=== PATIENT | female | born 1930 | race Caucasian/White ===

== ENCOUNTER 2017-10-04 12:20 | Inpatient (IN) | payer MEDICARE, BC ==
[~2017-10-04] VITALS: Ht 167.6 cm; Wt 83.0 kg
--- NOTE | 2017-10-04 12:26 | NUR ---
BIBRA 86 FROM MD OFFICE D/T SYNCOPAL EPISODE. HYPOTENSIVE IN FIELD, 89 SYSTOLIC. IV ESTABLISHED IN FIELD ON LEFT WRIST, 20G; 500CC NS GIVEN HAND ETCHER. PATIENT IS A/O X 3 AT THIS TIME, BREATHING EVEN AND UNLABORED. NO SOB, NAD, VITALS STABLE. SAFETY AND COMFORT MEASURES IN PLACE. AWAITING MD ORDERS.
[2017-10-04] MEDS ORDERED: MEROPENEM 1 G in IV NS 0.9% 100 ML IV ONE (12:30)
[2017-10-04] MEDS ORDERED: IV NS 0.9% 1,000 ML BAG IV ONE (12:30)
--- NOTE | 2017-10-04 12:39 | NUR ---
IV ON LEFT WRIST BECAME DISLODGED. IV REMOVED, SITE SECURED WITH GAUZE AND TAPE. NEW IV STARTED ON RIGHT HAND, 20G. BLOOD DRAWN AND SENT TO LAB.
[2017-10-04 13:10] LABS: CALCIUM, SERUM 8.2 mg/dL (8.5-10.1); CARBON DIOXIDE 27 mmol/L (21-32); CHLORIDE 105 mmol/L (98-107); CREATININE 1.3 mg/dL (0.6-1.3); GLUCOSE 131 mg/dL (74-106); POTASSIUM 3.9 mmol/L (3.5-5.1); SODIUM SERUM 138 mmol/L (136-145); UREA NITROGEN, BLOOD 29 mg/dL (7-18)
[2017-10-04 13:14] LABS: INR 0.96 (0.85-1.15)
--- NOTE | 2017-10-04 13:15 | NUR ---
CALLED NURSING SUP. FOR TELE BED
[2017-10-04 13:16] LABS: ALANINE AMINOTRANSFERASE 19 U/L (12-78); ALBUMIN 2.6 g/dL (3.4-5.0); ALKALINE PHOSPHATASE 59 U/L (46-116); ASPARTATE AMINOTRANSFERASE 15 U/L (15-37); BILIRUBIN,DIRECT 0.2 mg/dL (0.0-0.2); BILIRUBIN,TOTAL 0.7 mg/dL (0.2-1.0); TOTAL PROTEIN, SERUM 6.1 g/dL (6.4-8.2)
[2017-10-04 13:18] LABS: TROPONIN I < 0.017 ng/mL (0.00-0.056)
[2017-10-04 13:19] LABS: BASOPHILS % (AUTO) 0.1 % (0.0-2.0); EOSINOPHILS % (AUTO) 4.4 % (0.0-6.0); HEMATOCRIT 32 % (33-45); HEMOGLOBIN 10.9 g/dL (11.5-14.8); LYMPHOCYTES # (AUTO) 0.7 /CMM (0.8-4.8); LYMPHOCYTES % (AUTO) 10.7 % (20.0-44.0); MEAN CORPUSCULAR HEMOGLOBIN 33 PG (26.0-33.0); MEAN CORPUSCULAR HGB CONC 34 g/dl (31.0-36.0); MEAN CORPUSCULAR VOLUME 98 fL (82-100); MONOCYTES # (AUTO) 0.2 /CMM (0.1-1.30); MONOCYTES % (AUTO) 3.6 % (2.0-12.0); NEUTROPHILS % (AUTO) 81.2 % (43.0-81.0); PLATELET COUNT (AUTO) 146 /CMM (150-450); WHITE BLOOD COUNT (AUTO) 6.1 K/uL (4.3-11.0)
[2017-10-04] MEDS ORDERED: OMEP20CA10 PO (13:35)
[2017-10-04] MEDS ORDERED: ESTR42.5 VG (13:35)
[2017-10-04] MEDS ORDERED: MULT-213 PO (13:35)
[2017-10-04] MEDS ORDERED: CALC-494 PO (13:35)
[2017-10-04] MEDS ORDERED: ACET325T53 PO (13:35)
[2017-10-04] MEDS ORDERED: CRAN450T3 PO (13:35)
[2017-10-04] MEDS ORDERED: POTA10TA10 PO (13:35)
[2017-10-04] MEDS ORDERED: LENA5CAP PO (13:35)
[2017-10-04] MEDS ORDERED: CARV3.122 PO (13:35)
[2017-10-04] MEDS ORDERED: IPRA3AMP IH (13:35)
[2017-10-04] MEDS ORDERED: NA P133E RC (13:35)
[2017-10-04] MEDS ORDERED: CHOL20004 PO (13:35)
[2017-10-04] MEDS ORDERED: BETH25TA PO (13:35)
[2017-10-04] MEDS ORDERED: LACT1CAP69 PO (13:35)
[2017-10-04] MEDS ORDERED: CYAN10009 PO (13:35)
[2017-10-04] MEDS ORDERED: ASPI-1169 PO (13:35)
[2017-10-04] MEDS ORDERED: BISA10SU8 RC (13:35)
[2017-10-04] MEDS ORDERED: CALC0.253 PO (13:35)
[2017-10-04] MEDS ORDERED: MAGN400O6 PO (13:35)
[2017-10-04] MEDS ORDERED: CYAN10006 IM (13:35)
[2017-10-04] MEDS ORDERED: ASCO500T9 PO (13:35)
[2017-10-04] MEDS ORDERED: ATOR20TA PO (13:35)
[2017-10-04] MEDS ORDERED: TAMS0.4C34 PO (13:35)
[2017-10-04] MEDS ORDERED: MAG355OR18 PO (13:35)
[2017-10-04] MEDS ORDERED: LEVE500T9 PO (13:35)
[2017-10-04] MEDS ORDERED: HYDR-4076 PO (13:35)
[2017-10-04] MEDS ORDERED: PROT946L PO (13:35)
[2017-10-04] MEDS ORDERED: LACT10SO PO (13:35)
[2017-10-04] MEDS ORDERED: MEMA28CA PO (13:35)
[2017-10-04] MEDS ORDERED: FURO-145 PO (13:35)
[2017-10-04] MEDS ORDERED: OMEG1CAP PO (13:35)
--- NOTE | 2017-10-04 13:37 | NUR ---
URINE OBTAINED VIA STRAIGHT CATH AND SENT TO LAB PER MD ORDERS. 300 ML OUTPUT, YELLOW AND CLOUDY.
--- NOTE | 2017-10-04 13:54 | NUR ---
[facility] PAGED, MARISA BORDEN CHIEF OPHTHALMIC TECHNICIAN
--- NOTE | 2017-10-04 13:55 | NUR ---
REPORT GIVEN TO RNSHANIQUE FOR IMER UPON ADMISSION. ASSIGNED TO ROOM 308-1.
[2017-10-04 14:06] LABS: APPEARANCE,URINE Clear (CLEAR); BILIRUBIN,URINE Negative (NEGATIVE); BLOOD, URINE Negative Ery/uL (NEGATIVE); COLOR,URINE Yellow (YELLOW); KETONES,URINE Negative (NEGATIVE); LEUKOCYTE ESTERASE ,URINE Negative (NEGATIVE); NITRITE, URINE Positive (NEGATIVE); PROTEIN,URINE 30 mg/dl (NEGATIVE); UGLUCOSE Negative (NEGATIVE)
[2017-10-04 14:09] LABS: BACTERIA,URINE Many /HPF (None Seen); RBC,URINE 0-2 /HPF (0-2); SQUAMOUS EPITHELIAL CELL,UR Few /HPF (None Seen)
--- NOTE | 2017-10-04 14:17 | NUR ---
REPORT GIVEN TO HOSEA CLOUD FOR IMER UPON ADMISSION. PATIENT NOW GOING TO 116-2.
[2017-10-04] MEDS ORDERED: ONDANSETRON HCL/PF 4 MG/2 ML VIAL IVP PRN (15:00)
[2017-10-04] MEDS ORDERED: MAG HYDROX/AL HYDROX/SIMETH 30 ML UDC PO PRN ×2 (15:00)
[2017-10-04] MEDS ORDERED: BISACODYL SUPP (10 MG) 10 MG/SUPP.RECT SUPP.RECT RC PRN (15:00)
[2017-10-04] MEDS ORDERED: ACETAMINOPHEN 325 MG TABLET PO PRN ×2 (15:00)
[2017-10-04] MEDS ORDERED: Z GUARD REMEDY 2 OZ OINT TP PRN (15:00)
[2017-10-04] MEDS ORDERED: Medication Not On Formulary EA (Ipratropium/Albuterol Sulfate (Duoneb 2.5-0.5 Mg/3 Ml So IH PRN (15:00)
[2017-10-04] MEDS ORDERED: HYDROCODONE/APAP 5/325MG 1 EACH TABLET PO PRN (15:00)
[2017-10-04] MEDS ORDERED: MAGNESIUM HYDROXIDE 30 ML UDC PO PRN ×2 (15:00)
--- NOTE | 2017-10-04 15:02 | NUR ---
PATIENT TRANSPORTED TO [facility] VIA ACLS PROTOCOL. HOSEA CLOUD TO PROVIDE IMER.
[2017-10-04] MEDS ORDERED: CALCIUM CARBONATE 500 MG TAB.CHEW PO PRN (15:30)
--- NOTE | 2017-10-04 15:34 | NUR ---
RN MENDOZA INITIAL NOTES RECEIVED REPORT AND PT FROM ER NURSE EMILI, PT RESTING IN BED, A&O X1 ONLY KNOWS HERSELF VERY CONFUSED, CAREGIVER EZEQUIEL AND DAUGHTER ANUSHKA AT BEDSIDE, DAUGHTERS PHONE NUMBER [phone], PTS FAMILY STATES PT FROM [facility] IN [place], SKIN CHECK COMPLETE WITH NO SKIN ISSUES, ON RA SAT ABOVE 97%, NO SOB OR ACUTE DISTRESS, ON TELE MON SR WITH HR 67, PTS DAUGHTER ANUSHKA IS DECISION MAKER, RT HAND 20 G IV INTACT PATENT NO INFILTRATION NOTED, HOB ELEVATED, BED LOW AND LOCKED, CALL LIGHT WITHIN REACH, PTS FAMILY STATES PT ON PUREE THICK NECTAR ONLY DIET, VS: BP 110/52, HR 70, T 97.6,RESP 18, O2 97% ON RA, 0/10 PAIN. ADMISSION PACKET TO BE COMPLETED. ALL NEEDS MET AT THIS TIME, WILL CONTINUE TO MONITOR.
[2017-10-04 16:00] VITALS: BP 110/52
[2017-10-04] MEDS ORDERED: ALBUTEROL FS 2.5 MG/3 ML VIAL.NEB NEB PRN (16:00)
[2017-10-04] MEDS ORDERED: LACTULOSE 10 G/15 ML UDC (PYXIS) PO PRN (16:00)
[2017-10-04] MEDS ORDERED: IPRATROPIUM NEB FS 0.5 MG/2.5 ML AMPUL.NEB NEB PRN (16:00)
[2017-10-04] MEDS: IV NS 0.9% 1,000 ML IV PRN (16:32)
[2017-10-04] MEDS: LACTOBACILLUS RHAMNOSUS GG 1 EACH CAP.SPRINK PO SCH (16:32)
[2017-10-04] MEDS: MEMANTINE HCL 5 MG TABLET PO SCH (16:32)
[2017-10-04] MEDS: MEROPENEM 500 MG in IV NS 0.9% 50 ML IV SCH (16:33)
[2017-10-04] MEDS: BETHANECHOL CHLORIDE (25 MG) 25 MG TABLET PO SCH ×2 (16:40→21:22)
[2017-10-04] MEDS ORDERED: Medication Not On Formulary EA (Cranberry Extract (Cranberry) 450 MG) PO SCH (17:00)
[2017-10-04] MEDS ORDERED: Medication Not On Formulary EA (Omega-3 Fatty Acids/Fish Oil (Fish Oil 1,000 Mg Capsule) PO SCH (17:00)
[2017-10-04] MEDS ORDERED: FEE PK DOSING 1 MIN EA MC ONE (17:30)
--- NOTE | 2017-10-04 17:45 | NUR ---
RN MENDOZA NOTES BLADDER SCAN DONE MD ORDERED NO URINE FOUND IN SCAN, WILL DO ANOTHER Q6 BLADDER SCAN AT 2345 AND IF MORE THAN 300 ML WILL NEED TO DO STRAIGHT IN AND OUT CATH MD ORDERED.
--- NOTE | 2017-10-04 17:54 | NUR ---
RN MENDOZA NOTES SIGNED PLACED ABOVE PTS BED STATING DIET REGIME AND DIET CONSIDERATIONS, NEED TO FOLLOW DIET PLAN.
--- NOTE | 2017-10-04 17:56 | NUR ---
RN MENDOZA NOTES PTS FAMILY STATED NO DIAPERS BC FAMILY REFUSES DIAPERS.
[2017-10-04] MEDS ORDERED: ESTROGENS,CONJUGATED TUBE VG SCH (18:00)
--- NOTE | 2017-10-04 18:35 | NUR ---
RN MENDOZA ENDING NOTES PTS LATEX ALLERGY SIGN PLACED ON DOOR, LATEX FREE GLOVES ARE INSIDE ROOM NEXT TO PTS BED, ALL NEEDS MET, ALL DUE MEDS GIVEN, WILL ENDORSE TO PM NURSE
[2017-10-04] MEDS: VANCOMYCIN 1 GM in IV D5W 250 ML IV SCH (18:41)
[2017-10-04 20:00] VITALS: BP 135/57
--- NOTE | 2017-10-04 20:00 | NUR ---
RN NOTE RECEIVED PATIENT IN THE BED, ORIENTED TO NAME ONLY, AWAKE, ONGOING FLUIDS, FAMILY IS BY BEDSIDE, NO DISTRESS NOTED, PATIENT IS ALLERGIC TO LATEX, WILL TAKE ALL SAFETY MEASURES , WILL CONTINUE TO MONITOR PATIENT
[2017-10-04] MEDS: LEVETIRACETAM (250 MG) 250 MG TABLET PO SCH (21:22)
[2017-10-05] VITALS: BP 106/39
--- NOTE | 2017-10-05 | NUR ---
RN NOTE BLADDER SCAN WAS DONE 196 ML NOTED, PRINTED OUT THE RECORD AND PLACED IN THE CHART
[2017-10-05 04:00] VITALS: BP 112/55
[2017-10-05] MEDS: MEROPENEM 500 MG in IV NS 0.9% 50 ML IV SCH ×2 (04:28→16:40)
--- NOTE | 2017-10-05 06:44 | NUR ---
RN NOTE BLADDER SCAN DONE, 37 ML NOTED, PRINTED OUT RESULT AND PLACED IN THE CHART
[2017-10-05 07:31] LABS: CHOLESTEROL 99 mg/dL (<200); HDL CHOLESTEROL 59 mg/dL (40-60); LDL 47 mg/dL (0-99); THYROID STIMULATING HORMONE 0.739 uIU/mL (0.358-3.74); TRIGLYCERIDES 89 mg/dL (30-150)
[2017-10-05 07:35] LABS: ALANINE AMINOTRANSFERASE 20 U/L (12-78); ALBUMIN 2.1 g/dL (3.4-5.0); ALKALINE PHOSPHATASE 45 U/L (46-116); ASPARTATE AMINOTRANSFERASE 12 U/L (15-37); BILIRUBIN,TOTAL 0.7 mg/dL (0.2-1.0); CARBON DIOXIDE 26 mmol/L (21-32); CHLORIDE 111 mmol/L (98-107); CREATININE 1.2 mg/dL (0.6-1.3); GLUCOSE 88 mg/dL (74-106); MAGNESIUM 1.7 mg/dL (1.8-2.4); PHOSPHORUS 3.2 mg/dL (2.5-4.9); POTASSIUM 3.7 mmol/L (3.5-5.1); SODIUM SERUM 142 mmol/L (136-145); TOTAL PROTEIN, SERUM 5.3 g/dL (6.4-8.2); UREA NITROGEN, BLOOD 18 mg/dL (7-18)
[2017-10-05 08:00] VITALS: BP 110/46
[2017-10-05] MEDS: ASPIRIN 81 MG TAB.CHEW PO SCH (08:22)
[2017-10-05] MEDS: LACTOBACILLUS RHAMNOSUS GG 1 EACH CAP.SPRINK PO SCH ×2 (08:22→17:33)
[2017-10-05] MEDS: TAMSULOSIN 0.4 MG CAP.SR.24H PO SCH (08:22)
[2017-10-05] MEDS: CHOLECALCIFEROL 1,000 UNIT TABLET (VIT D3) PO SCH (08:22)
[2017-10-05] MEDS: CALCITRIOL 0.25 MCG CAPSULE PO SCH (08:22)
[2017-10-05] MEDS: ASCORBIC ACID 500 MG TABLET PO SCH (08:22)
[2017-10-05] MEDS: BETHANECHOL CHLORIDE (25 MG) 25 MG TABLET PO SCH ×4 (08:22→21:30)
[2017-10-05] MEDS: PROSOURCE / PROSTAT (PYXIS) 30 ML UDC PO SCH (08:22)
[2017-10-05] MEDS: PANTOPRAZOLE 40 MG VIAL IV SCH (08:22)
[2017-10-05] MEDS: MULTIVIT, IRON, MIN NO. 8, FA 1 TAB PO SCH (08:22)
[2017-10-05] MEDS: LEVETIRACETAM (250 MG) 250 MG TABLET PO SCH ×2 (08:23→21:30)
[2017-10-05] MEDS: CYANOCOBALAMIN 500 MCG TABLET PO SCH (08:23)
[2017-10-05] MEDS: MEMANTINE HCL 5 MG TABLET PO SCH ×2 (08:23→17:33)
[2017-10-05] MEDS ORDERED: NA PHOS,M-B/NA PHOS,DI-BA 1 EA ENEMA RC SCH (09:00)
[2017-10-05] MEDS: IV NS 0.9% 1,000 ML IV PRN (11:17)
[2017-10-05 12:00] VITALS: BP 115/49
[2017-10-05] MEDS: Magnesium 1GM/D5W 100ML PREMIX 100 ML IV SCH ×2 (12:39→14:19)
[2017-10-05 16:00] VITALS: BP 131/49
[2017-10-05] MEDS: VANCOMYCIN 1 GM in IV D5W 250 ML IV SCH (17:33)
--- NOTE | 2017-10-05 19:25 | NUR ---
RN MENDOZA NOTE RECEIVED PATIENT RESTING COMFORTABLY IN BED, AOX1, TELE SR, NO CARDIAC OR RESPIRATORY DISTRESS, ON ROOM AIR, INCONTINENT, SKIN KEPT CLEAN AND DRY, R WRIST #20G PATENT FLUSHING WELL WITH NS AT 75ML/HR, PATENT FLUSHING WELL, SITE CDI, NO S/SX OF N/V, SAFETY MAINTAINED AT ALL TIMES, CALL LIGHT WITHIN REACH, BED IN LOW LOCKED POSITION, WILL CONTINUE TO MONITOR FOR ANY CHANGES IN CONDITION.
[2017-10-05 20:00] VITALS: BP 154/46
[2017-10-05] MEDS: ATORVASTATIN 10 MG TABLET PO SCH (21:30)
[2017-10-06] VITALS: BP 154/46
--- NOTE | 2017-10-06 00:56 | NUR ---
TELE/RN NOTES RECEIVED ENDORSEMENT FROM RN/MENDOZA FOR CONTINUITY OF CARE. PATIENT RESTING IN BED, ASLEEP. MONITORING FOR ANY S/S OF COMPLICATIONS. REQUIRE ASSISTANCE FOR SAFETY TELE MONITOR AT SR 66, BED IN LOCK POSITION. IV ON RIGHT HAND GAUGE 20 WITH IV HYDRATION ORDER, TO MONITOR . PATIENT WITH DX OF CHF. CALL LIGHT S WITHIN REACH.
--- NOTE | 2017-10-06 02:00 | NUR ---
tele/rn notes blader retention 80ml
[2017-10-06] MEDS: MEROPENEM 500 MG in IV NS 0.9% 50 ML IV SCH ×2 (03:31→15:44)
[2017-10-06 04:00] VITALS: BP 122/40
[2017-10-06 05:59] VITALS: BP 122/40
[2017-10-06 06:31] LABS: BASOPHILS % (AUTO) 0.3 % (0.0-2.0); EOSINOPHILS % (AUTO) 5.7 % (0.0-6.0); HEMATOCRIT 31 % (33-45); HEMOGLOBIN 10.4 g/dL (11.5-14.8); LYMPHOCYTES # (AUTO) 0.8 /CMM (0.8-4.8); LYMPHOCYTES % (AUTO) 22.4 % (20.0-44.0); MEAN CORPUSCULAR HEMOGLOBIN 33 PG (26.0-33.0); MEAN CORPUSCULAR HGB CONC 34 g/dl (31.0-36.0); MEAN CORPUSCULAR VOLUME 98 fL (82-100); MONOCYTES # (AUTO) 0.3 /CMM (0.1-1.30); NEUTROPHILS # (AUTO) 2.2 /CMM (1.8-8.9); NEUTROPHILS % (AUTO) 63.6 % (43.0-81.0); PLATELET COUNT (AUTO) 153 /CMM (150-450); RDW COEFFICIENT OF VARIATION 15.8 (11.5-15.0); RED BLOOD CELL COUNT(AUTO) 3.12 MIL/uL (4.0-5.2); WHITE BLOOD COUNT (AUTO) 3.5 K/uL (4.3-11.0)
--- NOTE | 2017-10-06 06:46 | NUR ---
TELE/RN NOTES PATIENT IN BED, ALERT, ASLEEP BUT AWAKENS EASILY. RESPIRATIONS EVEN AND UNLABORED, GET OBSERVED GURDING OR GRIMACE. ON SR AT 66, ON CHUCKS, KEEP SKIN INTACT AND DRY, IV ON RIGHT HAND W/ NO S/S OF INFILTRATION/BLADDER SCAN CHECK. SAFETY PRECAUTION MEASURES, ON GENTLE IV HYDRATION. WILL MONITOR AND PROVIDE CARE.WILL ENDORSE TO AM RN FOR IMER.
[2017-10-06 06:55] LABS: CALCIUM, SERUM 8.7 mg/dL (8.5-10.1); CARBON DIOXIDE 26 mmol/L (21-32); CHLORIDE 108 mmol/L (98-107); CREATININE 1.2 mg/dL (0.6-1.3); GLUCOSE 92 mg/dL (74-106); MAGNESIUM 2.2 mg/dL (1.8-2.4); PHOSPHORUS 3.4 mg/dL (2.5-4.9); POTASSIUM 3.5 mmol/L (3.5-5.1); SODIUM SERUM 141 mmol/L (136-145); UREA NITROGEN, BLOOD 17 mg/dL (7-18)
--- NOTE | 2017-10-06 07:30 | NUR ---
RN M/S INITIAL NOTES: RECEIVED PT IN BED AWAKE. A&O X1. ON ROOM AIR, NO RESPIRATORY DISTRESS NOTED AT THIS TIME. NO C/O PAIN OR DISCOMFORT. IV TO R HAND IN PLACE, CONNECTED TO IV FLUIDS AT 75ML/HR ORDERED. BED IN LOW LOCKED POSITION, CALL LIGHT WITHIN REACH. PLAN OF CARE DISCUSSED WITH PT. WILL CONTINUE TO MONITOR.
[2017-10-06 08:00] VITALS: BP 143/49
[2017-10-06] MEDS: PANTOPRAZOLE 40 MG VIAL IV SCH (08:55)
[2017-10-06] MEDS: ASPIRIN 81 MG TAB.CHEW PO SCH (08:56)
[2017-10-06] MEDS: LACTOBACILLUS RHAMNOSUS GG 1 EACH CAP.SPRINK PO SCH ×2 (08:56→16:30)
[2017-10-06] MEDS: CALCITRIOL 0.25 MCG CAPSULE PO SCH (08:56)
[2017-10-06] MEDS: CYANOCOBALAMIN 500 MCG TABLET PO SCH (08:56)
[2017-10-06] MEDS: MEMANTINE HCL 5 MG TABLET PO SCH ×2 (08:56→16:30)
[2017-10-06] MEDS: ASCORBIC ACID 500 MG TABLET PO SCH (08:56)
[2017-10-06] MEDS: CHOLECALCIFEROL 1,000 UNIT TABLET (VIT D3) PO SCH (08:57)
[2017-10-06] MEDS: BETHANECHOL CHLORIDE (25 MG) 25 MG TABLET PO SCH ×4 (08:57→21:57)
[2017-10-06] MEDS: TAMSULOSIN 0.4 MG CAP.SR.24H PO SCH (08:57)
[2017-10-06] MEDS: LEVETIRACETAM (250 MG) 250 MG TABLET PO SCH ×2 (08:57→21:57)
[2017-10-06] MEDS: MULTIVIT, IRON, MIN NO. 8, FA 1 TAB PO SCH (08:57)
[2017-10-06] MEDS: PROSOURCE / PROSTAT (PYXIS) 30 ML UDC PO SCH (09:02)
[2017-10-06] MEDS: IV NS 0.9% 1,000 ML IV PRN (10:12)
--- NOTE | 2017-10-06 11:00 | NUR ---
RN M/S NOTES: PT NOTED WITH MILD EDEMA TO BILAT HANDS. FAMILY CONCERNED THAT PT IS RECEIVING TOO MUCH FLUIDS AND RETAINING IT. SPOKE WITH MARISA LUNA. OK TO D/C IV FLUIDS. LABS SCHEDULED FOR TOMORROW AM. FAMILY MADE AWARE. WILL CONTINUE TO ENCOURAGE PT TO DRINK FLUIDS.
--- NOTE | 2017-10-06 13:00 | NUR ---
BLADDER SCAN DONE. 416CC RESULT. STRAIGHT CATH I&O PERFORMED. REMOVED 500CC. PT TOLERATED WELL,.
[2017-10-06 16:00] VITALS: BP 124/45
[2017-10-06] MEDS: VANCOMYCIN 1 GM in IV D5W 250 ML IV SCH (18:03)
--- NOTE | 2017-10-06 18:45 | NUR ---
BLADDER SCAN DONE. 116CC NOTED.
--- NOTE | 2017-10-06 19:00 | NUR ---
RN M/S END NOTE: PT REMAINS IN BED, AWAKE A&O X2. NOTED WITH INCREASED SWELLING TO R HAND. IV REMOVED AND RE-STARTED IN L WRIST #22GAUGE. PT TOLERATED WELL. R HAND REMAINS ELEVATED ON PILLOWS. DENIES ANY PAIN OR DISCOMFORT AT THIS TIME. REMAINS ON ROOM AIR, SATURATING >95% AT ALL TIMES. BED IN LOW LOCKED POSITION, CALL LIGHT WITHIN REACH. WILL ENDORSE TO PM SHIFT FOR CONTINUITY OF CARE.
[2017-10-06 20:00] VITALS: BP 111/44
--- NOTE | 2017-10-06 20:00 | NUR ---
MENDOZA RN NOTES RECEIVED BEDSIDE REPORT FROM AM NURSE. PT IN BED AWAKE. A&O X1. ON ROOM AIR, NO RESPIRATORY DISTRESS NOTED AT THIS TIME. NO C/O PAIN OR DISCOMFORT. IV TO LEFT WRIST 22G SL IN PLACE,INTACT., PATIENT.BED IN LOW LOCKED POSITION, CALL LIGHT WITHIN REACH. PLAN OF CARE DISCUSSED WITH PT. WILL CONTINUE TO MONITOR.
[2017-10-06] MEDS: CEFTRIAXONE 1 G in IV NS 0.9% 50 ML IV SCH (20:46)
[2017-10-06] MEDS: ATORVASTATIN 10 MG TABLET PO SCH (21:57)
[2017-10-07 04:00] VITALS: BP 106/58
[2017-10-07 06:32] LABS: BASOPHILS % (AUTO) 0.3 % (0.0-2.0); EOSINOPHILS % (AUTO) 3.1 % (0.0-6.0); HEMATOCRIT 32 % (33-45); HEMOGLOBIN 10.6 g/dL (11.5-14.8); LYMPHOCYTES # (AUTO) 0.8 /CMM (0.8-4.8); LYMPHOCYTES % (AUTO) 20.8 % (20.0-44.0); MEAN CORPUSCULAR HEMOGLOBIN 33 PG (26.0-33.0); MEAN CORPUSCULAR HGB CONC 34 g/dl (31.0-36.0); MEAN CORPUSCULAR VOLUME 97 fL (82-100); MONOCYTES # (AUTO) 0.3 /CMM (0.1-1.30); MONOCYTES % (AUTO) 7.6 % (2.0-12.0); NEUTROPHILS # (AUTO) 2.7 /CMM (1.8-8.9); NEUTROPHILS % (AUTO) 68.2 % (43.0-81.0); PLATELET COUNT (AUTO) 188 /CMM (150-450); RDW COEFFICIENT OF VARIATION 15.7 (11.5-15.0); RED BLOOD CELL COUNT(AUTO) 3.24 MIL/uL (4.0-5.2)
[2017-10-07 07:23] LABS: CALCIUM, SERUM 8.6 mg/dL (8.5-10.1); CARBON DIOXIDE 24 mmol/L (21-32); CHLORIDE 107 mmol/L (98-107); CREATININE 1.1 mg/dL (0.6-1.3); GLUCOSE 100 mg/dL (74-106); MAGNESIUM 1.8 mg/dL (1.8-2.4); PHOSPHORUS 3.3 mg/dL (2.5-4.9); POTASSIUM 3.7 mmol/L (3.5-5.1); SODIUM SERUM 141 mmol/L (136-145); UREA NITROGEN, BLOOD 15 mg/dL (7-18)
[2017-10-07 08:00] VITALS: BP_SYST 136; BP_SYST 168; BP_DIAS 33; BP_DIAS 54
--- NOTE | 2017-10-07 08:00 | NUR ---
MS RN NOTES PATIENT IN BED RESTING. ALERT, ORIENTED X1 NO SOB OR ACUTE DISTRESS NOTED. BED IN LOW LOCKED POSITION. CALL LIGHT WITHIN REACH. WILL CONTINUE TO MONITOR.
[2017-10-07] MEDS: LEVETIRACETAM (250 MG) 250 MG TABLET PO SCH ×2 (08:35→20:23)
[2017-10-07] MEDS: CALCITRIOL 0.25 MCG CAPSULE PO SCH (08:35)
[2017-10-07] MEDS: ASPIRIN 81 MG TAB.CHEW PO SCH (08:36)
[2017-10-07] MEDS: MEMANTINE HCL 5 MG TABLET PO SCH ×2 (08:36→16:34)
[2017-10-07] MEDS: LACTOBACILLUS RHAMNOSUS GG 1 EACH CAP.SPRINK PO SCH ×2 (08:36→16:34)
[2017-10-07] MEDS: CHOLECALCIFEROL 1,000 UNIT TABLET (VIT D3) PO SCH (08:36)
[2017-10-07] MEDS: BETHANECHOL CHLORIDE (25 MG) 25 MG TABLET PO SCH ×4 (08:36→22:25)
[2017-10-07] MEDS: ASCORBIC ACID 500 MG TABLET PO SCH (08:36)
[2017-10-07] MEDS: PANTOPRAZOLE 40 MG VIAL IV SCH (08:36)
[2017-10-07] MEDS: CYANOCOBALAMIN 500 MCG TABLET PO SCH (08:37)
[2017-10-07] MEDS: TAMSULOSIN 0.4 MG CAP.SR.24H PO SCH (08:37)
[2017-10-07] MEDS: MULTIVIT, IRON, MIN NO. 8, FA 1 TAB PO SCH (08:37)
[2017-10-07] MEDS: PROSOURCE / PROSTAT (PYXIS) 30 ML UDC PO SCH (08:38)
--- NOTE | 2017-10-07 12:50 | NUR ---
MS RN NOTES BLADDER SCANNED PERFORMED ONLY 147ML READING. WILL CONTINUE TO MONITOR.
[2017-10-07 16:00] VITALS: BP 147/57
[2017-10-07] MEDS: VANCOMYCIN 1 GM in IV D5W 250 ML IV SCH (18:00)
--- NOTE | 2017-10-07 18:23 | NUR ---
MS RN NOTES PATIENT IN BED RESTING. FAMILY AT BEDSIDE. PATIENT ALERT, ORIENTED X1. ALL DUE MEDICATIONS ADMINISTERED. ALL NEEDS MET. WILL ENDORSE CARE TO PM SHIFT.
--- NOTE | 2017-10-07 19:05 | NUR ---
MS CLOUD OPENING NOTES: RECEIVED PT IN BED AND IS AWAKE AT THIS TIME. DAUGHTER AT BEDSIDE. PT IS A/OX1-2. PT ON ROOM AIR. PT HAS IV ON L FOREARM #22G AND IS PATENT AND INTACT. CURRENTLY S/L. BED ALARM ACTIVATED. CALL LIGHT WITHIN PT'S REACH. BED KEPT IN LOW, LOCKED POSITION, AND SIDE RAILS X 3UP. WILL CONTINUE TO MONITOR PT. Addendum: 10/08/17 at 0508 by SHAE BERMAN RN NOTED RIGHT ARM SWOLLEN. ELEVATED R ARM WITH PILLOW.
[2017-10-07] MEDS: CEFTRIAXONE 1 G in IV NS 0.9% 50 ML IV SCH (19:55)
[2017-10-07 20:00] VITALS: BP 122/74
[2017-10-07] MEDS: ATORVASTATIN 10 MG TABLET PO SCH (22:25)
--- NOTE | 2017-10-07 23:22 | NUR ---
MS RN NOTES: BLADDER SCAN PERFORMED. ONLY 31 ML SHOWING. WILL CONTINUE TO MONITOR.
[2017-10-08] VITALS: BP 119/69
[2017-10-08 04:00] VITALS: BP 112/68
--- NOTE | 2017-10-08 05:27 | NUR ---
MS RN NOTES: BLADDER SCAN DONE. 201 ML SHOWING. CHARGE NURSE AWARE. WILL MONITOR ACCORDINGLY.
--- NOTE | 2017-10-08 06:49 | NUR ---
MS RN CLOSING NOTES: ALL NEEDS WERE ATTENDED AND ANTICIPATED FOR. PT ASLEEP AT THIS TIME. PT KEPT CLEAN, DRY, AND COMFORTABLE. PT ON ROOM AIR AND TOLERATING WELL. PT HAS L FOREARM #22G AND IS PATENT AND INTACT. CURRENTLY H/L. R UPPER ARM ELEVATED WITH 2 PILLOWS. CALL LIGHT WITHIN PT'S REACH. BED KEPT IN LOW, LOCKED POSITION, AND SIDE RAILS X 3UP. BED ALARM ACTIVATED. WILL ENDORSE TO AM NURSE FOR IMER.
[2017-10-08 07:42] LABS: BASOPHILS % (AUTO) 0.9 % (0.0-2.0); EOSINOPHILS % (AUTO) 4.1 % (0.0-6.0); HEMATOCRIT 31 % (33-45); HEMOGLOBIN 10.3 g/dL (11.5-14.8); LYMPHOCYTES % (AUTO) 27.9 % (20.0-44.0); MEAN CORPUSCULAR HEMOGLOBIN 33 PG (26.0-33.0); MEAN CORPUSCULAR HGB CONC 34 g/dl (31.0-36.0); MEAN CORPUSCULAR VOLUME 98 fL (82-100); MONOCYTES # (AUTO) 0.4 /CMM (0.1-1.30); MONOCYTES % (AUTO) 9.9 % (2.0-12.0); NEUTROPHILS % (AUTO) 57.2 % (43.0-81.0); PLATELET COUNT (AUTO) 210 /CMM (150-450); RDW COEFFICIENT OF VARIATION 15.8 (11.5-15.0); RED BLOOD CELL COUNT(AUTO) 3.13 MIL/uL (4.0-5.2); WHITE BLOOD COUNT (AUTO) 3.6 K/uL (4.3-11.0)
[2017-10-08 07:56] LABS: CALCIUM, SERUM 8.8 mg/dL (8.5-10.1); CARBON DIOXIDE 28 mmol/L (21-32); CHLORIDE 108 mmol/L (98-107); CREATININE 1.1 mg/dL (0.6-1.3); GLUCOSE 92 mg/dL (74-106); PHOSPHORUS 4.1 mg/dL (2.5-4.9); POTASSIUM 3.4 mmol/L (3.5-5.1); SODIUM SERUM 144 mmol/L (136-145); UREA NITROGEN, BLOOD 15 mg/dL (7-18)
--- NOTE | 2017-10-08 07:58 | NUR ---
MS RN OPENING NOTES RECEIVED PT FROM NIGHTSHIFT NURSE IN STABLE CONDITION . PT IS A/O X1. NO SOB OR ACUTE SIGNS OF DISTRESS NOTED. BREATHING IS EVEN AND UNLABORED. IV NOTED TO BE PATENT AND INTACT. NO REDNESS OR SIGNS OF INFILTRATION NOTED. BED IN LOW LOCKED POSITION, SIDE RAILS UP X3, CALL LIGHT WITHIN REACH. BED ALARM ON. WILL CONTINUE TO MONITOR
[2017-10-08 08:00] VITALS: BP_SYST 112; BP_SYST 116; BP_DIAS 42; BP_DIAS 59
[2017-10-08] MEDS: LEVETIRACETAM (250 MG) 250 MG TABLET PO SCH (08:38)
[2017-10-08] MEDS: LACTOBACILLUS RHAMNOSUS GG 1 EACH CAP.SPRINK PO SCH (08:38)
[2017-10-08] MEDS: PANTOPRAZOLE 40 MG VIAL IV SCH (08:38)
[2017-10-08] MEDS: CALCITRIOL 0.25 MCG CAPSULE PO SCH (08:38)
[2017-10-08] MEDS: ASPIRIN 81 MG TAB.CHEW PO SCH (08:38)
[2017-10-08] MEDS: ASCORBIC ACID 500 MG TABLET PO SCH (08:39)
[2017-10-08] MEDS: MEMANTINE HCL 5 MG TABLET PO SCH (08:39)
[2017-10-08] MEDS: CHOLECALCIFEROL 1,000 UNIT TABLET (VIT D3) PO SCH (08:39)
[2017-10-08] MEDS: BETHANECHOL CHLORIDE (25 MG) 25 MG TABLET PO SCH ×2 (08:39→11:28)
[2017-10-08] MEDS: MULTIVIT, IRON, MIN NO. 8, FA 1 TAB PO SCH (08:40)
[2017-10-08] MEDS: TAMSULOSIN 0.4 MG CAP.SR.24H PO SCH (08:40)
[2017-10-08] MEDS: CYANOCOBALAMIN 500 MCG TABLET PO SCH (08:40)
[2017-10-08] MEDS: PROSOURCE / PROSTAT (PYXIS) 30 ML UDC PO SCH (09:29)
[2017-10-08] MEDS ORDERED: POTASSIUM CHLORIDE 20 MEQ TAB.PRT.SR PO SCH (10:30)
--- NOTE | 2017-10-08 14:00 | NUR ---
MS VICE CHANCELLOR NOTES PT WAS DISCHARGED FROM FACILITY IN STABLE CONDITION. ALL NEEDS WERE MET DURING SHIFT AND ORDERS CARRIED OUT ACCORDINGLY. ALL DUE MEDS GIVEN. AM CARE PRIOR TO DISCHARGE. PT WAS REPOSITIONED AND TURNED Q2 HRS. SHE WAS KEPT CLEAN AND DRY THROUGHOUT SHIFT. IV WAS SUCCESSFULLY REMOVED WITH TIP INTACT. REPORT CALLED AND GIVEN TO LUIS MIGUEL THE RECEIVING NURSE AT [facility]. D/C PAPERWORK GIVEN TO THE AMBULANCE STAFF. PT WAS UNABLE TO SIGN PAPERWORK DUE TO MENTAL STATUS THEREFORE MYSELF AND A FELLOW RN SIGNED ALL PAPERWORK. COPIES WERE MADE AND PLACED IN PT'S CHART. PT'S DAUGHTER AWARE OF D/C. SHE WAS SAFELY TRANSFERRED FROM [place] TO [facility] AND LEFT VIA AMBULANCE TRANSPORT.
[2017-10-28] MEDS ORDERED: CYANOCOBALAMIN 1,000 MCG/ML VIAL IM SCH (09:00)
== END 2017-10-08 14:00 | DRG 809 ==
LOC: ER 12:22 → TELE-TD 14:42 → MEDSG1 10-05 20:21
PROVIDERS: ADMIT Registered Nurse; ATTEND Registered Nurse
DX: D61.810 Antineoplastic chemotherapy induced pancytopenia (principal); N39.0 Urinary tract infection, site not specified; I13.0 Hypertensive heart and chronic kidney disease with heart failure and stage 1 through stage 4 chronic kidney disease, or unspecified chronic kidney disease; C90.01 Multiple myeloma in remission; L03.113 Cellulitis of right upper limb; N18.9 Chronic kidney disease, unspecified; J44.9 Chronic obstructive pulmonary disease, unspecified; G40.909 Epilepsy, unspecified, not intractable, without status epilepticus; F03.90 Unspecified dementia, unspecified severity, without behavioral disturbance, psychotic disturbance, mood disturbance, and anxiety; I11.0 Hypertensive heart disease with heart failure; I50.9 Heart failure, unspecified; Z87.440 Personal history of urinary (tract) infections; Z79.899 Other long term (current) drug therapy; Z79.82 Long term (current) use of aspirin; M19.90 Unspecified osteoarthritis, unspecified site; Z88.8 Allergy status to other drugs, medicaments and biological substances; Z91.040 Latex allergy status; T45.1X5A Adverse effect of antineoplastic and immunosuppressive drugs, initial encounter; Y92.129 Unspecified place in nursing home as the place of occurrence of the external cause; B96.20 Unspecified Escherichia coli [E. coli] as the cause of diseases classified elsewhere; Z92.21 Personal history of antineoplastic chemotherapy; I95.9 Hypotension, unspecified
CPT/HCPCS: 36415; 71045-TC; 77075-TC; 80048-TC; 80053-TC; 80061-TC; 80076-TC; 80202-TC; 81000-TC; 83605-TC; 83735-TC; 84100-TC; 84443-TC; 84484-TC; 85025-TC; 85730-TC; 87040-TC; 87081-TC; 87086-TC; 87186-TC; A4216; C9113; J0696; J2185; J3370; J3475; J7030; J7060; Z7610

== ENCOUNTER 2017-12-13 12:27 | Inpatient (IN) | payer MEDICARE, BC ==
[~2017-12-13] VITALS: Ht 170.2 cm; Wt 80.7 kg
[~2017-12-13 12:27] MED LIST: ACET325T53 PO; ASCO500T9 PO; ASPI-1169 PO; ATOR20TA PO; BETH25TA PO; BISA10SU8 RC; CALC-494 PO; CALC0.253 PO; CARV3.122 PO; CHOL20004 PO; CRAN450T3 PO; CYAN10006 IM; CYAN10009 PO; ESTR42.5 VG; FURO-145 PO; HYDR-4076 PO; IPRA3AMP23 IH; LACT10SO PO; LACT1CAP69 PO; LENA5CAP PO; LEVE500T9 PO; MAG355OR18 PO; MAGN400O6 PO; MEMA28CA PO; MULT-213 PO; NA P133E RC; OMEG1CAP PO; OMEP20CA10 PO; POTA10TA10 PO; PROT946L PO; TAMS0.4C34 PO
--- NOTE | 2017-12-13 12:30 | NUR ---
SENT BY PMD FOR GENERALIZED WEAKNESS X 1 WEEK, NAD NOTED, VSS, RESP EVEN AND UNLABORED, PT WAS PUT ON MONITOR AND HOSPITAL GOWN, WAITING FOR MD HURTADO.
[2017-12-13] MEDS ORDERED: IV NS 0.9% 1,000 ML BAG IV ONE (13:00)
[2017-12-13 13:08] LABS: BASOPHILS % (AUTO) 0.4 % (0.0-2.0); EOSINOPHILS % (AUTO) 4.4 % (0.0-6.0); HEMATOCRIT 35 % (33-45); HEMOGLOBIN 11.7 g/dL (11.5-14.8); LYMPHOCYTES # (AUTO) 0.5 /CMM (0.8-4.8); LYMPHOCYTES % (AUTO) 10.4 % (20.0-44.0); MEAN CORPUSCULAR HEMOGLOBIN 33 PG (26.0-33.0); MEAN CORPUSCULAR HGB CONC 34 g/dl (31.0-36.0); MEAN CORPUSCULAR VOLUME 97 fL (82-100); MONOCYTES # (AUTO) 0.2 /CMM (0.1-1.30); MONOCYTES % (AUTO) 3.2 % (2.0-12.0); NEUTROPHILS # (AUTO) 3.9 /CMM (1.8-8.9); NEUTROPHILS % (AUTO) 81.6 % (43.0-81.0); PLATELET COUNT (AUTO) 231 /CMM (150-450); RDW COEFFICIENT OF VARIATION 15.9 (11.5-15.0); RED BLOOD CELL COUNT(AUTO) 3.58 MIL/uL (4.0-5.2); WHITE BLOOD COUNT (AUTO) 4.8 K/uL (4.3-11.0)
[2017-12-13 13:19] LABS: CALCIUM, SERUM 8.4 mg/dL (8.5-10.1); CARBON DIOXIDE 24 mmol/L (21-32); CHLORIDE 106 mmol/L (98-107); CREATININE 1.5 mg/dL (0.6-1.3); GLUCOSE 182 mg/dL (74-106); POTASSIUM 3.4 mmol/L (3.5-5.1); SODIUM SERUM 140 mmol/L (136-145); UREA NITROGEN, BLOOD 24 mg/dL (7-18)
--- NOTE | 2017-12-13 13:21 | NUR ---
CALLED NURSING REJECTOR AND REQUESTED A TELE BED FOR THIS PT.
[2017-12-13 13:27] LABS: TROPONIN I < 0.017 ng/mL (0.00-0.056)
--- NOTE | 2017-12-13 13:27 | NUR ---
CALLED LAB FOR LEAD GENERATION REPRESENTATIVE - URINE AND FLU SWAB
[2017-12-13 13:31] LABS: INR 0.91 (0.85-1.15)
[2017-12-13 13:35] LABS: ALANINE AMINOTRANSFERASE 28 U/L (12-78); ALBUMIN 2.9 g/dL (3.4-5.0); ALKALINE PHOSPHATASE 54 U/L (46-116); ASPARTATE AMINOTRANSFERASE 18 U/L (15-37); B-TYPE NATRIURETIC PEPTIDE 267 PG/ML (0-125); BILIRUBIN,DIRECT 0.1 mg/dL (0.0-0.2); BILIRUBIN,TOTAL 0.4 mg/dL (0.2-1.0); TOTAL PROTEIN, SERUM 6.2 g/dL (6.4-8.2)
[2017-12-13 13:43] LABS: APPEARANCE,URINE Clear (CLEAR); BILIRUBIN,URINE Negative (NEGATIVE); BLOOD, URINE Negative Ery/uL (NEGATIVE); COLOR,URINE Yellow (YELLOW); KETONES,URINE Trace (NEGATIVE); LEUKOCYTE ESTERASE ,URINE Negative (NEGATIVE); NITRITE, URINE Negative (NEGATIVE); PH,URINE 6.5 (5.0-8.0); PROTEIN,URINE 30 mg/dl (NEGATIVE); UGLUCOSE Negative (NEGATIVE); UROBILINOGEN,URINE 0.2 EU/dL (0.2)
--- NOTE | 2017-12-13 13:46 | NUR ---
CALLED [facility] FOR PANEL CALL AND DR COLTON VU WAS PAGED.
--- NOTE | 2017-12-13 13:58 | NUR ---
PT IS ASSIGNED TO [facility]#: [id number], DX: ANDREINA, AND ACCEPTING MD: DR COLTON VU
[2017-12-13] MEDS ORDERED: LEVOFLOXACIN 750 MG /D5W 150ML PIGGYBACK IV ONE (14:00)
[2017-12-13] MEDS ORDERED: CLOT15CR63 TP (14:08)
[2017-12-13 14:15] LABS: BACTERIA,URINE None seen /HPF (None Seen); RBC,URINE 0-2 /HPF (0-2); SQUAMOUS EPITHELIAL CELL,UR Few /HPF (None Seen); WBC,URINE 0-2 /HPF (0-3)
[2017-12-13] MEDS ORDERED: LINA290C PO (14:30)
[2017-12-13] MEDS ORDERED: POTA-88 PO (14:30)
[2017-12-13] MEDS ORDERED: NITR100C6 PO (14:30)
[2017-12-13] MEDS ORDERED: LACT10SO PO (14:30)
[2017-12-13] MEDS ORDERED: NA PHOS,M-B/NA PHOS,DI-BA 1 EA ENEMA RC PRN (15:00)
[2017-12-13] MEDS ORDERED: BISACODYL SUPP (10 MG) 10 MG/SUPP.RECT SUPP.RECT RC PRN (15:00)
--- NOTE | 2017-12-13 15:15 | NUR ---
COOPERATIVE EDUCATION COORDINATORLICENSED AND CERTIFIED MIDWIFE NOTES RECEIVED PT FROM ER NURSE IN STABLE CONDITION. PT WILL BE ADMITTED FRO AMS ASSOCIATED WITH UTI ALONG WITH ENCEPHALOPATHY UNDER DR. SEGURA. PT IS A/O X2 (PERSON, PLACE). NO SOB OR ACUTE SIGNS OF DISTRESS NOTED. BREATHING IS EVEN AND UNLABORED. PT SATING ABOVE 94% ON RA. VITALS STABLE AT THIS TIME. IV TO RIGHT WRIST NOTED TO BE PATENT AND INTACT. PT CURRENTLY RECEIVING LEVAQUIN INFUSION WHICH BEGAN IN ER. SHE IS CURRENTLY SR ON THE TELE MONITOR WITH A HR OF 68. SKIN ASSESSMENT COMPLETED AND PHOTOS PLACED IN PT'S CHART. BELONGINGS VERIFIED. PT'S CLOTHING TAKEN HOME BY PT'S DAUGHTER. PT WAS ORIENTED TO ROOM AND USE OF CALL LIGHT. WILL AWAIT FOR FURTHER ORDERS FROM THE MD.
[2017-12-13] MEDS ORDERED: ONDANSETRON HCL/PF 4 MG/2 ML VIAL IVP PRN (15:30)
[2017-12-13] MEDS ORDERED: ACETAMINOPHEN 325 MG TABLET PO PRN (15:30)
[2017-12-13] MEDS ORDERED: MAG HYDROX/AL HYDROX/SIMETH 30 ML UDC PO PRN (15:30)
[2017-12-13] MEDS ORDERED: Z GUARD REMEDY 2 OZ OINT TP PRN (15:30)
[2017-12-13] MEDS ORDERED: POTASSIUM CHLORIDE 20 MEQ TAB.PRT.SR PO ONE (15:30)
[2017-12-13] MEDS ORDERED: ZOLPIDEM TARTRATE 5 MG TABLET PO PRN (15:30)
[2017-12-13] MEDS ORDERED: MAGNESIUM HYDROXIDE 30 ML UDC PO PRN (15:30)
[2017-12-13] MEDS ORDERED: HYDROCODONE/APAP 5/325MG 1 EACH TABLET PO PRN (15:30)
[2017-12-13 16:00] VITALS: BP 138/60
[2017-12-13 16:42] VITALS: BP 138/60
[2017-12-13] MEDS: BETHANECHOL CHLORIDE (25 MG) 25 MG TABLET PO SCH ×2 (17:32→21:12)
[2017-12-13] MEDS: hydrALAZINE HCL 25 MG TABLET PO SCH (17:32)
[2017-12-13] MEDS: CARVEDILOL 3.125 MG TABLET PO SCH (17:33)
[2017-12-13] MEDS: LACTOBACILLUS RHAMNOSUS GG 1 EACH CAP.SPRINK PO SCH (17:33)
[2017-12-13] MEDS: IV NS 0.9% 1,000 ML IV PRN (17:35)
[2017-12-13] MEDS: ENOXAPARIN SODIUM 40 MG/0.4 ML DISP.SYRIN SQ SCH (17:35)
[2017-12-13] MEDS: CEFTRIAXONE 1 G in IV D5W 50 ML IV SCH (17:36)
[2017-12-13] MEDS ORDERED: ESTROGENS,CONJUGATED TUBE VG SCH (18:00)
--- NOTE | 2017-12-13 18:25 | NUR ---
MS RN CLOSING NOTES PT REMAINS STABLE SINCE ADMISSION. ALL NEEDS WERE ANTICIPATED FOR AND MET THROUGHOUT SHIFT. ALL DUE MEDS GIVEN. SHE WAS REPOSITIONED AND TURNED Q2HRS PER PROTOCOL. IV REMAINS PATENT AND INTACT. NO ACUTE CHANGES IN MENTATION NOTED. ABX INFUSED ORDERED. WILL ENDORSE TO NIGHTSHIFT NURSE FOR IMER
--- NOTE | 2017-12-13 19:20 | NUR ---
RN OPENING NOTES RECEIVED PT IN BED, ALERT AND ORIENTED X 2, VERBALLY RESPONSIVE, NO SOB NOTED, IN NO ACUTE DISTRESS. ALL PATIENT'S NEEDS ATTENDED TO AT THIS TIME. PLACED CALL LIGHT WITHIN EASY REACH. BED IN LOW POSITION AND LOCKED IN PLACE. IVF INFUSING WELL ORDERED. WILL CONTINUE TO MONITOR PT ON TELE MONITORING WITH SINUS RHYTHM @ 60s.
[2017-12-13 20:00] VITALS: BP 102/48
[2017-12-13] MEDS: ATORVASTATIN 10 MG TABLET PO SCH (21:12)
[2017-12-13] MEDS: LEVETIRACETAM (250 MG) 250 MG TABLET PO SCH (21:12)
[2017-12-14] VITALS: BP 120/52
[2017-12-14 04:00] VITALS: BP 113/54
--- NOTE | 2017-12-14 06:21 | NUR ---
ENVIRONMENTAL ENGINEERING AIDE CLOSING NOTES PATIENT IN BED, ASLEEP BUT EASILY AROUSABLE, ALERT TO SELF, VERBALLY RESPONSIVE AND IS ABLE TO MAKE NEEDS KNOWN. PT NOTED WITH NO C/O DYSURIA AND NO HEMATURIA, USING DIAPER, NOTED WITH GOOD URINE OUTPUT THROUGHOUT THE SHIFT. NO BLADDER DISTENTION NOTED. GOOD PERICARE GIVEN TO PATIENT, TURNED AND REPOSITIONED Q2 HOURS. PT WITH IVF INFUSING WELL ORDERED, ON TELE MONITORING WITH SR @ 60-70s. PLACED CALL LIGHT WITHIN EASY REACH AND LOCKED IN PLACE. WILL ENDORSE TO AM SHIFT NURSE FOR CONTINUITY OF CARE.
[2017-12-14] MEDS: IV NS 0.9% 1,000 ML IV PRN ×2 (06:31→22:23)
[2017-12-14 06:33] LABS: BASOPHILS % (AUTO) 0.4 % (0.0-2.0); EOSINOPHILS % (AUTO) 5.2 % (0.0-6.0); HEMATOCRIT 31 % (33-45); HEMOGLOBIN 10.1 g/dL (11.5-14.8); LYMPHOCYTES # (AUTO) 0.7 /CMM (0.8-4.8); LYMPHOCYTES % (AUTO) 20.4 % (20.0-44.0); MEAN CORPUSCULAR HEMOGLOBIN 32 PG (26.0-33.0); MEAN CORPUSCULAR HGB CONC 33 g/dl (31.0-36.0); MEAN CORPUSCULAR VOLUME 100 fL (82-100); MONOCYTES # (AUTO) 0.2 /CMM (0.1-1.30); MONOCYTES % (AUTO) 6.1 % (2.0-12.0); NEUTROPHILS # (AUTO) 2.4 /CMM (1.8-8.9); NEUTROPHILS % (AUTO) 67.9 % (43.0-81.0); PLATELET COUNT (AUTO) 193 /CMM (150-450); RDW COEFFICIENT OF VARIATION 17.2 (11.5-15.0); RED BLOOD CELL COUNT(AUTO) 3.11 MIL/uL (4.0-5.2); WHITE BLOOD COUNT (AUTO) 3.6 K/uL (4.3-11.0)
[2017-12-14 06:48] LABS: CALCIUM, SERUM 7.8 mg/dL (8.5-10.1); CARBON DIOXIDE 25 mmol/L (21-32); CHLORIDE 110 mmol/L (98-107); CREATININE 1.3 mg/dL (0.6-1.3); GLUCOSE 85 mg/dL (74-106); MAGNESIUM 2.1 mg/dL (1.8-2.4); PHOSPHORUS 2.8 mg/dL (2.5-4.9); POTASSIUM 3.8 mmol/L (3.5-5.1); SODIUM SERUM 141 mmol/L (136-145); UREA NITROGEN, BLOOD 17 mg/dL (7-18)
[2017-12-14 06:52] LABS: CHOLESTEROL 125 mg/dL (<200); HDL CHOLESTEROL 42 mg/dL (40-60); LDL 67 mg/dL (0-99); TRIGLYCERIDES 146 mg/dL (30-150)
[2017-12-14] MEDS: BETHANECHOL CHLORIDE (25 MG) 25 MG TABLET PO SCH ×4 (07:14→22:15)
--- NOTE | 2017-12-14 07:45 | NUR ---
S RN RECEIVED ON BED, AWAKE,ALERT,ORIENTED X 1-2,NOT IN ANY FORM OF DISTRESS, RESPIRATIONS EVEN AND UNLABORED,NO SOB NOTED, LUNGS ARE DIMINISHED,ABDOMEN SOFT,POSITIVE BOWEL SOUNDS, DENIES PAIN AT THIS TIME,ALL NEEDS ATTENDED.
[2017-12-14 08:00] VITALS: BP 135/52
[2017-12-14] MEDS: CALCITRIOL 0.25 MCG CAPSULE PO SCH (09:00)
[2017-12-14] MEDS: CARVEDILOL 3.125 MG TABLET PO SCH ×2 (09:00→17:00)
[2017-12-14] MEDS ORDERED: CLOTRIMAZOLE 1% 15 GM TUBE TP SCH (09:00)
[2017-12-14] MEDS: hydrALAZINE HCL 25 MG TABLET PO SCH ×2 (09:00→17:00)
--- NOTE | 2017-12-14 09:00 | NUR ---
MS RN WAS SEEN BY PT ,MEDS WILL BE GIVEN LATER PER PATIENT'S REQUEST, DIRECTOR OF COUNTERINTELLIGENCE AT BEDSIDE.
--- NOTE | 2017-12-14 09:30 | NUR ---
MS CLOUD BREAKFAST GIVEN, MEDS GIVEN TOLERATED WELL.
--- NOTE | 2017-12-14 09:38 | NUR ---
WOUND CARE CONSULT: PT PRESENTS WITH INCONTINENCE AND SACRAL SCARRING, PRESENT ON ADMISSION. PER CAREGIVER AT BEDSIDE, PT PREVIOUSLY HAD SACRAL WOUND. RECOMMENDATIONS MADE FOR SKIN PROTECTION AND DISCUSSED WITH NURSING STAFF. WILL SEE PRN. BURGESS IN AGREEMENT WITH PLAN OF CARE. CURRENT LUNA SCORE IS 15. Addendum: 12/14/17 at 0939 by JIM LEWIS WNDNU Amended: Links added.
[2017-12-14] MEDS: LEVETIRACETAM (250 MG) 250 MG TABLET PO SCH ×2 (09:41→22:15)
[2017-12-14] MEDS: ASPIRIN 81 MG TAB.CHEW PO SCH (09:42)
[2017-12-14] MEDS: MEMANTINE HCL 5 MG TABLET PO SCH (09:42)
[2017-12-14] MEDS: TAMSULOSIN 0.4 MG CAP.SR.24H PO SCH (09:42)
[2017-12-14] MEDS: ASCORBIC ACID 500 MG TABLET PO SCH (09:42)
[2017-12-14] MEDS: LACTOBACILLUS RHAMNOSUS GG 1 EACH CAP.SPRINK PO SCH ×2 (09:42→17:32)
--- NOTE | 2017-12-14 11:00 | NUR ---
ms rn was seen by dr. mott, awaiting for orders.
[2017-12-14 16:00] VITALS: BP 126/54
[2017-12-14] MEDS: CEFTRIAXONE 1 G in IV D5W 50 ML IV SCH (17:32)
--- NOTE | 2017-12-14 18:42 | NUR ---
ms rn on bed, no distress noted.
[2017-12-14 20:00] VITALS: BP 133/54
[2017-12-14] MEDS: ATORVASTATIN 10 MG TABLET PO SCH (22:15)
[2017-12-14] MEDS: ENOXAPARIN SODIUM 40 MG/0.4 ML DISP.SYRIN SQ SCH (22:16)
--- NOTE | 2017-12-15 07:15 | NUR ---
MS/RN OPENING NOTE PATIENT SI RECEIVED IN BED AND AWAKE. ALERT AND ORIENTED X1. PATIENT IN ROOM AIR AND DENIES SOB. RESPIRATION REGULAR AND UNLABORED. DENIES PAIN. RIGHT WRIST IV PATENT AND IV FLUID INFUSING WITH NO S/S INFILTRATION. BED LOW AND LOCKED. SIDE RAILS UP X3. CALL LIGHT WITHIN REACH. WILL CONTINUE TO MONITOR.
[2017-12-15 08:00] VITALS: BP 139/56
[2017-12-15] MEDS: LACTOBACILLUS RHAMNOSUS GG 1 EACH CAP.SPRINK PO SCH ×2 (10:01→16:38)
[2017-12-15] MEDS: hydrALAZINE HCL 25 MG TABLET PO SCH ×2 (10:01→16:38)
[2017-12-15] MEDS: ASCORBIC ACID 500 MG TABLET PO SCH (10:02)
[2017-12-15] MEDS: TAMSULOSIN 0.4 MG CAP.SR.24H PO SCH (10:02)
[2017-12-15] MEDS: ASPIRIN 81 MG TAB.CHEW PO SCH (10:02)
[2017-12-15] MEDS: CARVEDILOL 3.125 MG TABLET PO SCH ×2 (10:02→16:38)
[2017-12-15] MEDS: LEVETIRACETAM (250 MG) 250 MG TABLET PO SCH ×2 (10:03→20:41)
[2017-12-15] MEDS: CALCITRIOL 0.25 MCG CAPSULE PO SCH (10:03)
[2017-12-15] MEDS: BETHANECHOL CHLORIDE (25 MG) 25 MG TABLET PO SCH ×4 (10:05→21:00)
[2017-12-15] MEDS: MEMANTINE HCL 5 MG TABLET PO SCH (10:05)
[2017-12-15 11:17] VITALS: BP 139/56
[2017-12-15 16:00] VITALS: BP 125/50
[2017-12-15] MEDS: CEFTRIAXONE 1 G in IV D5W 50 ML IV SCH (16:43)
[2017-12-15] MEDS: IV NS 0.9% 1,000 ML IV PRN (16:44)
--- NOTE | 2017-12-15 18:11 | NUR ---
MS/RN CLOSING NOTE PATIENT ALERT AND ORIENTED X2. DENIES SOB. PATIENT IS IN ROOM AIR AND SATURATION IS AT 95%. DENIES PAIN AT THIS TIME. PATIENT IN N APPARENT DISTRESS. RIGHT WRITS G 20 PATENT AND NORMAL SALINE INFUSING AT 75ML/HR AND NO S/S INFILTRATION NOTED. GOOD AND GENTLE SKIN CARE RENDERED. ALL NEEDS ATTENDED AND ANTICIPATED. BED LOW AND LOCKED. SIDE RAILS UP X3. CALL LIGHT WITHIN REACH. WILL ENDORSE TO MEAT SCRUBBER.
--- NOTE | 2017-12-15 19:22 | NUR ---
MS RN OPENING NOTES: RECEIVED PT ON ROOM AIR AND IS ASLEEP AT THIS TIME. BED ALARM ACTIVATED. PT HAS IV ON R WRIST #20G AND IS BEING INFUSED WITH IV NS AT 75ML/HR. CALL LIGHT WITHIN PT'S REACH. BED KEPT IN LOW, LOCKED POSITION, AND SIDE RAILS X 2UP. WILL CONTINUE TO MONITOR PT.
[2017-12-15] MEDS: ENOXAPARIN SODIUM 40 MG/0.4 ML DISP.SYRIN SQ SCH (20:38)
[2017-12-15 20:52] VITALS: BP 122/51
[2017-12-15] MEDS: ATORVASTATIN 10 MG TABLET PO SCH (21:00)
[2017-12-16] MEDS: IV NS 0.9% 1,000 ML IV PRN (05:05)
--- NOTE | 2017-12-16 06:56 | NUR ---
MS RN CLOSING NOTES: ALL NEEDS WERE ATTENDED AND ANTICIPATED FOR. PT ON ROOM AIR AND IS IN SEMI-MARCIAL'S POSITION. NO SOB NOTED. NO S/S OF DISTRESS. PT HAS IV AND IS BEING INFUSED WITH IV NS AT 75ML/HR. PT RESTING IN BED COMFORTABLY. BED ALARM ACTIVATED. CALL LIGHT WITHIN PT'S REACH. BED KEPT IN LOW, LOCKED POSITION, AND SIDE RAILS X 2UP. WILL ENDORSE TO AM NURSE FOR IMER.
--- NOTE | 2017-12-16 07:05 | NUR ---
ms rn initial notes Received patient in bed, asleep, head of bed elevated, no SOB or distress noted, on room iar and tolerated well. Patient is alert and oriented x 1 as endorsed by software developer mid level RN. No facial grimace noted. IV intact and patent with IVF infusing well. Call light with in patient reach, will continue to monitor accordingly.
[2017-12-16 08:00] VITALS: BP 151/74
[2017-12-16] MEDS: ASPIRIN 81 MG TAB.CHEW PO SCH (09:04)
[2017-12-16] MEDS: hydrALAZINE HCL 25 MG TABLET PO SCH (09:04)
[2017-12-16] MEDS: TAMSULOSIN 0.4 MG CAP.SR.24H PO SCH (09:04)
[2017-12-16] MEDS: ASCORBIC ACID 500 MG TABLET PO SCH (09:04)
[2017-12-16] MEDS: LACTOBACILLUS RHAMNOSUS GG 1 EACH CAP.SPRINK PO SCH (09:04)
[2017-12-16] MEDS: MEMANTINE HCL 5 MG TABLET PO SCH (09:04)
[2017-12-16] MEDS: LEVETIRACETAM (250 MG) 250 MG TABLET PO SCH (09:04)
[2017-12-16] MEDS: CARVEDILOL 3.125 MG TABLET PO SCH (09:04)
[2017-12-16] MEDS: BETHANECHOL CHLORIDE (25 MG) 25 MG TABLET PO SCH ×2 (09:07→11:22)
[2017-12-16] MEDS: CALCITRIOL 0.25 MCG CAPSULE PO SCH (09:07)
[2017-12-16] MEDS ORDERED: CEPH-570 PO (12:41)
[2017-12-16 16:00] VITALS: BP 132/73
[2017-12-16] MEDS: CEFTRIAXONE 1 G in IV D5W 50 ML IV SCH (16:10)
--- NOTE | 2017-12-16 16:50 | NUR ---
ms music industry intern notes Discharge instructions given to daughter deloris and able to understand instructions. Signed discharge paper and belonging list, no items missing. Personal wheelchair taken by jeri going to [facility] via ambulance. Pictures taken and filed in the patients chart. PNA vaccine not given due to patient refusal, explained the risk and benefits x 3 and still refused. Flu vaccine is out of season. IV HL discontinued and pressured applied to prevent bleeding. Patient left via gurney accompanied by 2 EMT's and caregiver Jeri, in stable condition. Vital signs checked and recorded. MD and charge nurse made aware.
== END 2017-12-16 16:49 | DRG 682 ==
LOC: ER 12:28 → TELE 14:15 → MED 12-14 15:03
DX: N17.0 Acute kidney failure with tubular necrosis (principal); G93.41 Metabolic encephalopathy; N39.0 Urinary tract infection, site not specified; I13.0 Hypertensive heart and chronic kidney disease with heart failure and stage 1 through stage 4 chronic kidney disease, or unspecified chronic kidney disease; E87.2 Acidosis; C90.00 Multiple myeloma not having achieved remission; G40.909 Epilepsy, unspecified, not intractable, without status epilepticus; I50.9 Heart failure, unspecified; N18.9 Chronic kidney disease, unspecified; M19.90 Unspecified osteoarthritis, unspecified site; F03.90 Unspecified dementia, unspecified severity, without behavioral disturbance, psychotic disturbance, mood disturbance, and anxiety; Z86.73 Personal history of transient ischemic attack (TIA), and cerebral infarction without residual deficits; E87.6 Hypokalemia
CPT/HCPCS: 36415; 70450-TC; 71045-TC; 80048-TC; 80061-TC; 80076-TC; 81000-TC; 83605-TC; 83735-TC; 83880; 84100-TC; 84484-TC; 85025-TC; 85730-TC; 87040-TC; 87081-TC; 87086-TC; 87400; 93307-TC; 97112-TC; 97116-TC; 97530-TC; A4606; J0696; J1650; J1956; J7030; J7060; Z7610

== ENCOUNTER 2018-01-16 14:43 | Inpatient (IN) | payer MEDICARE, BC ==
[~2018-01-16] VITALS: Ht 170.2 cm; Wt 81.6 kg
[~2018-01-16 14:43] MED LIST changes: +CEPH-570 PO; +CLOT15CR63 TP; +LINA290C PO; +POTA-88 PO; -POTA10TA10 PO
--- NOTE | 2018-01-16 15:00 | NUR ---
PT PRESENTS TO ER C/O WEAKNESS X1 DAY AND WITH REPORT OF RECENT UTI PER DAUGHTER, WAS AT [place] LAST WEEK. RESP EVEN UNLABORED. SKIN WARM DRY. ALERT, VERBALLY RESPONSIVE. IN ER BED 08.
[2018-01-16 15:11] LABS: BASOPHILS # (AUTO) 0.1 /CMM (0.0-0.2); BASOPHILS % (AUTO) 1.9 % (0.0-2.0); EOSINOPHILS % (AUTO) 3.4 % (0.0-6.0); HEMATOCRIT 37 % (33-45); HEMOGLOBIN 12.6 g/dL (11.5-14.8); LYMPHOCYTES # (AUTO) 1.1 /CMM (0.8-4.8); LYMPHOCYTES % (AUTO) 15.2 % (20.0-44.0); MEAN CORPUSCULAR HGB CONC 34 g/dl (31.0-36.0); MEAN CORPUSCULAR VOLUME 96 fL (82-100); MONOCYTES # (AUTO) 0.6 /CMM (0.1-1.30); MONOCYTES % (AUTO) 8.2 % (2.0-12.0); NEUTROPHILS # (AUTO) 5.2 /CMM (1.8-8.9); NEUTROPHILS % (AUTO) 71.3 % (43.0-81.0); PLATELET COUNT (AUTO) 146 /CMM (150-450); RDW COEFFICIENT OF VARIATION 15.4 (11.5-15.0); RED BLOOD CELL COUNT(AUTO) 3.82 MIL/uL (4.0-5.2); WHITE BLOOD COUNT (AUTO) 7.2 K/uL (4.3-11.0)
[2018-01-16 15:20] LABS: SODIUM SERUM 141 mmol/L (136-145)
[2018-01-16 15:21] LABS: CALCIUM, SERUM 8.3 mg/dL (8.5-10.1); CARBON DIOXIDE 28 mmol/L (21-32); CHLORIDE 105 mmol/L (98-107); CREATININE 1.6 mg/dL (0.6-1.3); GLUCOSE 124 mg/dL (74-106); POTASSIUM 3.8 mmol/L (3.5-5.1); UREA NITROGEN, BLOOD 29 mg/dL (7-18)
[2018-01-16 15:25] LABS: INR 0.95 (0.85-1.15)
[2018-01-16 15:26] LABS: ALANINE AMINOTRANSFERASE 39 U/L (12-78); ALBUMIN 2.9 g/dL (3.4-5.0); ALKALINE PHOSPHATASE 62 U/L (46-116); ASPARTATE AMINOTRANSFERASE 24 U/L (15-37); BILIRUBIN,DIRECT 0.1 mg/dL (0.0-0.2); BILIRUBIN,TOTAL 0.5 mg/dL (0.2-1.0); TOTAL PROTEIN, SERUM 6.5 g/dL (6.4-8.2)
[2018-01-16 15:28] LABS: TROPONIN I < 0.017 ng/mL (0.00-0.056)
[2018-01-16] MEDS ORDERED: IV NS 0.9% 1,000 ML BAG IV ONE (15:30)
--- NOTE | 2018-01-16 16:00 | NUR ---
IN AND OUT CATH PERFORMED FOR NO URINE
[2018-01-16 16:02] LABS: APPEARANCE,URINE Slightly Cloudy (CLEAR); BILIRUBIN,URINE Negative (NEGATIVE); BLOOD, URINE Negative Ery/uL (NEGATIVE); COLOR,URINE Yellow (YELLOW); KETONES,URINE Negative (NEGATIVE); LEUKOCYTE ESTERASE ,URINE Trace (NEGATIVE); NITRITE, URINE Positive (NEGATIVE); PROTEIN,URINE Negative (NEGATIVE); UGLUCOSE Negative (NEGATIVE); UROBILINOGEN,URINE 0.2 EU/dL (0.2)
[2018-01-16 16:18] LABS: EOSINOPHILS % (MANUAL) 1 % (0-4); LYMPHOCYTES % (MANUAL) 16 % (16-48); MONOCYTES % (MANUAL) 7 % (0-11.0); NEUTROPHILS % (MANUAL) 76 (42-76)
[2018-01-16 16:27] LABS: BACTERIA,URINE Many /HPF (None Seen); SQUAMOUS EPITHELIAL CELL,UR Few /HPF (None Seen)
[2018-01-16 16:28] LABS: RBC,URINE 0-2 /HPF (0-2)
[2018-01-16] MEDS ORDERED: CEFTRIAXONE 1GM BAG (ER ONLY) 50 ML IV ONE (16:30)
--- NOTE | 2018-01-16 16:49 | NUR ---
[id number] MS Addendum: 01/16/18 at 1651 by HFOX CORRECTION: [id number]
[2018-01-16] MEDS ORDERED: BISACODYL SUPP (10 MG) 10 MG/SUPP.RECT SUPP.RECT RC PRN (17:00)
[2018-01-16] MEDS ORDERED: MAG HYDROX/AL HYDROX/SIMETH 30 ML UDC PO PRN (17:00)
[2018-01-16] MEDS ORDERED: Medication Not On Formulary EA (Omega-3 Fatty Acids/Fish Oil (Fish Oil 1,000 Mg Capsule) PO SCH (17:00)
[2018-01-16] MEDS ORDERED: ONDANSETRON HCL/PF 4 MG/2 ML VIAL IVP PRN (17:00)
[2018-01-16] MEDS ORDERED: Z GUARD REMEDY 2 OZ OINT TP PRN (17:00)
[2018-01-16] MEDS ORDERED: HYDROCODONE/APAP 5/325MG 1 EACH TABLET PO PRN (17:00)
[2018-01-16] MEDS ORDERED: HYDROCODONE/APAP 10/325MG 1 EA TABLET PO PRN (17:00)
[2018-01-16] MEDS ORDERED: MAGNESIUM HYDROXIDE 30 ML UDC PO PRN (17:00)
[2018-01-16] MEDS ORDERED: ACETAMINOPHEN 325 MG TABLET PO PRN (17:00)
--- NOTE | 2018-01-16 17:32 | NUR ---
PT TRANSPORTED TO [facility] IN STABLE CONDITION VIA ACLS PROTOCOL. REPORT GIVEN TO ZACHARY CLOUD. NAD NOTED. VSS.
[2018-01-16 17:45] VITALS: BP 127/59
[2018-01-16] MEDS: PREMARIN TP SCH (18:00)
--- NOTE | 2018-01-16 18:00 | NUR ---
ms rn admitted an 87 year old female, awake,oriented x1,not in any form of distress, respirations even and unlabored,no sob noted, came in w/ dx of uti, health care liaison at bedside, daughter at bedside as well, no distress noted will continue to monitor.
[2018-01-16] MEDS ORDERED: LACTULOSE 10 G/15 ML UDC (PYXIS) PO PRN (18:30)
--- NOTE | 2018-01-16 18:55 | NUR ---
ms rn all needs attended, will endorsed to fur tailor for mary ellen.
[2018-01-16] MEDS: CEPHALEXIN MONOHYDRATE 250 MG CAPSULE PO SCH (19:17)
[2018-01-16] MEDS: BETHANECHOL CHLORIDE (25 MG) 25 MG TABLET PO SCH (19:17)
[2018-01-16] MEDS: LACTOBACILLUS RHAMNOSUS GG 1 EACH CAP.SPRINK PO SCH (19:17)
[2018-01-16] MEDS: hydrALAZINE HCL 25 MG TABLET PO SCH (19:18)
[2018-01-16] MEDS: IV NS 0.9% 1,000 ML IV PRN (19:27)
[2018-01-16] MEDS: ENOXAPARIN SODIUM 30 MG/0.3 ML DISP.SYRIN SQ SCH (19:30)
--- NOTE | 2018-01-16 19:30 | NUR ---
BOOKKEEPING ASSISTANT OPENING NOTE Patient was seen in bed in high-Simon's position dozing intermittently, but opens eyes to name; she is AOx1. Patient is breathing on RA with no SOB, and currently shows no signs of acute distress. NS at 75ml/hr is running through the IV in the right wrist with no signs of leaking or infiltration. Bed is low/locked, two side rails up. Daughter Magda is at the bedside and discussed with me her mother's allergy to diapers, her need for nectar-thick liquids only with no straws, and keeping the HOB elevated. The daughter also mentioned that her mother is straight-cathed q6h at the [facility] d/t urinary retention. I told the daughter I would check MD orders for urinary cath and do bladder scans; I addressed all questions and concerns. The patient appears comfortable in bed. Will continue to monitor.
[2018-01-16 20:00] VITALS: BP 113/60
[2018-01-16 20:10] VITALS: BP 113/60
[2018-01-16] MEDS: CARVEDILOL 3.125 MG TABLET PO SCH (20:20)
[2018-01-16] MEDS: LEVETIRACETAM (250 MG) 250 MG TABLET PO SCH (20:20)
--- NOTE | 2018-01-16 20:30 | NUR ---
TETRYL WRINGER OPERATOR NOTE - Wet pad, no straight-cath The patient's pad was found to be very saturated with urine; pad and linens were changed appropriately. No straight cath needed at this time, based on the large of amount of urine found on pad and linens. I will bladder scan prior to the next scheduled urinary cath; per Charge Nurse Melissa, only cath if bladder scan shows >250-300ml urine. Will continue to monitor urine output.
[2018-01-17] VITALS: BP 118/57
--- NOTE | 2018-01-17 00:15 | NUR ---
HOUSEHOLD APPLIANCE MECHANIC NOTE - Bladder scan, Straight cath Patient's pad was found to be saturated with urine, and patient was changed/cleaned appropriately. Because of order for straight cath q6h, bladder scanner was used to assess the degree of urinary retention. Using the bladder scanner, patient had an estimated 347ml or urine. Straight cath ("in and out") was performed using sterile technique per MD orders. 400ml of clear, yellow urine was emptied. Patient tolerated well. Will continue to monitor urine output.
[2018-01-17 04:00] VITALS: BP 103/49
[2018-01-17 05:05] VITALS: BP 103/49
--- NOTE | 2018-01-17 06:00 | NUR ---
STEAM SERVICE INSPECTOR NOTE - Straight Cath Per orders, patient was straight cathed using sterile technique. Output of 225ml of clear, yellow urine.
--- NOTE | 2018-01-17 07:06 | NUR ---
DRIVER LICENSE TECHNICIAN CLOSING NOTE Patient slept well overnight without complications and remains in stable condition with no signs of acute distress. Patient care endorsed to day shift nurse.
--- NOTE | 2018-01-17 07:26 | NUR ---
REFRACTORY MANAGER OPENING NOTE RECEIVED PATIENT IN BED. SLEEPING EASILY AROUSED WITH VERBAL STIMULI. ORIENTED X1. ON ROOM AIR, TOLERATING WELL. IN NO APPARENT DISTRESS OR DISCOMFORT AT THIS TIME. RESPIRATIONS EVEN AND UNLABORED. PATIENT WITH RIGHT WRIST 20G. IVC WITH FLUIDS RUNNING AT 75ML/HR. PATENT AND INTACT. PATIENT KEPT CLEAN AND COMFORTABLE. ALL NEEDS ATTENDED. SAFETY MEASURES IN PLACE, BED IN LOW LOCKED POSITION, SIDE RAILS UP X2, CALL LIGHT WITHIN EASY REACH. WILL CONTINUE TO MONITOR.
[2018-01-17 07:35] LABS: BASOPHILS % (AUTO) 0.1 % (0.0-2.0); EOSINOPHILS % (AUTO) 5.2 % (0.0-6.0); HEMATOCRIT 31 % (33-45); HEMOGLOBIN 10.2 g/dL (11.5-14.8); LYMPHOCYTES % (AUTO) 22.9 % (20.0-44.0); MEAN CORPUSCULAR HGB CONC 33 g/dl (31.0-36.0); MEAN CORPUSCULAR VOLUME 98 fL (82-100); MONOCYTES # (AUTO) 0.5 /CMM (0.1-1.30); MONOCYTES % (AUTO) 11.1 % (2.0-12.0); NEUTROPHILS # (AUTO) 2.5 /CMM (1.8-8.9); NEUTROPHILS % (AUTO) 60.7 % (43.0-81.0); PLATELET COUNT (AUTO) 110 /CMM (150-450); RDW COEFFICIENT OF VARIATION 16.7 (11.5-15.0); RED BLOOD CELL COUNT(AUTO) 3.13 MIL/uL (4.0-5.2); WHITE BLOOD COUNT (AUTO) 4.2 K/uL (4.3-11.0)
[2018-01-17 07:40] LABS: CALCIUM, SERUM 7.6 mg/dL (8.5-10.1); CARBON DIOXIDE 25 mmol/L (21-32); CHLORIDE 109 mmol/L (98-107); CREATININE 1.2 mg/dL (0.6-1.3); GLUCOSE 83 mg/dL (74-106); MAGNESIUM 1.5 mg/dL (1.8-2.4); PHOSPHORUS 3.1 mg/dL (2.5-4.9); POTASSIUM 3.5 mmol/L (3.5-5.1); SODIUM SERUM 144 mmol/L (136-145); UREA NITROGEN, BLOOD 23 mg/dL (7-18)
[2018-01-17 07:49] LABS: CHOLESTEROL 160 mg/dL (<200); HDL CHOLESTEROL 45 mg/dL (40-60); LDL 83 mg/dL (0-99); THYROID STIMULATING HORMONE 0.635 uIU/mL (0.358-3.74); TRIGLYCERIDES 276 mg/dL (30-150)
[2018-01-17 08:00] VITALS: BP 126/57
[2018-01-17] MEDS: hydrALAZINE HCL 25 MG TABLET PO SCH ×2 (09:00→17:00)
[2018-01-17] MEDS ORDERED: Medication Not On Formulary EA (Protein Supplement (Promod) 30 ML) PO SCH (09:00)
[2018-01-17] MEDS: LEVETIRACETAM (250 MG) 250 MG TABLET PO SCH ×2 (09:15→20:58)
[2018-01-17] MEDS: TAMSULOSIN 0.4 MG CAP.SR.24H PO SCH (09:15)
[2018-01-17] MEDS: MULTIVIT, IRON, MIN NO. 8, FA 1 TAB PO SCH (09:15)
[2018-01-17] MEDS: CYANOCOBALAMIN 500 MCG TABLET PO SCH (09:15)
[2018-01-17] MEDS: CARVEDILOL 3.125 MG TABLET PO SCH ×2 (09:15→20:58)
[2018-01-17] MEDS: LACTOBACILLUS RHAMNOSUS GG 1 EACH CAP.SPRINK PO SCH ×2 (09:16→17:57)
[2018-01-17] MEDS: PANTOPRAZOLE 40 MG TABLET.DR PO SCH (09:16)
[2018-01-17] MEDS: CEPHALEXIN MONOHYDRATE 250 MG CAPSULE PO SCH ×3 (09:16→17:57)
[2018-01-17] MEDS: CHOLECALCIFEROL 1,000 UNIT TABLET (VIT D3) PO SCH (09:16)
[2018-01-17] MEDS: ASPIRIN 81 MG TAB.CHEW PO SCH (09:17)
[2018-01-17] MEDS: ASCORBIC ACID 500 MG TABLET PO SCH (09:17)
[2018-01-17] MEDS: BETHANECHOL CHLORIDE (25 MG) 25 MG TABLET PO SCH ×3 (09:17→17:58)
[2018-01-17] MEDS: MEMANTINE HCL 5 MG TABLET PO SCH ×2 (09:17→17:58)
[2018-01-17] MEDS: CALCITRIOL 0.25 MCG CAPSULE PO SCH (09:28)
[2018-01-17] MEDS: Magnesium 1GM/D5W 100ML PREMIX 100 ML IV SCH ×2 (10:31→11:49)
--- NOTE | 2018-01-17 12:00 | NUR ---
MS RN NOTE PER PHYSICIAN ORDERS PATIENT WAS STRAIGHT CATHETERIZED USING STERILE TECHNIQUES. OUTPUT OF 300CC CLEAR YELLOW URINE.
[2018-01-17 16:00] VITALS: BP 100/40
[2018-01-17] MEDS: PREMARIN TP SCH (17:59)
--- NOTE | 2018-01-17 18:00 | NUR ---
MS RN NOTE PER PHYSICIAN ORDERS PATIENT WAS STRAIGHT CATHETERIZED USING STERILE TECHNIQUES. OUTPUT OF 450CC CLEAR YELLOW URINE.
--- NOTE | 2018-01-17 18:53 | NUR ---
MS RN CLOSING NOTE PATIENT IN BED. SLEEPING EASILY AROUSED WITH VERBAL STIMULI. ORIENTED X1. ON ROOM AIR, TOLERATING WELL. IN NO APPARENT DISTRESS OR DISCOMFORT AT THIS TIME. RESPIRATIONS EVEN AND UNLABORED. PATIENT WITH RIGHT WRIST 20G IVC WITH FLUIDS RUNNING AT 75ML/HR, PATENT AND INTACT. PATIENT KEPT CLEAN AND COMFORTABLE. ALL NEEDS ATTENDED. ALL DUE MEDICATIONS GIVEN, ORDERS RENDERED. TURNED AND REPOSITIONED PER PROTOCOL. SAFETY MEASURES IN PLACE, BED IN LOW LOCKED POSITION, SIDE RAILS UP X2, CALL LIGHT WITHIN EASY REACH. WILL ENDORSE TO PM NURSE FOR IMER.
--- NOTE | 2018-01-17 19:15 | NUR ---
MS RN NOTES RECEIVED ON BED SLEEPING,AROUSABLE TO VERBAL STIMULI.BREATHING REGULAR,NOT IN ANY FORM OF DISTRESS.WITH IVF NS AT 75ML/HR RATE INFUSING VIA IV PUMP ON RIGHT WRIST,SITE PATENT.FALL PRECAUTION OBSERVED,BED ON LOWEST POSITION AND LOCK.BED ALARM TRIGGERED.REPOSITION PER PROTOCOL CALL LIGHT IN REACH,NEEDS ANTICIPATED.
[2018-01-17 20:00] VITALS: BP 117/56
[2018-01-17] MEDS: ENOXAPARIN SODIUM 30 MG/0.3 ML DISP.SYRIN SQ SCH (20:56)
--- NOTE | 2018-01-17 21:00 | NUR ---
MS RN NOTES DUE PO MEDS GIVEN WITH APPLE SAUCE FOLLOWED WITH THICKENED WATER,TOLERATED WELL.
[2018-01-17] MEDS: ATORVASTATIN 10 MG TABLET PO SCH (22:37)
[2018-01-18] MEDS: IV NS 0.9% 1,000 ML IV PRN ×2 (01:15→16:13)
--- NOTE | 2018-01-18 01:30 | NUR ---
MS RN NOTES STRAIGHT CATH DONE,OBTAINED 500ML AND SANITARY PADS SOAKING WET.
--- NOTE | 2018-01-18 06:59 | NUR ---
MS RN NOTES STRAIGHT CATH ASEPTICALLY,OBTAINED 700ML OF CLEAR YELLOW URINE
--- NOTE | 2018-01-18 06:59 | NUR ---
MS RN NOTES FAIRLY RESTED AT NIGHT.DENIES PAIN,AFEBRILE.IVF IN PROGRESS.CALL LIGHT IN REACH,NEEDS ATTENDED.WILL ENDORSE TO JANEL RN FOR IMER.
--- NOTE | 2018-01-18 07:15 | NUR ---
MS/RN OPENING NOTE PATIENT ALERT AND ORIENTED X1. DENIES SOB RESPIRATION REGULAR AND UNLABORED. DENIES PAIN. PATIENT IN NO APPARENT DISTRESS. RIGHT WRIST G 20 PATENT AND IV FLUID INFUSING WITH NO S/S INFILTRATION NOTED. BED LOW AND LOCKED. SIDE RAILS UP X3. CALL LIGHT WITHIN REACH. WILL CONTINUE TO MONITOR.
[2018-01-18 07:38] LABS: BASOPHILS % (AUTO) 0.4 % (0.0-2.0); EOSINOPHILS % (AUTO) 6.6 % (0.0-6.0); HEMATOCRIT 30 % (33-45); LYMPHOCYTES # (AUTO) 0.9 /CMM (0.8-4.8); LYMPHOCYTES % (AUTO) 21.5 % (20.0-44.0); MEAN CORPUSCULAR HGB CONC 33 g/dl (31.0-36.0); MEAN CORPUSCULAR VOLUME 98 fL (82-100); MONOCYTES # (AUTO) 0.5 /CMM (0.1-1.30); MONOCYTES % (AUTO) 11.8 % (2.0-12.0); NEUTROPHILS # (AUTO) 2.5 /CMM (1.8-8.9); NEUTROPHILS % (AUTO) 59.7 % (43.0-81.0); PLATELET COUNT (AUTO) 132 /CMM (150-450); RDW COEFFICIENT OF VARIATION 16.5 (11.5-15.0); RED BLOOD CELL COUNT(AUTO) 3.09 MIL/uL (4.0-5.2); WHITE BLOOD COUNT (AUTO) 4.1 K/uL (4.3-11.0)
[2018-01-18 08:09] LABS: CALCIUM, SERUM 8.1 mg/dL (8.5-10.1); CARBON DIOXIDE 26 mmol/L (21-32); CHLORIDE 107 mmol/L (98-107); CREATININE 1.3 mg/dL (0.6-1.3); GLUCOSE 83 mg/dL (74-106); MAGNESIUM 1.9 mg/dL (1.8-2.4); PHOSPHORUS 2.9 mg/dL (2.5-4.9); POTASSIUM 3.6 mmol/L (3.5-5.1); SODIUM SERUM 141 mmol/L (136-145); UREA NITROGEN, BLOOD 16 mg/dL (7-18)
[2018-01-18] MEDS: MULTIVIT, IRON, MIN NO. 8, FA 1 TAB PO SCH (08:19)
[2018-01-18] MEDS: ASCORBIC ACID 500 MG TABLET PO SCH (08:19)
[2018-01-18] MEDS: LACTOBACILLUS RHAMNOSUS GG 1 EACH CAP.SPRINK PO SCH ×2 (08:20→16:40)
[2018-01-18] MEDS: hydrALAZINE HCL 25 MG TABLET PO SCH ×2 (08:20→17:00)
[2018-01-18] MEDS: CHOLECALCIFEROL 1,000 UNIT TABLET (VIT D3) PO SCH (08:20)
[2018-01-18] MEDS: CEPHALEXIN MONOHYDRATE 250 MG CAPSULE PO SCH ×3 (08:20→16:40)
[2018-01-18] MEDS: ASPIRIN 81 MG TAB.CHEW PO SCH (08:20)
[2018-01-18] MEDS: BETHANECHOL CHLORIDE (25 MG) 25 MG TABLET PO SCH ×3 (08:20→16:39)
[2018-01-18] MEDS: CARVEDILOL 3.125 MG TABLET PO SCH ×2 (08:21→20:54)
[2018-01-18] MEDS: LEVETIRACETAM (250 MG) 250 MG TABLET PO SCH ×2 (08:21→21:00)
[2018-01-18] MEDS: PANTOPRAZOLE 40 MG TABLET.DR PO SCH (08:21)
[2018-01-18] MEDS: CYANOCOBALAMIN 500 MCG TABLET PO SCH (08:21)
[2018-01-18] MEDS: TAMSULOSIN 0.4 MG CAP.SR.24H PO SCH (08:27)
[2018-01-18] MEDS: MEMANTINE HCL 5 MG TABLET PO SCH ×2 (08:27→16:40)
[2018-01-18] MEDS: CALCITRIOL 0.25 MCG CAPSULE PO SCH (08:28)
[2018-01-18] MEDS ORDERED: NA PHOS,M-B/NA PHOS,DI-BA 1 EA ENEMA RC SCH (09:00)
[2018-01-18 09:47] VITALS: BP 135/57
--- NOTE | 2018-01-18 13:00 | NUR ---
MS/RN NOTE IN AND OUT CATH DONE AND 500 ML URINE CLEAR AND YELLOW COLOR IS DRAINED.
[2018-01-18 14:00] VITALS: BP 118/64
[2018-01-18 16:00] VITALS: BP 107/57
--- NOTE | 2018-01-18 18:30 | NUR ---
MS/RN NOTE IN AND OUT CATH DONE AND 500 ML CLEAR AND YELLOW COLOR URINE IS DRAINED.
--- NOTE | 2018-01-18 18:47 | NUR ---
MS/RN CLOSING NOTE PATIENT ALERT AND ORIENTED X1. REDIRECTION AND REORIENTATION PROVIDED NEEDED. DENIES SOB. RESPIRATION REGULAR AND UNLABORED. DENIES PAIN. PATIENT IN NO APPARENT DISTRESS. RIGHT WRIST G 20 PATENT AND NORMAL SALINE INFUSING AT 75ML/RH AND NO S/S INFILTRATION NOTED. URINE OUTPUT DURING THE SHIFT WAS 1000 ML. GOOD AND GENTLE SKIN CARE RENDERED. KEPT CLEAN AND COMFORTABLE. BED LOW AND LOCKED. SIDE RAILS UP X3. BED ALARM ON. CALL LIGHT WITHIN REACH. WILL ENDORSE TO COORDINATOR HOTELS.
--- NOTE | 2018-01-18 19:31 | NUR ---
MS RN NOTES RECEIVE PT IN BED AWAKE A/O X 1, NOT IN DISTRESS, IN STABLE CONDITION, SAFETY MEASURES IN PLACE WILL CONTINUE TO MONITOR.
[2018-01-18 20:00] VITALS: BP 138/67
[2018-01-18] MEDS: ENOXAPARIN SODIUM 30 MG/0.3 ML DISP.SYRIN SQ SCH (21:05)
[2018-01-18] MEDS: ATORVASTATIN 10 MG TABLET PO SCH (21:06)
--- NOTE | 2018-01-19 | NUR ---
MS RN NOTES PROCEDURE STRAIGHT CATH DONE ASEPTIC TECHNIQUE USED, OBTAINED 500ML OF CLEAR YELLOW URINE
[2018-01-19] MEDS: IV NS 0.9% 1,000 ML IV PRN (05:42)
--- NOTE | 2018-01-19 05:57 | NUR ---
PROCEDURE STRAIGHT CATH DONE ASEPTIC TECHNIQUE USED OBTAINED 800 ML CLEAR YELLOW URINE
--- NOTE | 2018-01-19 06:18 | NUR ---
MS RN CLOSING NOTES ASLEEP AND EASILY AWAKEN, STABLE, TOLERATING ROOM AIR 98% NOT IN DISTRESS. RESPIRATION EVEN AND UNLABORED. KEPT CLEAN AND DRY AND COMFORTABLE, ALL NURSING CARE RENDERED. NEEDS ATTENDED AND ANTICIPATED. GOOD SKIN CARE. REPOSITIONED EVERY 2 HOURS. ON LOW BED AT ALL TIMES TO ENSURE SAFETY. SAFE HAZARD FREE ENVIRONMENT PROVIDED. CALL LIGHT WITHIN EASY TO REACH. WILL ENDORSE NEXT SHIFT CONTINUITY OF CARE.
[2018-01-19 07:33] LABS: ALANINE AMINOTRANSFERASE 21 U/L (12-78); ALBUMIN 2.2 g/dL (3.4-5.0); ALKALINE PHOSPHATASE 44 U/L (46-116); ASPARTATE AMINOTRANSFERASE 20 U/L (15-37); BILIRUBIN,TOTAL 0.7 mg/dL (0.2-1.0); CALCIUM, SERUM 8.3 mg/dL (8.5-10.1); CARBON DIOXIDE 22 mmol/L (21-32); CHLORIDE 110 mmol/L (98-107); CREATININE 1.2 mg/dL (0.6-1.3); GLUCOSE 87 mg/dL (74-106); MAGNESIUM 1.6 mg/dL (1.8-2.4); POTASSIUM 3.7 mmol/L (3.5-5.1); SODIUM SERUM 141 mmol/L (136-145); TOTAL PROTEIN, SERUM 5.1 g/dL (6.4-8.2); UREA NITROGEN, BLOOD 14 mg/dL (7-18)
--- NOTE | 2018-01-19 08:07 | NUR ---
MS RN OPENING NOTES RECEIVED PT FROM NIGHTSHIFT NURSE IN STABLE CONDITION. PT IS A.O X2. NO SOB OR ACUTE SIGNS OF DISTRESS NOTED, BREATHING IS EVEN AND UNLABORED. PT ON RA AND SATING WELL. SHE DENIES ANY PAIN AT THIS TIME. IV TO RIGHT WRIST NOTED TO BE PATENT AND INTACT. NO REDNESS OR SIGNS OF INFILTRATION NOTED. PT TOLERATING NS INFUSION WELL. BED IN LOW LOCKED POSITION, SIDE RAILS UP X3, CALL LIGHT WITHIN REACH, BED ALARM ON FOR ADDED SAFETY. WILL CONTINUE TO MONITOR
[2018-01-19 08:30] VITALS: BP 127/68
[2018-01-19] MEDS: CALCITRIOL 0.25 MCG CAPSULE PO SCH (08:38)
[2018-01-19] MEDS: PANTOPRAZOLE 40 MG TABLET.DR PO SCH (08:39)
[2018-01-19] MEDS: ASPIRIN 81 MG TAB.CHEW PO SCH (08:39)
[2018-01-19] MEDS: CHOLECALCIFEROL 1,000 UNIT TABLET (VIT D3) PO SCH (08:39)
[2018-01-19] MEDS: MULTIVIT, IRON, MIN NO. 8, FA 1 TAB PO SCH (08:40)
[2018-01-19] MEDS: ASCORBIC ACID 500 MG TABLET PO SCH (08:40)
[2018-01-19] MEDS: LEVETIRACETAM (250 MG) 250 MG TABLET PO SCH (08:41)
[2018-01-19] MEDS: CEPHALEXIN MONOHYDRATE 250 MG CAPSULE PO SCH ×2 (08:41→13:18)
[2018-01-19] MEDS: TAMSULOSIN 0.4 MG CAP.SR.24H PO SCH (08:41)
[2018-01-19] MEDS: LACTOBACILLUS RHAMNOSUS GG 1 EACH CAP.SPRINK PO SCH (08:41)
[2018-01-19] MEDS: CYANOCOBALAMIN 500 MCG TABLET PO SCH (08:41)
[2018-01-19] MEDS: BETHANECHOL CHLORIDE (25 MG) 25 MG TABLET PO SCH ×2 (08:42→13:18)
[2018-01-19] MEDS: MEMANTINE HCL 5 MG TABLET PO SCH (08:42)
[2018-01-19 08:44] VITALS: BP 127/68
[2018-01-19] MEDS: hydrALAZINE HCL 25 MG TABLET PO SCH (08:44)
[2018-01-19] MEDS: CARVEDILOL 3.125 MG TABLET PO SCH (08:44)
[2018-01-19] MEDS ORDERED: MAGNESIUM OXIDE 400 MG TABLET PO ONE (09:30)
--- NOTE | 2018-01-19 12:53 | NUR ---
MS RN NOTES: STRAIGHT CATH PT WAS STRAIGHT CATH USING ASEPTIC AND STERILE TECHNIQUES. 400CC OF YELLOW URINE REMOVED
--- NOTE | 2018-01-19 15:42 | NUR ---
MS ACID PLANT HELPER NOTES PT WAS DISCHARGED FROM FACILITY IN STABLE CONDITION. ALL NEEDS WERE MET DURING SHIFT AND ORDERS CARRIED OUT ACCORDINGLY. ALL DUE MEDS GIVEN. PRN CARE RENDERED. IV WAS SUCCESSFULLY REMOVED WITH CATHETER TIP INTACT. VITALS STABLE PRIOR TO D/C. REPORT CALLED AND GIVEN TO ILIANA THE RECEIVING RN AT [facility]. PT PROVIDED WITH COPIES OF D/C INSTRUCTIONS ALONG WITH WRITTEN PRESCRIPTIONS. ALL BELONGINGS ACCOUNTED FOR PRIOR TO D/C. SHE WAS SAFELY TRANSFERRED FROM [facility] TO [facility] AND LEFT VIA AMBULANCE TRANSPORT.
[2018-01-19] MEDS ORDERED: PREMARIN TP SCH (18:00)
[2018-01-22] MEDS ORDERED: CEPH-570 PO (13:56)
[2018-01-27] MEDS ORDERED: LEVO500T75 PO (15:47)
[2018-02-01] MEDS ORDERED: MEGE400O5 PO (15:35)
[2018-02-01] MEDS ORDERED: LENA5CAP PO (15:35)
[2018-02-01] MEDS ORDERED: ACID1TAB12 PO (15:35)
[2018-02-15] MEDS ORDERED: CYANOCOBALAMIN 1,000 MCG/ML VIAL IM SCH (09:00)
== END 2018-01-19 15:30 | DRG 682 ==
LOC: ER 14:46 → TELE 17:18 → MED 01-17 08:16
PROVIDERS: ADMIT Registered Nurse; ATTEND Registered Nurse
DX: N17.9 Acute kidney failure, unspecified (principal); G92 Toxic encephalopathy; N39.0 Urinary tract infection, site not specified; C90.00 Multiple myeloma not having achieved remission; I13.0 Hypertensive heart and chronic kidney disease with heart failure and stage 1 through stage 4 chronic kidney disease, or unspecified chronic kidney disease; D61.818 Other pancytopenia; E44.1 Mild protein-calorie malnutrition; E86.0 Dehydration; I50.9 Heart failure, unspecified; F03.90 Unspecified dementia, unspecified severity, without behavioral disturbance, psychotic disturbance, mood disturbance, and anxiety; G40.909 Epilepsy, unspecified, not intractable, without status epilepticus; N18.9 Chronic kidney disease, unspecified; Z88.8 Allergy status to other drugs, medicaments and biological substances; Z88.3 Allergy status to other anti-infective agents; Z91.040 Latex allergy status; Z79.82 Long term (current) use of aspirin; Z79.899 Other long term (current) drug therapy; B96.89 Other specified bacterial agents as the cause of diseases classified elsewhere; B96.20 Unspecified Escherichia coli [E. coli] as the cause of diseases classified elsewhere; Z87.898 Personal history of other specified conditions; E66.9 Obesity, unspecified; Z68.28 Body mass index [BMI] 28.0-28.9, adult; Z87.440 Personal history of urinary (tract) infections
CPT/HCPCS: 36415; 71045-TC; 80048-TC; 80053-TC; 80061-TC; 80076-TC; 81000-TC; 83605-TC; 83735-TC; 84100-TC; 84443-TC; 84484-TC; 85025-TC; 85730-TC; 87040-TC; 87081-TC; 87086-TC; 87186-TC; A4606; G0378; J0696; J1650; J3475; J7030; Z7610

== ENCOUNTER 2018-06-07 12:13 | Inpatient (IN) | payer MEDICARE, BC ==
[~2018-06-07] VITALS: Ht 167.6 cm; Wt 82.1 kg
[~2018-06-07 12:13] MED LIST changes: +ACID1TAB12 PO; -CALC-494 PO; -CEPH-570 PO; -CLOT15CR63 TP; -LACT1CAP69 PO; -LINA290C PO; -MEMA28CA PO; -MULT-213 PO; -NA P133E RC; -OMEG1CAP PO; -OMEP20CA10 PO; -POTA-88 PO; -PROT946L PO; -TAMS0.4C34 PO
--- NOTE | 2018-06-07 12:25 | NUR ---
DR CABAN AT BEDSIDE FOR EVAL.
[2018-06-07] MEDS ORDERED: IV NS 0.9% 1,000 ML BAG IV ONE (12:30)
--- NOTE | 2018-06-07 12:33 | NUR ---
1227 CODE STROKE ACTIVATED. CALLED TELESTROKE AT 1230. DR HAY WILL BE CALLING BACK
[2018-06-07] MEDS ORDERED: MEMA28CA PO (12:44)
[2018-06-07] MEDS ORDERED: POTA10TA15 PO (12:44)
[2018-06-07] MEDS ORDERED: DOCU-141 PO (12:44)
[2018-06-07] MEDS ORDERED: TAMS-12 PO (12:44)
[2018-06-07] MEDS ORDERED: OMEP20CA10 PO (12:44)
[2018-06-07] MEDS ORDERED: OMEG1CAP PO (12:44)
[2018-06-07] MEDS ORDERED: MEGE400O4 PO (12:44)
[2018-06-07] MEDS ORDERED: MIRT15TA7 PO (12:44)
[2018-06-07] MEDS ORDERED: ASPI-1152 PO (12:44)
[2018-06-07] MEDS ORDERED: POLY17PO4 PO (12:44)
[2018-06-07] MEDS ORDERED: DRON2.5C PO (12:44)
[2018-06-07] MEDS ORDERED: LACT-58 PO (12:44)
[2018-06-07] MEDS ORDERED: MULT-447 PO (12:44)
[2018-06-07 12:46] LABS: BASOPHILS # (AUTO) 0.1 /CMM (0.0-0.2); EOSINOPHILS % (AUTO) 1.1 % (0.0-6.0); HEMATOCRIT 35 % (33-45); HEMOGLOBIN 11.7 g/dL (11.5-14.8); LYMPHOCYTES % (AUTO) 12.1 % (20.0-44.0); MEAN CORPUSCULAR HGB CONC 34 g/dl (31.0-36.0); MEAN CORPUSCULAR VOLUME 103 fL (82-100); MONOCYTES # (AUTO) 1.1 /CMM (0.1-1.30); MONOCYTES % (AUTO) 13.8 % (2.0-12.0); NEUTROPHILS # (AUTO) 5.9 /CMM (1.8-8.9); PLATELET COUNT (AUTO) 254 /CMM (150-450); RED BLOOD CELL COUNT(AUTO) 3.39 MIL/uL (4.0-5.2); WHITE BLOOD COUNT (AUTO) 8.2 K/uL (4.3-11.0)
[2018-06-07 12:54] LABS: CALCIUM, SERUM 8.5 mg/dL (8.5-10.1); CARBON DIOXIDE 21 mmol/L (21-32); CHLORIDE 107 mmol/L (98-107); CREATININE 1.5 mg/dL (0.6-1.3); GLUCOSE 140 mg/dL (74-106); POTASSIUM 3.9 mmol/L (3.5-5.1); SODIUM SERUM 139 mmol/L (136-145); UREA NITROGEN, BLOOD 28 mg/dL (7-18)
[2018-06-07] MEDS ORDERED: IV NS 0.9% 250 ML IV ONE (12:54)
[2018-06-07] MEDS ORDERED: IOHEXOL-350 100 ML VIAL IV ONE (12:54)
[2018-06-07] MEDS ORDERED: CT SWABBABLE VALVE TRANS SET 1 EA INFUS.SET MC ONE (12:54)
[2018-06-07 13:01] LABS: ALANINE AMINOTRANSFERASE 19 U/L (12-78); ALKALINE PHOSPHATASE 54 U/L (46-116); ASPARTATE AMINOTRANSFERASE 15 U/L (15-37); BILIRUBIN,DIRECT 0.1 mg/dL (0.0-0.2); BILIRUBIN,TOTAL 0.3 mg/dL (0.2-1.0); CHOLESTEROL 113 mg/dL (<200); HDL CHOLESTEROL 41 mg/dL (40-60); LDL 53 mg/dL (0-99); TOTAL PROTEIN, SERUM 6.1 g/dL (6.4-8.2); TRIGLYCERIDES 243 mg/dL (30-150)
--- NOTE | 2018-06-07 13:04 | NUR ---
PT BACK FROM CT SCAN. MORE ALERT AND VERBAL. STABLE VITALS.
--- NOTE | 2018-06-07 13:17 | NUR ---
BED 308 TELE GIVEN
--- NOTE | 2018-06-07 13:22 | NUR ---
EPIC CALLED. DR YEUNG.
--- NOTE | 2018-06-07 13:46 | NUR ---
[facility] CALLED TO CONFIRM THAT THE DR WAS PAGED. [facility] REP STATED THAT " DR CONFIRMED RECEIVING THE MESSAGE AT 1327" WAITING ON HIS CALL BACK.
[2018-06-07 13:53] LABS: APPEARANCE,URINE Clear (CLEAR); BILIRUBIN,URINE Negative (NEGATIVE); BLOOD, URINE Negative Ery/uL (NEGATIVE); COLOR,URINE Yellow (YELLOW); KETONES,URINE Negative (NEGATIVE); LEUKOCYTE ESTERASE ,URINE Negative (NEGATIVE); NITRITE, URINE Negative (NEGATIVE); PH,URINE 5.5 (5.0-8.0); PROTEIN,URINE Trace mg/dl (NEGATIVE); UGLUCOSE Negative (NEGATIVE); UROBILINOGEN,URINE 0.2 EU/dL (0.2)
[2018-06-07 14:07] LABS: BACTERIA,URINE None seen /HPF (None Seen); RBC,URINE 0-3 /HPF (0-2); SQUAMOUS EPITHELIAL CELL,UR Few /HPF (None Seen)
--- NOTE | 2018-06-07 14:16 | NUR ---
REPORT GIVEN TO ROBLES. PT AWAITING TRANSFER TO FLOOR.
[2018-06-07 14:40] VITALS: BP 153/64
[2018-06-07] MEDS ORDERED: MAG HYDROX/AL HYDROX/SIMETH 30 ML UDC PO PRN (15:00)
[2018-06-07] MEDS ORDERED: Z GUARD REMEDY 2 OZ OINT TP PRN (15:00)
[2018-06-07] MEDS ORDERED: ONDANSETRON HCL/PF 4 MG/2 ML VIAL IVP PRN (15:00)
[2018-06-07] MEDS ORDERED: ZOLPIDEM TARTRATE 5 MG TABLET PO PRN (15:00)
[2018-06-07] MEDS ORDERED: IV NS 0.9% 1,000 ML IV SCH (15:00)
[2018-06-07] MEDS ORDERED: HYDROCODONE/APAP 5/325MG 1 EACH TABLET PO PRN (15:00)
[2018-06-07] MEDS ORDERED: ACETAMINOPHEN 325 MG TABLET PO PRN (15:00)
[2018-06-07] MEDS ORDERED: MAGNESIUM HYDROXIDE 30 ML UDC PO PRN (15:00)
[2018-06-07 15:43] LABS: FERRITIN 31 ng/mL (8-388)
[2018-06-07 15:53] LABS: IRON, SERUM 70 ug/dl (50-175); TOTAL IRON BINDING CAPACITY 358 ug/dl (250-450)
[2018-06-07 16:00] VITALS: BP 139/59
--- NOTE | 2018-06-07 17:20 | NUR ---
RN NOTES Unable to give medications to Patient. Patient very sleepy.
[2018-06-07] MEDS: MIRTAZAPINE 15 MG TABLET PO SCH (18:16)
[2018-06-07] MEDS: DOCUSATE SODIUM 100 MG CAPSULE PO SCH (18:16)
[2018-06-07] MEDS: MEMANTINE HCL 5 MG TABLET PO SCH (18:16)
[2018-06-07] MEDS: CARVEDILOL 3.125 MG TABLET PO SCH (18:21)
--- NOTE | 2018-06-07 18:33 | NUR ---
SUPERVISOR HAND WORKERS NOTES Patient received at 1440 from Emergency Department d/t altered mental status. Dx. Acute encephalopathy. A/O x 1. Patient is very lethargic. Responds to name. Skin intact. Documented and photographed multiple skin discolorations. Redness on the sacral area. Mepilex applied per family request. IV on LAC 20g with IVF NS running at 50ml/hr x 1 liter. Site dry and intact with no redness nor swelling. Daughter and Caregiver at bedside. Will continue to monitor.
--- NOTE | 2018-06-07 18:53 | NUR ---
RN CLOSING NOTES Patient is asleep with no SOB nor acute distress. A/O x 1, responds to name. Unable to give medications to Patient d/t Patient being very sleepy. Will endorse to coming nurse for plan of care.
--- NOTE | 2018-06-07 19:27 | NUR ---
MS RN URINARY CATH WAS NOT DONE, PATIENT IS SO SLEEPY AND HAS SOAKED DIAPER RECENTLY.
--- NOTE | 2018-06-07 19:30 | NUR ---
RECEIVED PATIENT IN BED WITH EYES CLOSED; WINCED WHEN CHEST RUB WAS DONE; DID NOT OPEN EYES. RESPIRATIONS EVEN. PATIENT LOOKED COMFORTABLE. TELE READING SR HR 70. IV SITE PATENT, INTACT; IVF INFUSING ORDERED. ON LOW BED WITH BILATERAL UPPER SIDE RAILS UP. CALL LOPEZ WITHIN EASY REACH. WILL CONTINUE TO MONITOR.
[2018-06-07 20:00] VITALS: BP 144/72
[2018-06-07 20:03] VITALS: BP 144/72
--- NOTE | 2018-06-07 20:03 | NUR ---
PER DAY SHIFT REPORT, PATIENT MUST BE ON NECTAR THICK LIQUID. NTL ADDED TO DIET.
[2018-06-07] MEDS ORDERED: LEVETIRACETAM (250 MG) 250 MG TABLET PO SCH (21:00)
--- NOTE | 2018-06-07 21:12 | NUR ---
PATIENT UNABLE TO SWALLOW. OBTAINED ORDER FROM ANTONINO LUNA TO CHANGED KEPPRA TO IV; WAITING TO BE VERIFIED. PATIENT KEPT NPO. REGULAR DIET AND NTL DCD.
[2018-06-07] MEDS ORDERED: LEVETIRACETAM (500MG) 500 MG/5 ML VIAL IV ONE (22:30)
[2018-06-07] MEDS: LEVETIRACETAM (500MG) 250 MG in IV NS 0.9% 100 ML IV SCH (22:40)
[2018-06-07 23:50] VITALS: BP 156/65
[2018-06-08] VITALS: BP 156/65
--- NOTE | 2018-06-08 02:00 | NUR ---
PATIENT SLEEPING SOUNDLY, NEUROCHECK NOT DONE AT THIS TIME.
[2018-06-08 04:00] VITALS: BP 123/65
[2018-06-08 04:21] VITALS: BP 123/65
[2018-06-08] MEDS ORDERED: GUAI120013 PO (06:18)
--- NOTE | 2018-06-08 06:30 | NUR ---
PATIENT ASLEEP, EASILY AROUSABLE. RESPIRATIONS EVEN. NO SIGNS OF PAIN NOTED. DUE MED GIVEN WITH NO ASE NOTED. IVF INFUSING ORDERED. NEEDS ATTENDED. TURNED AND REPOSITIONED Q 2 HOURS. KEPT CLEAN, DRY, AND COMFORTABLE. SAFETY PRECAUTIONS AND COMFORT MEASURES IN PLACE. WILL GIVE REPORT TO DAY SHIFT FOR CONTINUITY OF CARE.
--- NOTE | 2018-06-08 07:44 | NUR ---
PAID SEARCH MARKETING STRATEGIST OPENING NOTES RECEIVED PT LAYING IN BED, RESTING COMFORTABLY. PT IS AROUSABLE, ALERT TO NAME. AFEBRILE. RESPIRATIONS ARE EVEN AND UNLABORED, NOT IN ANY ACUTE DISTRESS NOTED. PT APPEARS LETHARGIC. NO FACIAL GRIMACING OR MOANING NOTED. IV SITE TO LAC INTACT, NO INFILTRATION NOTED. DRESSING KEPT CLEAN AND DRY. IV FLUIDS RUNNING AT 50ML/HR, TOLERATING WELL. SAFETY MEASURES ARE IN PLACE. INSTRUCTED PT TO USE CALL LIGHT WHEN ASSISTANCE IS NEEDED, CALL LIGHT IS LEFT WITHIN REACH. WILL MONITOR THROUGHOUT SHIFT FOR CONTINUITY OF CARE. DAUGHTER AT BEDSIDE.
[2018-06-08 08:00] VITALS: BP 174/70
[2018-06-08 08:23] LABS: BASOPHILS # (AUTO) 0.1 /CMM (0.0-0.2); BASOPHILS % (AUTO) 0.8 % (0.0-2.0); EOSINOPHILS % (AUTO) 1.4 % (0.0-6.0); HEMATOCRIT 34 % (33-45); HEMOGLOBIN 11.5 g/dL (11.5-14.8); LYMPHOCYTES # (AUTO) 1.3 /CMM (0.8-4.8); LYMPHOCYTES % (AUTO) 21.1 % (20.0-44.0); MEAN CORPUSCULAR HGB CONC 34 g/dl (31.0-36.0); MEAN CORPUSCULAR VOLUME 103 fL (82-100); MONOCYTES # (AUTO) 0.7 /CMM (0.1-1.30); MONOCYTES % (AUTO) 11.5 % (2.0-12.0); NEUTROPHILS # (AUTO) 3.9 /CMM (1.8-8.9); NEUTROPHILS % (AUTO) 65.2 % (43.0-81.0); PLATELET COUNT (AUTO) 237 /CMM (150-450); RED BLOOD CELL COUNT(AUTO) 3.33 MIL/uL (4.0-5.2)
[2018-06-08 08:39] LABS: CALCIUM, SERUM 8.6 mg/dL (8.5-10.1); CARBON DIOXIDE 21 mmol/L (21-32); CHLORIDE 109 mmol/L (98-107); CREATININE 1.2 mg/dL (0.6-1.3); GLUCOSE 79 mg/dL (74-106); PHOSPHORUS 3.7 mg/dL (2.5-4.9); POTASSIUM 4.8 mmol/L (3.5-5.1); SODIUM SERUM 140 mmol/L (136-145); UREA NITROGEN, BLOOD 22 mg/dL (7-18)
[2018-06-08] MEDS: MEMANTINE HCL 5 MG TABLET PO SCH ×2 (10:07→17:03)
[2018-06-08] MEDS: PANTOPRAZOLE 40 MG TABLET.DR PO SCH (10:07)
[2018-06-08] MEDS: DOCUSATE SODIUM 100 MG CAPSULE PO SCH ×2 (10:07→17:02)
[2018-06-08] MEDS: TAMSULOSIN 0.4 MG CAP.SR.24H PO SCH (10:07)
[2018-06-08] MEDS: LEVETIRACETAM (500MG) 250 MG in IV NS 0.9% 100 ML IV SCH ×2 (10:07→21:30)
[2018-06-08] MEDS: ATORVASTATIN 10 MG TABLET PO SCH (10:07)
[2018-06-08] MEDS: CARVEDILOL 3.125 MG TABLET PO SCH ×2 (10:08→17:03)
[2018-06-08] MEDS: ASPIRIN EC 81 MG TABLET.DR PO SCH (10:08)
[2018-06-08] MEDS: FUROSEMIDE 20 MG TABLET PO SCH (10:08)
[2018-06-08] MEDS: IV NS 0.9% 1,000 ML IV PRN (12:08)
--- NOTE | 2018-06-08 12:30 | NUR ---
MS RN NOTES-- PERFORMED IN AND OUT CATH AND COLLECTED 350CC OF URINE, PT ALSO SATURATED DRAW SHEET AND ONE PAD. CG AND DINKEY MECHANIC AT BEDSIDE.
[2018-06-08 16:00] VITALS: BP 138/60
[2018-06-08] MEDS: MIRTAZAPINE 15 MG TABLET PO SCH (17:03)
--- NOTE | 2018-06-08 18:01 | NUR ---
MS AI NOTED-- IN AND OUT CATH DONE W/ OUTPUT OF 350CC.
--- NOTE | 2018-06-08 18:31 | NUR ---
MS RN CLOSING NOTES ALL DUE MEDS GIVEN, NEEDS MET AND ANTICIPATED. PT IS A/O X1-2, AFEBRILE. RESPIRATIONS ARE EVEN AND UNLABORED, NOT IN ANY ACUTE DISTRESS NOTED. STROKE ASSESSMENT DONE PER PROTOCOL. PT APPEARS TO BE MORE ALERT TODAY. IV SITE TO LAC INTACT, NO INFILTRATION NOTED. DRESSING KEPT CLEAN AND DRY. REMINDED PT TO USE CALL LIGHT WHEN ASSISTANCE IS NEEDED, CALL LIGHT IS LEFT WITHIN REACH. DAUGHTER UPDATED FREQUENTLY. WILL ENDORSE TO NEXT SHIFT FOR CONTINUITY OF CARE.
--- NOTE | 2018-06-08 19:10 | NUR ---
MS/RN NOTES RECEIVED PT. LYING IN BED. PT. IS RESTING, EASILY AROUSABLE TO NAME. AWAKE, ALERT AND ORIENTED X1-2. BREATHING EVEN AND UNLABORED ON ROOM AIR. NO SOB, RESPIRATORY DISTRESS OR COMPLAINTS OF PAIN NOTED AT THIS TIME. ASPIRATION PRECAUTIONS IMPLEMENTED AND IN PLACE. PT. WITH LEFT AC 20 GAUGE PERIPHERAL IV PRESENT, PATENT AND INTACT ADMINISTERING TO PT. NS @ 50 ML/HR. SAFETY PRECAUTIONS IMPLEMENTED AND IN PLACE. BED LOCKED AND IN LOWEST POSITION, SIDE RAILS UP X3, BED ALARM ON, CALL LIGHT WITHIN REACH, WILL CONTINUE TO MONITOR.
[2018-06-08 20:00] VITALS: BP 120/56
--- NOTE | 2018-06-09 06:58 | NUR ---
MS/RN NOTES PT. IS LYING IN BED RESTING. BREATHING EVEN AND UNLABORED ON ROOM AIR. NO SOB, RESPIRATORY DISTRESS OR COMPLAINTS OF PAIN NOTED AT THIS TIME. PT. WITH LEFT AC 20 GAUGE PERIPHERAL IV PRESENT, PATENT AND INTACT ADMINISTERING TO PT. NS @ 50 ML/HR. ASPIRATION PRECAUTIONS IMPLEMENTED AND SAFETY PRECAUTIONS IMPLEMENTED AND IN PLACE. ALL PT. NEEDS MET. PT. OFFLOADED, TURNED AND REPOSITIONED Q2H AND NEEDED. BED LOCKED AND IN LOWEST POSITION, SIDE RAILS UP X3, BED ALARM ON, CALL LIGHT WITHIN REACH, WILL ENDORSE TO DAYSHIFT NURSE FOR CONTINUITY OF CARE.
[2018-06-09 07:03] LABS: BASOPHILS # (AUTO) 0.1 /CMM (0.0-0.2); BASOPHILS % (AUTO) 1.2 % (0.0-2.0); EOSINOPHILS % (AUTO) 1.4 % (0.0-6.0); HEMATOCRIT 36 % (33-45); HEMOGLOBIN 12.1 g/dL (11.5-14.8); LYMPHOCYTES # (AUTO) 1.4 /CMM (0.8-4.8); LYMPHOCYTES % (AUTO) 24.9 % (20.0-44.0); MEAN CORPUSCULAR HGB CONC 34 g/dl (31.0-36.0); MEAN CORPUSCULAR VOLUME 103 fL (82-100); MONOCYTES # (AUTO) 0.7 /CMM (0.1-1.30); MONOCYTES % (AUTO) 13.3 % (2.0-12.0); NEUTROPHILS # (AUTO) 3.3 /CMM (1.8-8.9); NEUTROPHILS % (AUTO) 59.2 % (43.0-81.0); PLATELET COUNT (AUTO) 233 /CMM (150-450); RED BLOOD CELL COUNT(AUTO) 3.48 MIL/uL (4.0-5.2); WHITE BLOOD COUNT (AUTO) 5.5 K/uL (4.3-11.0)
[2018-06-09 07:16] LABS: CALCIUM, SERUM 8.6 mg/dL (8.5-10.1); CARBON DIOXIDE 22 mmol/L (21-32); CHLORIDE 113 mmol/L (98-107); CREATININE 1.3 mg/dL (0.6-1.3); GLUCOSE 85 mg/dL (74-106); MAGNESIUM 1.9 mg/dL (1.8-2.4); PHOSPHORUS 3.4 mg/dL (2.5-4.9); POTASSIUM 4.3 mmol/L (3.5-5.1); SODIUM SERUM 145 mmol/L (136-145); UREA NITROGEN, BLOOD 20 mg/dL (7-18)
--- NOTE | 2018-06-09 07:26 | NUR ---
MS RN OPENING NOTES RECEIVED PT IN BED W/ HOB ELEVATED, RESTING COMFORTABLY. PT IS AROUSABLE, ALERT TO NAME. AFEBRILE. RESPIRATIONS ARE EVEN AND UNLABORED, NOT IN ANY ACUTE DISTRESS NOTED. NOTED WITH RIGHT SIDED FACIAL DROOPING. NO FACIAL GRIMACING OR MOANING NOTED. IV SITE TO LAC INTACT, NO INFILTRATION NOTED. DRESSING KEPT CLEAN AND DRY. IV FLUIDS RUNNING AT 50ML/HR, TOLERATING WELL. SAFETY MEASURES ARE IN PLACE. INSTRUCTED PT TO USE CALL LIGHT WHEN ASSISTANCE IS NEEDED, CALL LIGHT IS LEFT WITHIN REACH. WILL MONITOR THROUGHOUT SHIFT FOR CONTINUITY OF CARE. DAUGHTER AT BEDSIDE.
[2018-06-09 08:00] VITALS: BP 128/54
[2018-06-09] MEDS: TAMSULOSIN 0.4 MG CAP.SR.24H PO SCH (08:21)
[2018-06-09] MEDS: ATORVASTATIN 10 MG TABLET PO SCH (08:21)
[2018-06-09] MEDS: ASPIRIN EC 81 MG TABLET.DR PO SCH (08:21)
[2018-06-09] MEDS: FUROSEMIDE 20 MG TABLET PO SCH (08:21)
[2018-06-09] MEDS: DOCUSATE SODIUM 100 MG CAPSULE PO SCH ×2 (08:21→17:17)
[2018-06-09] MEDS: PANTOPRAZOLE 40 MG TABLET.DR PO SCH (08:21)
[2018-06-09] MEDS: MEMANTINE HCL 5 MG TABLET PO SCH ×2 (08:21→17:17)
[2018-06-09] MEDS: CARVEDILOL 3.125 MG TABLET PO SCH ×2 (08:22→17:18)
[2018-06-09] MEDS: LEVETIRACETAM (500MG) 250 MG in IV NS 0.9% 100 ML IV SCH (08:22)
[2018-06-09] MEDS: IV NS 0.9% 1,000 ML IV PRN (08:32)
--- NOTE | 2018-06-09 14:09 | NUR ---
MS RN NOTES-- RECEIVED A CALL FROM DR. DINO Cardoso/ ORDERS FOR ROCEPHIN 1GM IV Q24H AND TO GIVE ONE DOSE NOW. ORDER READ BACK AND VERIFIED. NOTED AND CARRIED OUT.
--- NOTE | 2018-06-09 14:15 | NUR ---
MS CLOUD NOTES-- PAGED DR. GRANADOS FOR F/U PER DR. SUN. WAITING A CALL BACK. Addendum: 06/12/18 at 0811 by JENNIFER SHEPPARD RN CALLED [phone], SPOKE WITH BUSINESS ASSOCIATE AND STATED DR. GRANADOS WOULD BE PAGED.
[2018-06-09] MEDS ORDERED: CEFTRIAXONE 1 G VIAL IM SCH (14:30)
[2018-06-09] MEDS ORDERED: CEFTRIAXONE 1 G VIAL IV SCH (14:30)
[2018-06-09] MEDS: CEFTRIAXONE 1 G in IV D5W 50 ML IV SCH (14:39)
[2018-06-09 16:00] VITALS: BP 123/53
[2018-06-09] MEDS: MIRTAZAPINE 15 MG TABLET PO SCH (17:17)
--- NOTE | 2018-06-09 18:25 | NUR ---
MS RN CLOSING NOTES ALL DUE MEDS GIVEN, NEEDS MET AND ANTICIPATED. PT IS A/O X1-2, AFEBRILE. RESPIRATIONS ARE EVEN AND UNLABORED, NOT IN ANY ACUTE DISTRESS NOTED. STROKE ASSESSMENT DONE PER PROTOCOL. IV SITE TO LAC INTACT, NO INFILTRATION NOTED. DRESSING KEPT CLEAN AND DRY. REMINDED PT TO USE CALL LIGHT WHEN ASSISTANCE IS NEEDED, CALL LIGHT IS LEFT WITHIN REACH. WILL ENDORSE TO NEXT SHIFT FOR CONTINUITY OF CARE.
--- NOTE | 2018-06-09 19:15 | NUR ---
MS RN NOTE RECEIVED PT IN STABLE CONDITION A&O X1-2, NO SIGNS OF SOB OR DISTRESS. BREATHING EVEN AND UNLABORED. IVF INFUSING, TOLERATING WELL. SAFETY MEASURES IN PLACE: BED LOW, LOCKED, UPPER RAILS UP AND CALL LIGHT WITHIN REACH. WILL CONT TO MONITOR.
[2018-06-09 20:00] VITALS: BP 116/47
[2018-06-09] MEDS: LEVETIRACETAM (250 MG) 250 MG TABLET PO SCH (21:22)
[2018-06-09] MEDS: BISACODYL (5 MG) 5 MG TABLET.DR PO SCH (21:22)
--- NOTE | 2018-06-10 06:15 | NUR ---
MS RN NOTE PT IN STABLE CONDITION A&O X1-2, NO SIGNS OF SOB OR DISTRESS. BREATHING EVEN AND UNLABORED. IVF INFUSING, TOLERATING WELL. STROKE ASSESSMENTS DONE ORDERED. SAFETY MEASURES IN PLACE: BED LOW, LOCKED, UPPER RAILS UP AND CALL LIGHT WITHIN REACH. WILL CONT TO MONITOR AND ENDORSE TO NEXT SHIFT FOR IMER.
[2018-06-10 06:47] LABS: BASOPHILS # (AUTO) 0.1 /CMM (0.0-0.2); BASOPHILS % (AUTO) 1.4 % (0.0-2.0); EOSINOPHILS % (AUTO) 1.8 % (0.0-6.0); HEMATOCRIT 35 % (33-45); HEMOGLOBIN 11.9 g/dL (11.5-14.8); LYMPHOCYTES # (AUTO) 1.3 /CMM (0.8-4.8); LYMPHOCYTES % (AUTO) 24.2 % (20.0-44.0); MEAN CORPUSCULAR HGB CONC 34 g/dl (31.0-36.0); MEAN CORPUSCULAR VOLUME 103 fL (82-100); MONOCYTES # (AUTO) 0.7 /CMM (0.1-1.30); MONOCYTES % (AUTO) 12.8 % (2.0-12.0); NEUTROPHILS # (AUTO) 3.2 /CMM (1.8-8.9); NEUTROPHILS % (AUTO) 59.8 % (43.0-81.0); PLATELET COUNT (AUTO) 210 /CMM (150-450); RED BLOOD CELL COUNT(AUTO) 3.39 MIL/uL (4.0-5.2); WHITE BLOOD COUNT (AUTO) 5.4 K/uL (4.3-11.0)
[2018-06-10 07:01] LABS: CALCIUM, SERUM 8.5 mg/dL (8.5-10.1); CARBON DIOXIDE 23 mmol/L (21-32); CHLORIDE 113 mmol/L (98-107); CREATININE 1.2 mg/dL (0.6-1.3); GLUCOSE 85 mg/dL (74-106); MAGNESIUM 1.8 mg/dL (1.8-2.4); PHOSPHORUS 3.5 mg/dL (2.5-4.9); POTASSIUM 3.9 mmol/L (3.5-5.1); SODIUM SERUM 146 mmol/L (136-145); UREA NITROGEN, BLOOD 19 mg/dL (7-18)
--- NOTE | 2018-06-10 07:29 | NUR ---
MS RN OPENING NOTES RECEIVED PT LAYING IN BED, RESTING COMFORTABLY. PT IS AROUSABLE, ALERT AND RESPONSIVE. AFEBRILE. RESPIRATIONS ARE EVEN AND UNLABORED, NOT IN ANY ACUTE DISTRESS NOTED. DENIES ANY PAIN AT THIS TIME, NO C/O SOB, N/V. IV SITE TO VIVIANE INTACT, NO INFILTRATION NOTED. DRESSING KEPT CLEAN AND DRY. IV FLUIDS RUNNING AT 50ML/HR, TOLERATING WELL. SAFETY MEASURES ARE IN PLACE. INSTRUCTED PT TO USE CALL LIGHT WHEN ASSISTANCE IS NEEDED, CALL LIGHT IS LEFT WITHIN REACH. WILL MONITOR THROUGHOUT SHIFT FOR CONTINUITY OF CARE.
[2018-06-10 08:00] VITALS: BP 127/96
[2018-06-10] MEDS: MEMANTINE HCL 5 MG TABLET PO SCH ×2 (08:32→17:21)
[2018-06-10] MEDS: FUROSEMIDE 20 MG TABLET PO SCH (08:32)
[2018-06-10] MEDS: DOCUSATE SODIUM 100 MG CAPSULE PO SCH ×2 (08:32→17:21)
[2018-06-10] MEDS: PANTOPRAZOLE 40 MG TABLET.DR PO SCH (08:32)
[2018-06-10] MEDS: ASPIRIN EC 81 MG TABLET.DR PO SCH (08:33)
[2018-06-10] MEDS: LEVETIRACETAM (250 MG) 250 MG TABLET PO SCH ×2 (08:33→21:00)
[2018-06-10] MEDS: ATORVASTATIN 10 MG TABLET PO SCH (08:33)
[2018-06-10] MEDS: TAMSULOSIN 0.4 MG CAP.SR.24H PO SCH (08:33)
[2018-06-10] MEDS: CARVEDILOL 3.125 MG TABLET PO SCH ×2 (08:33→17:22)
[2018-06-10] MEDS ORDERED: POLYETHYLENE GLYCOL 3350 17 GM POWD.PACK PO PRN (09:00)
[2018-06-10] MEDS: IV NS 0.9% 1,000 ML IV PRN (09:42)
--- NOTE | 2018-06-10 10:01 | NUR ---
MS CLOUD NOTES-- PAGED DR. GRANADOS, STILL WAITING A CALL BACK. Addendum: 06/12/18 at 0811 by JENNIFER SHEPPARD RN CALLED [phone], SPOKE WITH WARRANT CLERK AND STATED DR. GRANADOS WOULD BE PAGED.
[2018-06-10] MEDS: CEFTRIAXONE 1 G in IV D5W 50 ML IV SCH (13:41)
[2018-06-10] MEDS: IV 1/2NS 1000 ML 1,000 ML IV PRN (13:43)
[2018-06-10 16:00] VITALS: BP 116/43
--- NOTE | 2018-06-10 16:40 | NUR ---
MS RN NOTES-- PT SEEN AND EXAMINED BY DR. SUN.
--- NOTE | 2018-06-10 16:42 | NUR ---
MS RN NOTES-- NOTIFIED DR. SUN THAT NEURO HAS NOT SEEN PT.
[2018-06-10] MEDS: MIRTAZAPINE 15 MG TABLET PO SCH (17:21)
--- NOTE | 2018-06-10 18:24 | NUR ---
MS RN CLOSING NOTES ALL DUE MEDS GIVEN, NEEDS MET AND ANTICIPATED. PT IS A/O X1-2, AFEBRILE. RESPIRATIONS ARE EVEN AND UNLABORED, NOT IN ANY ACUTE DISTRESS NOTED. STROKE ASSESSMENT DONE PER PROTOCOL. IV SITE TO DEVYN INTACT, NO INFILTRATION NOTED. DRESSING KEPT CLEAN AND DRY. REMINDED PT TO USE CALL LIGHT WHEN ASSISTANCE IS NEEDED, CALL LIGHT IS LEFT WITHIN REACH. WILL ENDORSE TO NEXT SHIFT FOR CONTINUITY OF CARE.
--- NOTE | 2018-06-10 19:10 | NUR ---
MS RN NOTE RECEIVED PT IN STABLE CONDITION A&O X1-2. CURRENTLY RESTING IN BED. NO SIGNS OF SOB OR DISTRESS NOTED. BREATHING EVEN AND UNLABORED. IV SITE IN DEVYN PATENT AND INTACT WITH IVF INFUSING, TOLERATING WELL. SAFETY MEASURES IN PLACE: BED LOW LOCKED, UPPER RAILS UP, AND CALL LIGHT WITHIN REACH. WILL CONT TO MONITOR.
[2018-06-10 20:00] VITALS: BP 128/57
[2018-06-10] MEDS: BISACODYL (5 MG) 5 MG TABLET.DR PO SCH (21:00)
[2018-06-11 06:23] LABS: BASOPHILS # (AUTO) 0.1 /CMM (0.0-0.2); BASOPHILS % (AUTO) 1.1 % (0.0-2.0); EOSINOPHILS % (AUTO) 2.1 % (0.0-6.0); HEMATOCRIT 36 % (33-45); HEMOGLOBIN 11.9 g/dL (11.5-14.8); LYMPHOCYTES # (AUTO) 1.2 /CMM (0.8-4.8); LYMPHOCYTES % (AUTO) 22.8 % (20.0-44.0); MEAN CORPUSCULAR HGB CONC 34 g/dl (31.0-36.0); MEAN CORPUSCULAR VOLUME 102 fL (82-100); MONOCYTES # (AUTO) 0.7 /CMM (0.1-1.30); MONOCYTES % (AUTO) 12.2 % (2.0-12.0); NEUTROPHILS # (AUTO) 3.4 /CMM (1.8-8.9); NEUTROPHILS % (AUTO) 61.8 % (43.0-81.0); PLATELET COUNT (AUTO) 201 /CMM (150-450); RED BLOOD CELL COUNT(AUTO) 3.46 MIL/uL (4.0-5.2); WHITE BLOOD COUNT (AUTO) 5.5 K/uL (4.3-11.0)
--- NOTE | 2018-06-11 06:24 | NUR ---
MS RN NOTE PT IN STABLE CONDITION A&O X1-2. CURRENTLY RESTING IN BED. NO SIGNS OF SOB OR DISTRESS NOTED. BREATHING EVEN AND UNLABORED. STROKE ASSESSMENTS DONE ORDERED. IV SITE IN DEVYN PATENT AND INTACT WITH IVF INFUSING, TOLERATING WELL. SAFETY MEASURES IN PLACE: BED LOW LOCKED, UPPER RAILS UP, AND CALL LIGHT WITHIN REACH. WILL CONT TO MONITOR AND ENDORSE TO NEXT SHIFT FOR IMER.
[2018-06-11 06:38] LABS: CALCIUM, SERUM 8.6 mg/dL (8.5-10.1); CHLORIDE 110 mmol/L (98-107); CREATININE 1.3 mg/dL (0.6-1.3); GLUCOSE 86 mg/dL (74-106); MAGNESIUM 1.7 mg/dL (1.8-2.4); POTASSIUM 3.6 mmol/L (3.5-5.1); SODIUM SERUM 143 mmol/L (136-145); UREA NITROGEN, BLOOD 16 mg/dL (7-18)
[2018-06-11 06:43] LABS: CARBON DIOXIDE 24 mmol/L (21-32)
[2018-06-11 08:00] VITALS: BP 164/75
--- NOTE | 2018-06-11 08:00 | NUR ---
m/s net ui developer: initial assessment received pt in bed awake, a/ox1-2 with confusion and disorientation to time, place, and situation. reality orientation provided prn. continue on ivf of 1/2 ns at 50ml/hr, infusing well. daughter with private caregiver at bedside. will continue to monitor.
[2018-06-11] MEDS: ATORVASTATIN 10 MG TABLET PO SCH (09:22)
[2018-06-11] MEDS: CARVEDILOL 3.125 MG TABLET PO SCH (09:22)
[2018-06-11] MEDS: ASPIRIN EC 81 MG TABLET.DR PO SCH (09:22)
[2018-06-11] MEDS: DOCUSATE SODIUM 100 MG CAPSULE PO SCH (09:22)
[2018-06-11] MEDS: PANTOPRAZOLE 40 MG TABLET.DR PO SCH (09:22)
[2018-06-11] MEDS: FUROSEMIDE 20 MG TABLET PO SCH (09:22)
[2018-06-11] MEDS: LEVETIRACETAM (250 MG) 250 MG TABLET PO SCH (09:23)
[2018-06-11] MEDS: MEMANTINE HCL 5 MG TABLET PO SCH (09:23)
[2018-06-11] MEDS: TAMSULOSIN 0.4 MG CAP.SR.24H PO SCH (09:23)
[2018-06-11] MEDS ORDERED: MAGNESIUM OXIDE 400 MG TABLET PO ONE (10:00)
[2018-06-11] MEDS: IV 1/2NS 1000 ML 1,000 ML IV PRN (10:43)
--- NOTE | 2018-06-11 11:00 | NUR ---
m/s chief supply chain officer: neuro consult seen by bhumi (palliative senior np) at this time. neurologist spoke to daughter and updated plan of care.
--- NOTE | 2018-06-11 12:00 | NUR ---
m/s manager human resources: notes straight cath done with 800ml of clear yellow urine, abdulaziz. well. kept clean and dry. will continue to monitor.
--- NOTE | 2018-06-11 12:45 | NUR ---
m/s cell room operator: md visit dr. galvan at bedside talking to daughter at this time.
[2018-06-11] MEDS ORDERED: FURO20TA4 PO (13:13)
[2018-06-11] MEDS ORDERED: CEFT1VIA14 IV (13:13)
[2018-06-11] MEDS ORDERED: MEGE400O5 GT (13:13)
[2018-06-11] MEDS ORDERED: NITR50CA PO (13:16)
--- NOTE | 2018-06-11 13:30 | NUR ---
m/s head animal trainer: notes received order to d'c pt back to snf. daughter aware and left the hospital after talking to dr. stacy. madsen (case management) making arrangement.
--- NOTE | 2018-06-11 14:00 | NUR ---
m/s ribbon blocker: notes pt unable to sign d'c papers due to cognitive impairment. 2 licensed staff signed all d'c papers. report given to dale (rn) for continuity of care at [facility]. pt for hot die picker at 1600 per case management. pt and caregiver made aware.
[2018-06-11] MEDS: CEFTRIAXONE 1 G in IV D5W 50 ML IV SCH (14:28)
--- NOTE | 2018-06-11 15:45 | NUR ---
M/S SALES DEPARTMENT SUPERVISOR: NOTES AMBULANCE HERE AND REPORT GIVEN TO ONE OF THE CREW. H/L REMOVED WITH TIP INTACT WITH NO BLEEDING, NO REDNESS, AND NO SWELLING NOTED. VSS.
[2018-06-11 16:00] VITALS: BP 102/52
--- NOTE | 2018-06-11 16:00 | NUR ---
M/S POWER PLANT TECHNICIAN: NOTES DISCHARGED BACK TO SNF VIA AMBULANCE IN STABLE CONDITION WITH ALL D'C PAPERS.
== END 2018-06-11 15:50 | DRG 56 ==
LOC: ER 12:13 → TELE 13:52 → MED 06-08 08:09
PROVIDERS: ADMIT Nurse Practitioner Acute Care; ATTEND Nurse Practitioner Acute Care
DX: I69.898 Other sequelae of other cerebrovascular disease (principal); N17.0 Acute kidney failure with tubular necrosis; I13.0 Hypertensive heart and chronic kidney disease with heart failure and stage 1 through stage 4 chronic kidney disease, or unspecified chronic kidney disease; C90.00 Multiple myeloma not having achieved remission; E44.1 Mild protein-calorie malnutrition; N39.0 Urinary tract infection, site not specified; E87.0 Hyperosmolality and hypernatremia; G93.49 Other encephalopathy; N18.9 Chronic kidney disease, unspecified; E11.22 Type 2 diabetes mellitus with diabetic chronic kidney disease; I50.9 Heart failure, unspecified; I77.3 Arterial fibromuscular dysplasia; F03.90 Unspecified dementia, unspecified severity, without behavioral disturbance, psychotic disturbance, mood disturbance, and anxiety; Z68.29 Body mass index [BMI] 29.0-29.9, adult; M81.0 Age-related osteoporosis without current pathological fracture; Z79.82 Long term (current) use of aspirin; Z79.899 Other long term (current) drug therapy; I25.10 Atherosclerotic heart disease of native coronary artery without angina pectoris; E86.9 Volume depletion, unspecified; E11.65 Type 2 diabetes mellitus with hyperglycemia; D63.8 Anemia in other chronic diseases classified elsewhere; E78.1 Pure hyperglyceridemia; E78.5 Hyperlipidemia, unspecified; E87.8 Other disorders of electrolyte and fluid balance, not elsewhere classified; G40.909 Epilepsy, unspecified, not intractable, without status epilepticus; K21.9 Gastro-esophageal reflux disease without esophagitis
CPT/HCPCS: 36415; 70450-TC; 70496-TC; 70498-TC; 71045-TC; 80048-TC; 80061-TC; 80076-TC; 81000-TC; 82728-TC; 82962-TC; 83540-TC; 83605-TC; 83735-TC; 84100-TC; 84484-TC; 85025-TC; 85730-TC; 87040-TC; 87081-TC; 87086-TC; 92521; 97112-TC; 97530-TC; G0378; J0696; J1953; J3490; J7030; J7050; J7060; Q9967

== ENCOUNTER 2018-06-19 11:13 | Inpatient (IN) | payer MEDICARE, BC ==
[~2018-06-19] VITALS: Ht 170.2 cm; Wt 87.5 kg
[~2018-06-19 11:13] MED LIST changes: +ASPI-1152 PO; -ASPI-1169 PO; -CALC0.253 PO; -CRAN450T3 PO; -CYAN10006 IM; +DOCU-141 PO; -FURO-145 PO; +FURO20TA4 PO; -HYDR-4076 PO; +LACT-58 PO; -LACT10SO PO; -LENA5CAP PO; -MAG355OR18 PO; +MEGE400O5 GT; +MEMA28CA PO; +MULT-447 PO; +NITR50CA PO; +OMEP20CA10 PO; +POLY17PO4 PO; +POTA10TA15 PO
--- NOTE | 2018-06-19 11:31 | NUR ---
YULY FROM [facility]RAVE, CAME IN DUE TO UNTREATED UTI x 6 DAYS. -FEVER. PER DAUGHTER, PT HAS NOT BEEN GIVEN ANY ABX. PT IS AOX1, NONVERBAL, VSS, RR EVEN AND UNLABORED ON RA. SKIN INTACT, NO ACUTE DISTRESS NOTED. DAUGHTER IS COMING AND GOING, WOULD LIKE TO BE CONTACTED WITH UPDATES. PHONE NUMBER IN PATIENT DATA. READY FOR EVAL. Addendum: 06/19/18 at 1340 by JAMIN UPON PERFORMING STRAIGHT CATH, NOTICED PT HAS SACRAL ULCER WITH CLEAN DRY DRESSING. 3 WEST NOTIFIED
[2018-06-19] MEDS ORDERED: CEFTRIAXONE 1GM BAG (ER ONLY) 50 ML IV ONE ×2 (11:54→12:00)
--- NOTE | 2018-06-19 11:57 | NUR ---
CALLED CHARAN. ITS COLBY.
[2018-06-19] MEDS ORDERED: IV NS 0.9% 1,000 ML BAG IV ONE (12:00)
--- NOTE | 2018-06-19 12:05 | NUR ---
IV ACCESS ESTABLISHED, IVF INFUSING. PT TOLERATING WELL. WILL CONT TO MONITOR.
[2018-06-19 12:11] LABS: BASOPHILS % (AUTO) 0.8 % (0.0-2.0); HEMATOCRIT 35 % (33-45); HEMOGLOBIN 11.7 g/dL (11.5-14.8); LYMPHOCYTES # (AUTO) 1.1 /CMM (0.8-4.8); LYMPHOCYTES % (AUTO) 24.5 % (20.0-44.0); MEAN CORPUSCULAR HGB CONC 33 g/dl (31.0-36.0); MEAN CORPUSCULAR VOLUME 103 fL (82-100); MONOCYTES # (AUTO) 0.5 /CMM (0.1-1.30); NEUTROPHILS # (AUTO) 2.8 /CMM (1.8-8.9); NEUTROPHILS % (AUTO) 61.7 % (43.0-81.0); PLATELET COUNT (AUTO) 214 /CMM (150-450); WHITE BLOOD COUNT (AUTO) 4.6 K/uL (4.3-11.0)
[2018-06-19 12:22] LABS: CALCIUM, SERUM 9.1 mg/dL (8.5-10.1); CARBON DIOXIDE 28 mmol/L (21-32); CHLORIDE 108 mmol/L (98-107); CREATININE 1.3 mg/dL (0.6-1.3); GLUCOSE 91 mg/dL (74-106); POTASSIUM 3.6 mmol/L (3.5-5.1); SODIUM SERUM 142 mmol/L (136-145); UREA NITROGEN, BLOOD 19 mg/dL (7-18)
[2018-06-19 12:23] LABS: ALANINE AMINOTRANSFERASE 22 U/L (12-78); ALKALINE PHOSPHATASE 54 U/L (46-116); ASPARTATE AMINOTRANSFERASE 18 U/L (15-37); BILIRUBIN,DIRECT 0.1 mg/dL (0.0-0.2); BILIRUBIN,TOTAL 0.4 mg/dL (0.2-1.0); TOTAL PROTEIN, SERUM 6.3 g/dL (6.4-8.2)
[2018-06-19 12:25] LABS: APPEARANCE,URINE Clear (CLEAR); BILIRUBIN,URINE Negative (NEGATIVE); BLOOD, URINE Negative Ery/uL (NEGATIVE); COLOR,URINE Yellow (YELLOW); KETONES,URINE Negative (NEGATIVE); LEUKOCYTE ESTERASE ,URINE Trace (NEGATIVE); NITRITE, URINE Positive (NEGATIVE); PH,URINE 5.5 (5.0-8.0); PROTEIN,URINE Negative (NEGATIVE); UGLUCOSE Negative (NEGATIVE); UROBILINOGEN,URINE 0.2 EU/dL (0.2)
[2018-06-19 12:51] LABS: BACTERIA,URINE 3+ /HPF (None Seen); RBC,URINE 0-2 /HPF (0-2); SQUAMOUS EPITHELIAL CELL,UR Few /HPF (None Seen)
--- NOTE | 2018-06-19 13:19 | NUR ---
REPORT GIVEN TO AI PITT FOR 322-1 M/S FOR CONTINUITY OF CARE
--- NOTE | 2018-06-19 13:22 | NUR ---
CONTACTED DAUGHTER ANUSHKA PER HER REQUEST TO UPDATE WITH PT ROOM NUMBER AND NURSE
[2018-06-19 13:30] VITALS: BP 132/64
[2018-06-19] MEDS ORDERED: MAGNESIUM HYDROXIDE 30 ML UDC PO PRN ×2 (13:30→14:00)
[2018-06-19] MEDS ORDERED: TEMAZEPAM 15 MG CAPSULE PO PRN (13:30)
[2018-06-19] MEDS ORDERED: MAG HYDROX/AL HYDROX/SIMETH 30 ML UDC PO PRN (13:30)
[2018-06-19] MEDS ORDERED: ONDANSETRON HCL/PF 4 MG/2 ML VIAL IVP PRN (13:30)
[2018-06-19] MEDS ORDERED: HYDROCODONE/APAP 5/325MG 1 EACH TABLET PO PRN (13:30)
[2018-06-19] MEDS ORDERED: ACETAMINOPHEN 325 MG TABLET PO PRN ×3 (13:30→18:48)
[2018-06-19] MEDS ORDERED: ALBUTEROL FS 2.5 MG/3 ML VIAL.NEB NEB PRN (14:00)
[2018-06-19] MEDS ORDERED: BISACODYL SUPP (10 MG) 10 MG/SUPP.RECT SUPP.RECT RC PRN (14:00)
--- NOTE | 2018-06-19 14:01 | NUR ---
[facility]
--- NOTE | 2018-06-19 14:30 | NUR ---
MS RN AM NOTES ADMITTED PT FROM ER WHICH IS A RESIDENT OF [facility].DX UTI AND ACUTE/CHRONIC METABOLIC ENCEPHALOPATHY.PT IS ALERT,AWAKE AND CONFUSED.ORIENTATION GIVEN TO THE UNIT AND THE USE OF CALL LIGHT.RESPIRATIONS NON LABORED ON ROOM AIR.PT DENIES ANY PAIN OR DISTRESS.PT HAS RT FACIAL DROOP WHICH SHE ALREADY HAS A LONG TIME FROM THE SNF.PT HAS BUE/BLE WEAKNESS WITH 2+ NON-PITTING EDEMA.WITH SACRAL REDNESS AND RT ELBOW DISCOLORATION.TURNED EVERY TWO HRS.AFLOAT WALLY HEELS WITH PILLOWS.CALL LIGHT PLACED WITHIN REACH.
[2018-06-19 14:40] VITALS: BP 132/64
[2018-06-19] MEDS: Z GUARD REMEDY 2 OZ OINT TP SCH ×2 (15:49→21:12)
[2018-06-19] MEDS: IV NS 0.9% 1,000 ML BAG IV PRN (15:49)
[2018-06-19 16:00] VITALS: BP 159/78
--- NOTE | 2018-06-19 16:00 | NUR ---
PT VOIDED LARGE YELLOW URINE OUTPUT IN THE DIAPER.PT'S DTR INSISTS TO PUT PT STRAIGHT CATH Q 6 HRS DUE TO URINARY RETENTION AND REFUSED RICO CATH AND DIAPER.FAMILY WANTS PT TO USE PULL UPS ONLY.SEEN BY Odette MONTGOMERY FOR SPEECH AND SWALLOW EVAL.WILL START PT ON FINELY CHOPPED WITH NECTAR THICK LIQUIDS PER DTR'S REQUEST.WILL MONITOR.
[2018-06-19] MEDS: DOCUSATE SODIUM 100 MG CAPSULE PO SCH (17:30)
[2018-06-19] MEDS: ACIDOPHILUS/BULGARICUS 1 EACH TAB.CHEW PO SCH (17:30)
[2018-06-19] MEDS: BETHANECHOL CHLORIDE (25 MG) 25 MG TABLET PO SCH (17:30)
[2018-06-19] MEDS: CARVEDILOL 3.125 MG TABLET PO SCH (17:34)
[2018-06-19] MEDS: MEGESTROL ACETATE SUSP 400 MG/10 ML UDC PO SCH (17:34)
[2018-06-19] MEDS: MEMANTINE HCL 5 MG TABLET PO SCH (17:34)
[2018-06-19] MEDS: ENSURE ENLIVE CHOC 237 ML CAN PO SCH (17:42)
--- NOTE | 2018-06-19 18:01 | NUR ---
PATIENT IS ALERT AND ORIENTED X2. PATIENT IS CALM BUT CONFUSED. PATIENT UNDERSTANDS COMMANDS BUT DOES NOT VERBALLY RESPOND. PATIENTS BLOOD PRESSURE IS 159/78 P 64, RESPIRATIONS NON LABORED ON ROOM AIR. PATIENTS IS ON ROOM AIR. PATIENTS EVENING MEDICATIONS GIVEN, CRUSHED WITH APPLE SAUCE. PATIENT ON NECTAR THICK LIQUID ONLY. BED IS IN LOW LOCKED POSITION, CALL LIGHT WITHIN REACH. WILL ENDORSE TO BOTTOM POUNDER CEMENT SHOES FOR CONTINUITY OF CARE.
--- NOTE | 2018-06-19 18:10 | NUR ---
RN NOTES PATIENT IS ALERT AND ORIENTED X2. PATIENT IS CALM BUT CONFUSED. PATIENT UNDERSTANDS COMMANDS BUT DOES NOT VERBALLY RESPOND. PATIENTS BLOOD PRESSURE IS 159/78 P 64, RESPIRATIONS NON LABORED ON ROOM AIR. PATIENTS IS ON ROOM AIR. PATIENTS EVENING MEDICATIONS GIVEN, CRUSHED WITH APPLE SAUCE. PATIENT ON NECTAR THICK LIQUID ONLY. BED IS IN LOW LOCKED POSITION, CALL LIGHT WITHIN REACH. WILL ENDORSE TO HIGHWAY ADMINISTRATIVE ENGINEER FOR CONTINUITY OF CARE.
--- NOTE | 2018-06-19 19:45 | NUR ---
RN NOTES RECEIVED PATIENT ALERT AND ORIENTED X2. PATIENT IS CALM BUT CONFUSED. NO FACIAL GRIMACING NOTED, PATIENT UNDERSTANDS COMMANDS. RESPIRATIONS NON LABORED ON ROOM AIR.ALL SAFETY MEASURES MAINTAINED BED IN LOW LOCKED POSITION, CALL LIGHT WITHIN REACH. REPOSITIONED FOR COMFORT.WILL CONTINUE TO MONITOR.
[2018-06-19 20:00] VITALS: BP 157/69
[2018-06-19] MEDS: LEVETIRACETAM SOL (5 ML) 100 MG/ML UDC PO SCH (21:11)
[2018-06-19] MEDS: ATORVASTATIN 10 MG TABLET PO SCH (21:12)
[2018-06-20] MEDS: IV NS 0.9% 1,000 ML BAG IV PRN ×2 (05:21→20:14)
[2018-06-20 06:38] LABS: BASOPHILS % (AUTO) 0.7 % (0.0-2.0); EOSINOPHILS % (AUTO) 3.5 % (0.0-6.0); HEMATOCRIT 31 % (33-45); HEMOGLOBIN 10.7 g/dL (11.5-14.8); LYMPHOCYTES # (AUTO) 1.2 /CMM (0.8-4.8); LYMPHOCYTES % (AUTO) 27.3 % (20.0-44.0); MEAN CORPUSCULAR HGB CONC 35 g/dl (31.0-36.0); MEAN CORPUSCULAR VOLUME 101 fL (82-100); MONOCYTES # (AUTO) 0.4 /CMM (0.1-1.30); MONOCYTES % (AUTO) 9.5 % (2.0-12.0); NEUTROPHILS # (AUTO) 2.5 /CMM (1.8-8.9); PLATELET COUNT (AUTO) 180 /CMM (150-450); RED BLOOD CELL COUNT(AUTO) 3.05 MIL/uL (4.0-5.2); WHITE BLOOD COUNT (AUTO) 4.2 K/uL (4.3-11.0)
--- NOTE | 2018-06-20 06:51 | NUR ---
RN NOTES ALL NEEDS ATTENDED AND MET, ALL SAFETY MEASURES MAINTAINED, ABLE TO REST AND SLEEP WITH LONG INTERVALS, REPOSITIONED FOR COMFORT, WILL ENDORSED TO AM NURSE IN STABLE CONDITION FOR CONTINUITY OF CARE.
[2018-06-20 06:57] LABS: CALCIUM, SERUM 8.7 mg/dL (8.5-10.1); CARBON DIOXIDE 22 mmol/L (21-32); CHLORIDE 112 mmol/L (98-107); CHOLESTEROL 102 mg/dL (<200); GLUCOSE 83 mg/dL (74-106); HDL CHOLESTEROL 36 mg/dL (40-60); LDL 52 mg/dL (0-99); MAGNESIUM 1.7 mg/dL (1.8-2.4); PHOSPHORUS 3.6 mg/dL (2.5-4.9); POTASSIUM 3.6 mmol/L (3.5-5.1); SODIUM SERUM 145 mmol/L (136-145); TRIGLYCERIDES 124 mg/dL (30-150); UREA NITROGEN, BLOOD 14 mg/dL (7-18)
--- NOTE | 2018-06-20 07:30 | NUR ---
RECEIVED PT. IN AM ALERT AND ORIENTED X2,SLEEPY ON AND OFF.ON RM. AIR. HOME CAREGIVER AT BEDSIDE.
[2018-06-20 08:00] VITALS: BP 151/69
--- NOTE | 2018-06-20 08:00 | NUR ---
F/C TO [facility]. DRAINAGE WITH GOOD OUTPUT.
[2018-06-20] MEDS: MEGESTROL ACETATE SUSP 400 MG/10 ML UDC PO SCH ×2 (09:18→16:59)
[2018-06-20] MEDS: BETHANECHOL CHLORIDE (25 MG) 25 MG TABLET PO SCH ×3 (09:19→16:59)
[2018-06-20] MEDS: CYANOCOBALAMIN 500 MCG TABLET PO SCH (09:19)
[2018-06-20] MEDS: MULTIVITAMINS,THERAGRAN 1 UDTAB TABLET PO SCH (09:19)
[2018-06-20] MEDS: ASCORBIC ACID 500 MG TABLET PO SCH (09:19)
[2018-06-20] MEDS: DOCUSATE SODIUM 100 MG CAPSULE PO SCH ×2 (09:19→16:59)
[2018-06-20] MEDS: MEMANTINE HCL 5 MG TABLET PO SCH ×2 (09:19→17:00)
[2018-06-20] MEDS: POTASSIUM CHLORIDE 10 MEQ TABLET.SA PO SCH (09:20)
[2018-06-20] MEDS: ACIDOPHILUS/BULGARICUS 1 EACH TAB.CHEW PO SCH ×2 (09:20→17:00)
[2018-06-20] MEDS: CARVEDILOL 3.125 MG TABLET PO SCH ×2 (09:20→17:00)
[2018-06-20] MEDS: LEVETIRACETAM SOL (5 ML) 100 MG/ML UDC PO SCH ×2 (09:21→20:47)
[2018-06-20] MEDS: CHOLECALCIFEROL 1,000 UNIT TABLET (VIT D3) PO SCH (09:21)
[2018-06-20] MEDS: ASPIRIN EC 81 MG TABLET.DR PO SCH (09:21)
[2018-06-20] MEDS: ENSURE ENLIVE CHOC 237 ML CAN PO SCH ×3 (09:21→17:01)
[2018-06-20] MEDS: Z GUARD REMEDY 2 OZ OINT TP SCH ×2 (09:22→20:49)
[2018-06-20] MEDS: PANTOPRAZOLE 40 MG TABLET.DR PO SCH (10:01)
[2018-06-20] MEDS: CEFTRIAXONE 1 G in IV D5W 50 ML IV SCH (10:01)
--- NOTE | 2018-06-20 10:30 | NUR ---
DTR. IN TO SEE PT WELL Brandy LINCOLN COMMUNICATIONS SYSTEMS ENGINEER.ORDERS GIVEN.
--- NOTE | 2018-06-20 11:30 | NUR ---
DTR. HERE WITH MULTIPLE REQUESTS.WANTS JACKY REMOVED.
[2018-06-20] MEDS: Magnesium 1GM/D5W 100ML PREMIX 100 ML IV SCH ×2 (11:32→13:14)
--- NOTE | 2018-06-20 15:00 | NUR ---
MG RPLACEMENT DONE IV.
--- NOTE | 2018-06-20 15:45 | NUR ---
RICO OUT PER ORDERS.
[2018-06-20 16:00] VITALS: BP 123/60
--- NOTE | 2018-06-20 17:43 | NUR ---
Patient has hx of dementia, she resides at [facility], [place] T: [phone]/F:[phone]. Patient requires assistance with adl's. Current dc plan is to dc back to Addendum: 06/20/18 at 1743 by YESENIA AMBROSIO RN Amended: Links added.
--- NOTE | 2018-06-20 18:00 | NUR ---
STRAIGHT CATH DONE,OBTAINED 100 ML.HAD JUST HAD INCONTINENT URINE.
--- NOTE | 2018-06-20 19:27 | NUR ---
MS/RN OPENING NOTES RECEIVED PATIENT IN BED, RESTING COMFORTABLY IN BED, IN ROOM AIR, SKIN INTACT AND DRY, BED LOCKED CALL LIGHTS WITHIN REACH, IN ROOM AIR, WITH NO GRIMACE OR GUARDING. WILL MONITOR AND CONTINUE CARE.
[2018-06-20 20:00] VITALS: BP 149/64
[2018-06-20] MEDS: ATORVASTATIN 10 MG TABLET PO SCH (21:11)
--- NOTE | 2018-06-20 23:28 | NUR ---
MS/RN NOTES PATIENT HAD LARGE AMOUNT OF URINATION, OBSERVE UNDERPADS, CHANGE AND KEEP SKIN INTACT AND DRY, BLADDER SCAN CHECK WITH ONLY 27 ML URINE RETENTION.
--- NOTE | 2018-06-21 05:29 | NUR ---
MS/RN NOTES PATIENT ABLE TO VOID, LARGE AMOUNT OF URINE UNDERPAD IS SOAKED. APPLIED Z GUARD FOR BARRIER PROTECTION. TO FOLLOW UP WITH [employer] REGARDING LATEX FREE STRAIGHT CATHETER PATIENT REPORTED ALLERGIC TO LATEX
[2018-06-21 06:47] LABS: CALCIUM, SERUM 8.9 mg/dL (8.5-10.1); CHLORIDE 112 mmol/L (98-107); CREATININE 1.1 mg/dL (0.6-1.3); GLUCOSE 99 mg/dL (74-106); MAGNESIUM 2.1 mg/dL (1.8-2.4); POTASSIUM 3.8 mmol/L (3.5-5.1); SODIUM SERUM 145 mmol/L (136-145); UREA NITROGEN, BLOOD 16 mg/dL (7-18)
--- NOTE | 2018-06-21 06:50 | NUR ---
308-1MS/RN NOTES PATIENT IN BED ABLE TO SLEEP DURING THE NIGHT, REPOSITIONED FOR COMFORT, MONITORED FOR SAFETY. KEPT COMFORTABLE. BED LOCKED, CALL LIGHTS EITHIJa REACH. WILL ENDORSE TO AM RN FOR IMER.
[2018-06-21 06:53] LABS: CARBON DIOXIDE 24 mmol/L (21-32)
--- NOTE | 2018-06-21 07:39 | NUR ---
MS RN OPENING NOTE RECEIVED PT IN BED, AROUSABLE TO VERBAL AND TACTILE STIMULI. NO ACUTE DISTRESS NOTED AT THIS TIME. BREATHING IS EVEN AND UNLABORED ON ROOM AIR. LEFT FA #20G IV IS INFUSING NS @ 75ML/HR WITHOUT REDNESS OR SWELLING. ASPIRATION PRECAUTIONS MAINTAINED. CALLED [employer] TO REQUEST LATEX FREE CATHETER. BED IS LOCKED AND IN LOWEST POSITION, SIDE RAILS UP X2. BED ALARM ON, CALL LIGHT AND POSSESSIONS WITHIN REACH.
[2018-06-21 08:00] VITALS: BP_SYST 139; BP_SYST 164; BP_DIAS 66; BP_DIAS 69
[2018-06-21] MEDS: CYANOCOBALAMIN 500 MCG TABLET PO SCH (09:03)
[2018-06-21] MEDS: ENSURE ENLIVE CHOC 237 ML CAN PO SCH ×3 (09:03→17:39)
[2018-06-21] MEDS: ASPIRIN EC 81 MG TABLET.DR PO SCH (09:03)
[2018-06-21] MEDS: MEGESTROL ACETATE SUSP 400 MG/10 ML UDC PO SCH ×2 (09:03→17:39)
[2018-06-21] MEDS: ASCORBIC ACID 500 MG TABLET PO SCH (09:03)
[2018-06-21] MEDS: LEVETIRACETAM SOL (5 ML) 100 MG/ML UDC PO SCH ×2 (09:03→21:52)
[2018-06-21] MEDS: CARVEDILOL 3.125 MG TABLET PO SCH ×2 (09:03→17:39)
[2018-06-21] MEDS: ACIDOPHILUS/BULGARICUS 1 EACH TAB.CHEW PO SCH ×2 (09:03→17:39)
[2018-06-21] MEDS: CEFTRIAXONE 1 G in IV D5W 50 ML IV SCH (09:03)
[2018-06-21] MEDS: MULTIVITAMINS,THERAGRAN 1 UDTAB TABLET PO SCH (09:03)
[2018-06-21] MEDS: PANTOPRAZOLE 40 MG TABLET.DR PO SCH (09:04)
[2018-06-21] MEDS: BETHANECHOL CHLORIDE (25 MG) 25 MG TABLET PO SCH ×3 (09:04→18:41)
[2018-06-21] MEDS: MEMANTINE HCL 5 MG TABLET PO SCH ×2 (09:04→17:39)
[2018-06-21] MEDS: CHOLECALCIFEROL 1,000 UNIT TABLET (VIT D3) PO SCH (09:04)
[2018-06-21] MEDS: DOCUSATE SODIUM 100 MG CAPSULE PO SCH ×2 (09:04→17:39)
[2018-06-21] MEDS: Z GUARD REMEDY 2 OZ OINT TP SCH ×2 (09:04→22:11)
[2018-06-21] MEDS: POTASSIUM CHLORIDE 10 MEQ TABLET.SA PO SCH (09:04)
[2018-06-21] MEDS: FUROSEMIDE 20 MG TABLET PO SCH (12:27)
--- NOTE | 2018-06-21 13:00 | NUR ---
RN NOTE BLADDER SCAN SHOWS 77ML OF URINE. THE NURSE ALSO FOUND PT WITH DIAPER SOAKED WITH URINE. NO STRAIGHT CATH AT THIS TIME. Addendum: 06/21/18 at 1414 by ROOSEVELT JARQUIN RN DIAPER CHANGE AND REPOSITIONING PROVIDED WITH NICHOLE
[2018-06-21] MEDS ORDERED: ESTROGENS,CONJUGATED TUBE VG SCH (14:00)
[2018-06-21] MEDS: IV NS 0.9% 1,000 ML BAG IV PRN (15:27)
--- NOTE | 2018-06-21 18:39 | NUR ---
MS RN CLOSING NOTE PT IN BED, AROUSABLE TO VERBAL AND TACTILE STIMULI, ORIENTED TO SELF ONLY. NO ACUTE DISTRESS NOTED AT THIS TIME. BREATHING IS EVEN AND UNLABORED ON ROOM AIR. LEFT FA #20G IV IS INFUSING NS @ 75ML/HR WITHOUT REDNESS OR SWELLING. ASPIRATION PRECAUTIONS MAINTAINED. ADLS PROVIDED AND PT ASSISTED TO TURN AND REPOSITIONED Q2H FOR THE DURATION OF THE SHIFT. BLADDER SCAN AT 1800 SHOWED 151 ML OF URINE. BED IS LOCKED AND IN LOWEST POSITION, SIDE RAILS UP X2. BED ALARM ON, CALL LIGHT AND POSSESSIONS WITHIN REACH. WILL ENDORSE TO JUNIOR GRAPHIC DESIGNER NURSE FOR CONTINUITY OF CARE.
--- NOTE | 2018-06-21 19:30 | NUR ---
RN NOTE; RECEIVED PT IN BED AWAKE AND RESPONSIVE, OX1, BREATHING EVENLY. NO SOB. NAD . SKIN WARM AND DRY. NO C/O PAIN OR DISCOMFORT. ON ONGOING IVF HYDRATION MINA WELL. NEEDS ATTENDED. BED LOW LOCKED. SRX2. CALL LIGHT WITHIN REACH. WILL CONT TO MONITOR ,
[2018-06-21 20:00] VITALS: BP 142/63
[2018-06-21] MEDS ORDERED: LEVOFLOXACIN (500MG) 500 MG TABLET PO SCH (21:00)
[2018-06-21] MEDS: ATORVASTATIN 10 MG TABLET PO SCH (22:10)
--- NOTE | 2018-06-22 00:25 | NUR ---
BLADDER SCAN DONE WITH 199ML OF RESIDUAL. PT IS VOIDING FREELY TO YELLOW URINE WITH NO HEMATURIA. DIAPER CHANGE DONE AND GOOD KIN CARE CARE RENDERED. KEPT PT CLEAN AND DRY. WILL CONT TO MONITOR ,
--- NOTE | 2018-06-22 04:46 | NUR ---
PT RESTING IN BED COMFORTABLY. WILL CONT TO MONITOR ,
--- NOTE | 2018-06-22 07:21 | NUR ---
PT IN BED AWAKE AND ALERT. BREATHING EVENLY. NO SOB. NO C/O DISCOMFORT. NEEDS ATTENDED. CLEANED AND DRIED. BED LOW LOCKED. CALL LIGHT WITHIN REACH. REPORT GIVEN TO AI MCCLAIN. FOR IMER.
--- NOTE | 2018-06-22 07:39 | NUR ---
MS RN OPENING NOTE RECEIVED PT IN BED, AROUSABLE TO VERBAL AND TACTILE STIMULI. NO ACUTE DISTRESS NOTED AT THIS TIME. BREATHING IS EVEN AND UNLABORED ON ROOM AIR. LEFT FA #20G IV IS INFUSING NS @ 75ML/HR WITHOUT REDNESS OR SWELLING. ASPIRATION PRECAUTIONS MAINTAINED. ALL NEEDS ATTENDED TO. BED IS LOCKED AND IN LOWEST POSITION, SIDE RAILS UP X2. BED ALARM ON, CALL LIGHT AND POSSESSIONS WITHIN REACH.
[2018-06-22 08:00] VITALS: BP 166/75
[2018-06-22] MEDS: CYANOCOBALAMIN 500 MCG TABLET PO SCH (08:54)
[2018-06-22] MEDS: CHOLECALCIFEROL 1,000 UNIT TABLET (VIT D3) PO SCH (08:54)
[2018-06-22] MEDS: LEVETIRACETAM SOL (5 ML) 100 MG/ML UDC PO SCH (08:54)
[2018-06-22] MEDS: ASCORBIC ACID 500 MG TABLET PO SCH (08:54)
[2018-06-22] MEDS: MEMANTINE HCL 5 MG TABLET PO SCH (08:54)
[2018-06-22] MEDS: PANTOPRAZOLE 40 MG TABLET.DR PO SCH (08:54)
[2018-06-22] MEDS: MULTIVITAMINS,THERAGRAN 1 UDTAB TABLET PO SCH (08:54)
[2018-06-22] MEDS: MEGESTROL ACETATE SUSP 400 MG/10 ML UDC PO SCH (08:54)
[2018-06-22 08:55] VITALS: BP 166/75
[2018-06-22] MEDS: BETHANECHOL CHLORIDE (25 MG) 25 MG TABLET PO SCH ×2 (08:55→12:36)
[2018-06-22] MEDS: ACIDOPHILUS/BULGARICUS 1 EACH TAB.CHEW PO SCH (08:55)
[2018-06-22] MEDS: ASPIRIN EC 81 MG TABLET.DR PO SCH (08:55)
[2018-06-22] MEDS: ENSURE ENLIVE CHOC 237 ML CAN PO SCH ×2 (08:55→12:36)
[2018-06-22] MEDS: POTASSIUM CHLORIDE 10 MEQ TABLET.SA PO SCH (08:55)
[2018-06-22] MEDS: CARVEDILOL 3.125 MG TABLET PO SCH (08:55)
[2018-06-22] MEDS: FUROSEMIDE 20 MG TABLET PO SCH (08:55)
[2018-06-22] MEDS: Z GUARD REMEDY 2 OZ OINT TP SCH (08:55)
[2018-06-22] MEDS: DOCUSATE SODIUM 100 MG CAPSULE PO SCH (08:55)
[2018-06-22] MEDS ORDERED: CYANOCOBALAMIN 1,000 MCG/ML VIAL IM ONE (10:30)
[2018-06-22 11:11] LABS: CALCIUM, SERUM 9.1 mg/dL (8.5-10.1); CARBON DIOXIDE 27 mmol/L (21-32); CHLORIDE 109 mmol/L (98-107); CREATININE 1.3 mg/dL (0.6-1.3); GLUCOSE 132 mg/dL (74-106); POTASSIUM 3.3 mmol/L (3.5-5.1); SODIUM SERUM 145 mmol/L (136-145); UREA NITROGEN, BLOOD 13 mg/dL (7-18)
[2018-06-22 11:48] LABS: BASOPHILS % (AUTO) 0.4 % (0.0-2.0); EOSINOPHILS % (AUTO) 2.1 % (0.0-6.0); HEMATOCRIT 34 % (33-45); HEMOGLOBIN 11.7 g/dL (11.5-14.8); LYMPHOCYTES # (AUTO) 1.1 /CMM (0.8-4.8); LYMPHOCYTES % (AUTO) 21.4 % (20.0-44.0); MEAN CORPUSCULAR HGB CONC 35 g/dl (31.0-36.0); MEAN CORPUSCULAR VOLUME 101 fL (82-100); MONOCYTES # (AUTO) 0.4 /CMM (0.1-1.30); NEUTROPHILS # (AUTO) 3.7 /CMM (1.8-8.9); NEUTROPHILS % (AUTO) 69.1 % (43.0-81.0); PLATELET COUNT (AUTO) 216 /CMM (150-450); RED BLOOD CELL COUNT(AUTO) 3.37 MIL/uL (4.0-5.2); WHITE BLOOD COUNT (AUTO) 5.3 K/uL (4.3-11.0)
[2018-06-22] MEDS ORDERED: POTASSIUM CHLORIDE 20 MEQ TAB.PRT.SR PO ONE (12:30)
--- NOTE | 2018-06-22 12:53 | NUR ---
MS RN NOTE COLBY LINCOLN NP ON THE PHONE WITH ANUSHKA TO DISCUSS CARE REQUESTED BY DAUGHTER.
--- NOTE | 2018-06-22 13:14 | NUR ---
MS RN NOTE REPORT GIVEN TO SAMARIA AT [facility] REQUESTED BY DAUGHTER.
--- NOTE | 2018-06-22 14:00 | NUR ---
MS RN NOTE BLADDER SCAN SHOWS 301ML OF URINE. STRAIGHT CATH NOT INDICATED AT THIS TIME.
--- NOTE | 2018-06-22 15:15 | NUR ---
MS ELEVATOR INSTALLER APPRENTICE NOTE PT DISCHARGED TO [facility] IN MEDICALLY STABLE CONDITION. REPORT GIVEN TO FRANCISCO AND SAMARIA FOR CONTINUITY OF CARE. INFORMED SAMARIA THAT ANUSHKA (DAUGHTER) TOOK DISCHARGE PAPERWORK AND PACKET, INCLUDING PRESCRIPTION FOR LEVAQUIN. PT IS ALERT AND ORIENTED TO SELF, NO ACUTE DISTRESS NOTED, BREATHING IS EVEN AND UNLABORED ON ROOM AIR. DISCHARGE PAPERWORK AND EDUCATION PROVIDED PER PROTOCOL INCLUDING TO CONTINUE LEVAQUIN 500MG PO EVERY OTHER DAY STARTING TOMORROW SINCE PT LAST DOSE WAS 06/21/18 @ 2210. LEFT FA PERIPHERAL IV REMOVED WITH CATHETER TIP INTACT. BLADDER SCAN AT 1400 SHOWED 301ML OF URINE, NO STRAIGHT CATH INDICATED AT THAT TIME. ADLS PROVIDED PRIOR TO TRANSFER AND PT TURNED AND REPOSITION Q2H FOR THE DURATION OF THE SHIFT. PT REFUSED WOUND DOCUMENTATION. WHEN THE NURSE ATTEMPTED TO TURN PT FOR PHOTOS THE PT REFUSED AND STATED "NO". RISKS AND BENEFITS EXPLAINED, PT STILL STRONGLY REFUSED. PRIVATE CAREGIVER EZEQUIEL AT THE BEDSIDE, DAUGHTER ANUSHKA AWARE AND AGREEABLE OF DISCHARGE AND PLAN OF CARE. REPORT GIVEN TO AMBULANCE STAFF FOR TRANSFER OF CARE.
[2018-06-23] MEDS ORDERED: LEVOFLOXACIN (750 MG) 750 MG TABLET PO SCH (09:00)
== END 2018-06-22 15:15 | DRG 682 ==
LOC: ER 11:18 → MED 12:50 → MEDSG2 06-21 16:37
PROVIDERS: ADMIT Nurse Practitioner Acute Care; ATTEND Nurse Practitioner Acute Care
DX: N17.0 Acute kidney failure with tubular necrosis (principal); G93.41 Metabolic encephalopathy; N39.0 Urinary tract infection, site not specified; C90.00 Multiple myeloma not having achieved remission; D68.59 Other primary thrombophilia; I13.0 Hypertensive heart and chronic kidney disease with heart failure and stage 1 through stage 4 chronic kidney disease, or unspecified chronic kidney disease; E86.0 Dehydration; G40.909 Epilepsy, unspecified, not intractable, without status epilepticus; M19.90 Unspecified osteoarthritis, unspecified site; Z88.8 Allergy status to other drugs, medicaments and biological substances; Z88.3 Allergy status to other anti-infective agents; Z91.040 Latex allergy status; Z79.82 Long term (current) use of aspirin; Z79.899 Other long term (current) drug therapy; F01.50 Vascular dementia, unspecified severity, without behavioral disturbance, psychotic disturbance, mood disturbance, and anxiety; Z86.73 Personal history of transient ischemic attack (TIA), and cerebral infarction without residual deficits; Z87.440 Personal history of urinary (tract) infections; K21.9 Gastro-esophageal reflux disease without esophagitis; M81.0 Age-related osteoporosis without current pathological fracture; Z74.09 Other reduced mobility; B96.20 Unspecified Escherichia coli [E. coli] as the cause of diseases classified elsewhere; E83.42 Hypomagnesemia; D53.9 Nutritional anemia, unspecified; N18.9 Chronic kidney disease, unspecified; E78.5 Hyperlipidemia, unspecified; E66.9 Obesity, unspecified; I25.10 Atherosclerotic heart disease of native coronary artery without angina pectoris; I50.9 Heart failure, unspecified
CPT/HCPCS: 36415; 71045-TC; 80048-TC; 80061-TC; 80076-TC; 81000-TC; 83605-TC; 83735-TC; 84100-TC; 84484-TC; 85025-TC; 85730-TC; 87040-TC; 87081-TC; 87086-TC; 87186-TC; 92526; 92611-TC; A6402; G0378; J0696; J1953; J3420; J3475; J7030; J7060

== ENCOUNTER 2018-08-21 12:13 | Inpatient (IN) | payer MEDICARE, BC ==
[~2018-08-21] VITALS: Ht 170.2 cm; Wt 80.7 kg
--- NOTE | 2018-08-21 12:15 | NUR ---
HARPAL PA AND DAUGHTER FROM [facility]ARE [facility]ILITY, NOT EATING X 3 WEEKS, TO ER BED 9, HOOKED TO MONITOR, CHANGED TO GOWN, PROVIDED W WARM BLANKET, AWAITING MD HURTADO
--- NOTE | 2018-08-21 12:25 | NUR ---
DR JOY AT BEDSIDE
[2018-08-21] MEDS ORDERED: IV NS 0.9% 1,000 ML BAG IV ONE (12:30)
[2018-08-21] MEDS ORDERED: CALC0.253 PO (12:31)
[2018-08-21] MEDS ORDERED: NPH,100I SQ (12:42)
[2018-08-21] MEDS ORDERED: FURO-145 PO (12:42)
[2018-08-21] MEDS ORDERED: NA P133E RC (12:42)
[2018-08-21] MEDS ORDERED: CRAN450C PO (12:42)
[2018-08-21] MEDS ORDERED: MEGE400O4 GT (12:44)
[2018-08-21 12:45] LABS: BASOPHILS # (AUTO) 0.1 /CMM (0.0-0.2); BASOPHILS % (AUTO) 0.9 % (0.0-2.0); HEMATOCRIT 39 % (33-45); HEMOGLOBIN 13.1 g/dL (11.5-14.8); LYMPHOCYTES # (AUTO) 1.3 /CMM (0.8-4.8); LYMPHOCYTES % (AUTO) 19.8 % (20.0-44.0); MEAN CORPUSCULAR HGB CONC 34 g/dl (31.0-36.0); MEAN CORPUSCULAR VOLUME 100 fL (82-100); MONOCYTES # (AUTO) 0.9 /CMM (0.1-1.30); MONOCYTES % (AUTO) 13.4 % (2.0-12.0); NEUTROPHILS # (AUTO) 4.2 /CMM (1.8-8.9); NEUTROPHILS % (AUTO) 63.9 % (43.0-81.0); PLATELET COUNT (AUTO) 287 /CMM (150-450); RED BLOOD CELL COUNT(AUTO) 3.93 MIL/uL (4.0-5.2); WHITE BLOOD COUNT (AUTO) 6.6 K/uL (4.3-11.0)
--- NOTE | 2018-08-21 12:45 | NUR ---
FLORAL MANAGER AT BEDSIDE
[2018-08-21] MEDS ORDERED: CYAN100T3 PO (12:48)
[2018-08-21] MEDS ORDERED: OMEG1CAP55 PO (12:48)
[2018-08-21] MEDS ORDERED: LENA5CAP PO (12:48)
[2018-08-21 12:54] LABS: CALCIUM, SERUM 8.9 mg/dL (8.5-10.1); CARBON DIOXIDE 27 mmol/L (21-32); CHLORIDE 108 mmol/L (98-107); CREATININE 1.3 mg/dL (0.6-1.3); GLUCOSE 90 mg/dL (74-106); SODIUM SERUM 144 mmol/L (136-145); UREA NITROGEN, BLOOD 27 mg/dL (7-18)
[2018-08-21 13:00] LABS: ALANINE AMINOTRANSFERASE 22 U/L (12-78); ALBUMIN 2.9 g/dL (3.4-5.0); ALKALINE PHOSPHATASE 43 U/L (46-116); ASPARTATE AMINOTRANSFERASE 14 U/L (15-37); BILIRUBIN,DIRECT 0.1 mg/dL (0.0-0.2); BILIRUBIN,TOTAL 0.5 mg/dL (0.2-1.0); TOTAL PROTEIN, SERUM 6.2 g/dL (6.4-8.2)
--- NOTE | 2018-08-21 13:27 | NUR ---
URINE SAMPLE SENT TO LAB
[2018-08-21 13:31] LABS: BILIRUBIN,URINE Negative (NEGATIVE); BLOOD, URINE Trace-lysed Ery/uL (NEGATIVE); COLOR,URINE Yellow (YELLOW); KETONES,URINE Negative (NEGATIVE); LEUKOCYTE ESTERASE ,URINE Small (NEGATIVE); NITRITE, URINE Positive (NEGATIVE); PROTEIN,URINE Negative (NEGATIVE); UGLUCOSE Negative (NEGATIVE); UROBILINOGEN,URINE 0.2 EU/dL (0.2)
[2018-08-21 13:33] LABS: APPEARANCE,URINE SLIGHTLY HAZY (CLEAR)
[2018-08-21 13:34] LABS: BACTERIA,URINE 1+ /HPF (None Seen); SQUAMOUS EPITHELIAL CELL,UR Few /HPF (None Seen); WBC,URINE 21-50 /HPF (0-3)
[2018-08-21] MEDS ORDERED: CEFTRIAXONE 1 G in IV D5W 50 ML IV ONE (14:00)
--- NOTE | 2018-08-21 14:23 | NUR ---
109 TELE UTI AMS DORIS ACCESS TECH
--- NOTE | 2018-08-21 15:05 | NUR ---
REPORT GIVEN TO SATNAM OF TELE UNIT
--- NOTE | 2018-08-21 15:05 | NUR ---
TELE1/RN REPORT FROM ER REPORT GIVEN BY ER NURSE BENJAMIN FOR PT TO BE ADMITTED FOR UTI AND AMS UNDER THE CARE OF JEREMY GEORGE. AWAITING FOR PT'S ARRIVAL.
[2018-08-21 16:00] VITALS: BP 132/46
--- NOTE | 2018-08-21 16:05 | NUR ---
TELE1/FINANCIAL BROKERS TO TELE1 UNIT - ROOM 105 PT ARRIVED VIA GURNEY WHILE I WAS WITH ANOTHER PT PROVIDING PM CARE. CHARGE NURSE RECEIVED THE PT. PT BASE LINE PER PT'S DAUGHTER IS LUCID BUT SHE WAS VERY SLEEPY WHEN SHE ARRIVED. ON ROOM AIR SATURATING @ 98%, ON TELE WITH SINUS RHYTHM, HR 68. IV SITE FLUSHED, PATENT, SL. ADMISSION PROTOCOLS ARE IN PROGRESS. PT ON NPO STATUS. AWAITING FOR ADMISSION ORDERS. CL WITHIN REACHED AND SAFETY MAINTAINED.
[2018-08-21] MEDS ORDERED: ONDANSETRON HCL/PF 4 MG/2 ML VIAL IVP PRN (17:00)
[2018-08-21] MEDS ORDERED: Z GUARD REMEDY 2 OZ OINT TP PRN (17:00)
[2018-08-21] MEDS ORDERED: MORPHINE SULFATE INJ 2 MG/ML DISP.SYRIN IV PRN (17:00)
[2018-08-21] MEDS ORDERED: ACETAMINOPHEN 650 MG/SUPP.RECT RC PRN (17:00)
--- NOTE | 2018-08-21 18:19 | NUR ---
TELE1/RN ROUNDS - DR. GAUTHIER PT SEEN & EXAMINED BY DR. GAUTHIER, NO NEW ORDERS RECEIVED AT THIS TIME.
[2018-08-21] MEDS: ENOXAPARIN SODIUM 30 MG/0.3 ML DISP.SYRIN SQ SCH (18:27)
[2018-08-21] MEDS: IV D5/0.45 NACL 1,000 ML IV PRN (19:36)
[2018-08-21] MEDS: LEVETIRACETAM (500MG) 500 MG in IV NS 0.9% 100 ML IV SCH (19:43)
--- NOTE | 2018-08-21 19:45 | NUR ---
TELE1/RN AM SHIFT END NOTES NO ACUTE CHANGE OF CONDITION NOTED SINCE PT WAS ADMITTED LATE THIS AFTERNOON, PT IS DEEPLY ASLEEP. PT ENDORSED TO PM NURSE TO COMPLETE ADMISSION PROCESS AND INSERT RICO CATHETER AND FOLLOW-UP WITH PRIMARY FOR ADMISSION ORDERS. CL WITHIN REACHED AND SAFETY MAINTAINED.
[2018-08-21 20:00] VITALS: BP 134/59
--- NOTE | 2018-08-21 20:00 | NUR ---
BLANCHING MACHINE OPERATOR - NOTES - PT RECEIVED IN BED, WAKES UP EASILY, PT IS AOX 1-2, ABLE TO ANSWER QUESTIONS APPROPRIATELY, PT IS ON ROOM AIR NO SIGNS OF DISTRESS. PT IS ON TELE SINUS RHYTHM. PT IS NPO PENDING SWALLOW EVAL. PT HAS DIAPER, VOIDING. PT HAS RIGHT 4TH TOENAIL MISSING, REDNESS ON SACRUM AND REDNESS ON BILAT HEELS, PICTURES TAKEN, WOUND CONSULT ORDERED. PT HAS LEFT AC 20G, INTACT AND PATENT WITH D51/2NS @ 75 ML/HR, WILL CONTINUE TO MONITOR
--- NOTE | 2018-08-21 21:30 | NUR ---
f/c inserted via sterile technique, pt tolerated well, large amount of clear yellow urine present
[2018-08-22] VITALS: BP 154/70
[2018-08-22] MEDS ORDERED: NA PHOS,M-B/NA PHOS,DI-BA 1 EA ENEMA RC PRN (01:00)
[2018-08-22] MEDS ORDERED: MAGNESIUM HYDROXIDE 30 ML UDC PO PRN (01:00)
[2018-08-22] MEDS ORDERED: DEXTROSE 50%-WATER 50 ML DISP.SYRIN IV PRN (01:00)
[2018-08-22] MEDS ORDERED: ACETAMINOPHEN 325 MG TABLET PO PRN (01:00)
[2018-08-22] MEDS ORDERED: BISACODYL SUPP (10 MG) 10 MG/SUPP.RECT SUPP.RECT RC PRN (01:00)
--- NOTE | 2018-08-22 01:45 | NUR ---
ct taken for CT head wo contrast and CT abd/pelvis
--- NOTE | 2018-08-22 02:05 | NUR ---
pt returned from CT, tolerated well, vss, no acute distress, pt awake alert able to answer questions appropriately
[2018-08-22 04:00] VITALS: BP 146/65
[2018-08-22 07:21] LABS: BASOPHILS # (AUTO) 0.1 /CMM (0.0-0.2); BASOPHILS % (AUTO) 1.1 % (0.0-2.0); EOSINOPHILS % (AUTO) 2.1 % (0.0-6.0); HEMATOCRIT 40 % (33-45); HEMOGLOBIN 13.1 g/dL (11.5-14.8); LYMPHOCYTES # (AUTO) 1.6 /CMM (0.8-4.8); MEAN CORPUSCULAR HGB CONC 33 g/dl (31.0-36.0); MEAN CORPUSCULAR VOLUME 100 fL (82-100); MONOCYTES # (AUTO) 0.9 /CMM (0.1-1.30); MONOCYTES % (AUTO) 13.7 % (2.0-12.0); NEUTROPHILS # (AUTO) 3.7 /CMM (1.8-8.9); NEUTROPHILS % (AUTO) 58.1 % (43.0-81.0); PLATELET COUNT (AUTO) 229 /CMM (150-450); RED BLOOD CELL COUNT(AUTO) 3.94 MIL/uL (4.0-5.2); WHITE BLOOD COUNT (AUTO) 6.3 K/uL (4.3-11.0)
[2018-08-22 07:34] LABS: ALANINE AMINOTRANSFERASE 19 U/L (12-78); ALBUMIN 2.8 g/dL (3.4-5.0); ALKALINE PHOSPHATASE 41 U/L (46-116); ASPARTATE AMINOTRANSFERASE 20 U/L (15-37); BILIRUBIN,TOTAL 0.7 mg/dL (0.2-1.0); CARBON DIOXIDE 26 mmol/L (21-32); CHLORIDE 106 mmol/L (98-107); CREATININE 1.2 mg/dL (0.6-1.3); GLUCOSE 85 mg/dL (74-106); PHOSPHORUS 4.1 mg/dL (2.5-4.9); POTASSIUM 4.2 mmol/L (3.5-5.1); SODIUM SERUM 142 mmol/L (136-145); TOTAL PROTEIN, SERUM 6.2 g/dL (6.4-8.2); UREA NITROGEN, BLOOD 23 mg/dL (7-18)
[2018-08-22 08:00] VITALS: BP 166/87
--- NOTE | 2018-08-22 08:00 | NUR ---
TELE1/RN AM SHIFT INITIAL NOTES RECEIVED PT ASLEEP IN BED, EASILY AROUSEABLE, A/O X 2, WITH DELAYED RESPONSE, DENIES ANY PAIN OR SYMPTOMS. ON ROOM AIR SATURATING @ 98%, ON TELE WITH SINUS RHYTHM, HR 66. WITH ON GOING IV INFUSION OF D5 1/2NS @ 75CC/HR. RICO CATHETER INTACT WITH YELLOW URINE OUTPUT WITH SEDIMENTS. PT ON NPO STATUS AT THIS TIME, COMFORTABLE. SCHEDULED AM MEDS TO BE GIVEN. CL WITHIN REACHED AND SAFETY MAINTAINED. ON GOING MONITORING.
[2018-08-22 08:25] LABS: CHOLESTEROL 141 mg/dL (<200); HDL CHOLESTEROL 47 mg/dL (40-60); LDL 75 mg/dL (0-99); TRIGLYCERIDES 178 mg/dL (30-150)
[2018-08-22] MEDS: BLOOD SUGAR DIAGNOSTIC 1 EACH STRIP IN SCH ×4 (08:26→21:47)
--- NOTE | 2018-08-22 08:41 | NUR ---
WOUND CARE CONSULT: PT PRESENTS WITH RT 4TH TOENAIL INJURY WITH TOENAIL MISSING AND DRY RED DRAINAGE ON TOE, PRESENT ON ADMISSION. DR GARCIA CONSULTED BY DR GEORGE. DEFER TO [facility] FOR LOWER EXTREMITIES. HEELS FLOATED. PT INCONTINENT AND IMMOBILE. RECOMMENDATIONS MADE FOR SKIN PROTECTION AND DISCUSSED WITH NURSING STAFF. PT ON FIRST STEP [facility] LOW AIRLOSS MATTRESS. WILL SEE PRN. BURGESS IN AGREEMENT WITH PLAN OF CARE. Addendum: 08/22/18 at 0843 by JIM LEWIS WNDNU Amended: Links added.
[2018-08-22 08:45] LABS: THYROID STIMULATING HORMONE 1.756 uIU/mL (0.358-3.74)
[2018-08-22] MEDS ORDERED: MEMANTINE HCL 28 MG PO SCH (09:00)
[2018-08-22] MEDS ORDERED: PANTOPRAZOLE 40 MG VIAL IV SCH (09:00)
[2018-08-22] MEDS ORDERED: Medication Not On Formulary EA (Omega-3 Acid Ethyl Esters (Lovaza) 1 GM) PO SCH (09:00)
[2018-08-22] MEDS ORDERED: Medication Not On Formulary EA (Cranberry Fruit Concentrate (Cranberry) 450 MG) PO SCH (09:00)
--- NOTE | 2018-08-22 09:15 | NUR ---
TELE1/RN ROUNDS - DR. GARCIA PT WITH DR. GARCIA EXAMINING FOR FEET. MONITORING.
[2018-08-22] MEDS: POLYETHYLENE GLYCOL 3350 17 GM POWD.PACK PO SCH (09:53)
[2018-08-22] MEDS: IV D5/0.45 NACL 1,000 ML IV PRN (09:53)
[2018-08-22] MEDS: MEGESTROL ACETATE SUSP 400 MG/10 ML UDC GT SCH (09:53)
[2018-08-22] MEDS: POTASSIUM CHLORIDE 20 MEQ TAB.PRT.SR PO SCH (09:54)
[2018-08-22] MEDS: ASPIRIN EC 81 MG TABLET.DR PO SCH (09:54)
[2018-08-22] MEDS: CHOLECALCIFEROL 1,000 UNIT TABLET (VIT D3) PO SCH (09:54)
[2018-08-22] MEDS: CALCITRIOL 0.25 MCG CAPSULE PO SCH (09:54)
[2018-08-22] MEDS: MULTIVIT W/MINERALS 1 TAB TABLET PO SCH (09:54)
[2018-08-22] MEDS: FUROSEMIDE 20 MG TABLET PO SCH (09:54)
[2018-08-22] MEDS: ACIDOPHILUS/BULGARICUS 1 EACH TAB.CHEW PO SCH ×2 (09:54→19:55)
[2018-08-22] MEDS: ASCORBIC ACID 500 MG TABLET PO SCH (09:54)
[2018-08-22] MEDS: CYANOCOBALAMIN 100 MCG TABLET PO SCH (09:54)
[2018-08-22] MEDS: DOCUSATE SODIUM 100 MG CAPSULE PO SCH ×2 (09:54→19:55)
[2018-08-22] MEDS: CARVEDILOL 3.125 MG TABLET PO SCH ×2 (09:55→17:00)
[2018-08-22] MEDS: LEVETIRACETAM (500MG) 500 MG in IV NS 0.9% 100 ML IV SCH ×2 (09:56→21:46)
--- NOTE | 2018-08-22 10:30 | NUR ---
MS1/RN ROUNDS - JEREMY GEORGE UPDATED PT'S CONDITION. PT SEEN & EXAMINED BY JEREMY GEORGE, NO NEW ORDERS RECEIVED AT THIS TIME. MONITORING CONTINUED.
--- NOTE | 2018-08-22 11:00 | NUR ---
MS1/RN ROUNDS - DR. PIZARRO PT SEEN & EXAMINED BY DR. PIZARRO WITH PT'S DAUGHTER AT BEDSIDE. PER MD PT WILL HAVE MRI OF HEAD WITHOUT CONTRAST, NOTED. MONITORING.
--- NOTE | 2018-08-22 13:00 | NUR ---
MS1/RN SWALLOW EVALUATION PT NOT AWAKE ENOUGH TO ENGAGE WITH SPEECH THERAPIST FOR SWALLOW EVALUATION, WILL TRY AGAIN TOMORROW. NO CHANGE OF CONDITION.
--- NOTE | 2018-08-22 14:49 | NUR ---
patient daughter at bedside and wanted her mother to have in and out catheter q 6 hours and scan bladder also.discussed with castillo rosales quality assurance manager,plan of care and ordered may do bladder scan now and as far as in and out catheter patient will be prone to infection.
--- NOTE | 2018-08-22 15:22 | NUR ---
DAUGHTER UPDATED WITH PLAN OF CARE.
[2018-08-22 16:00] VITALS: BP 168/64
[2018-08-22] MEDS: CEFTRIAXONE 2 G in IV D5W 100 ML IV SCH (17:31)
--- NOTE | 2018-08-22 18:30 | NUR ---
MS1/RN NGT INSERTION INSERTED NGT ON RIGHT NARE, AWAITING FOR PLACEMENT CONFIRMATION.
--- NOTE | 2018-08-22 19:30 | NUR ---
MS1/RN AM SHIFT END NOTES ALL NEEDS MET. NO ACUTE CHANGE OF CONDITION NOTED DURING THE SHIFT, NG-TUBE PLACEMENT CONFIRMED, PT VOIDED 3 TIMES DURING THE SHIFT. PT ENDORSED TO PM NURSE TO CONTINUE CARE. CL WITHIN REACHED AND SAFETY MAINTAINED.
--- NOTE | 2018-08-22 19:30 | NUR ---
RN MS NOTES PT EASILY AROUSEABLE, A/O X 2, DAUGHTER AT BEDSIDE CURRENTLY WITH DELAYED RESPONSE, DENIES ANY PAIN OR SYMPTOMS. ON ROOM AIR SATURATING @ 98%, WITH ON GOING IV INFUSION OF D5 1/2NS @ 75CC/HR. RICO CATHETER INTACT WITH YELLOW URINE OUTPUT WITH SEDIMENTS. PT ON NPO STATUS AT THIS TIME, COMFORTABLE. NG TUBE IN PLACE AND VERIFIED W EXRAY.CL WITHIN REACHED AND SAFETY MAINTAINED. WILL CONTINUE TO MONITER AND PLAN OF CARE.
[2018-08-22] MEDS: MEMANTINE HCL 5 MG TABLET PO SCH (19:54)
[2018-08-22] MEDS: FAMOTIDINE/PF INJ 20 MG/2 ML VIAL IV SCH (19:57)
[2018-08-22 20:00] VITALS: BP 145/58
[2018-08-22] MEDS: ENOXAPARIN SODIUM 30 MG/0.3 ML DISP.SYRIN SQ SCH (21:47)
[2018-08-22] MEDS: ATORVASTATIN 10 MG TABLET PO SCH (21:47)
[2018-08-22] MEDS ORDERED: LENALIDOMIDE 5 MG PO SCH (22:00)
[2018-08-23] MEDS ORDERED: ESTROGENS,CONJUGATED TUBE VG SCH (01:00)
[2018-08-23] MEDS: IV D5/0.45 NACL 1,000 ML IV PRN ×3 (02:51→21:02)
[2018-08-23 04:00] VITALS: BP 145/60
--- NOTE | 2018-08-23 06:30 | NUR ---
RN MS CLOSING NOTES: PT EASILY AROUSEABLE, A/O X 2, DELAYED RESPONSE, DENIES ANY PAIN OR SYMPTOMS. ON ROOM AIR SATURATING @ 98%, WITH ON GOING IV INFUSION OF D5 1/2NS @ 75CC/HR. PT ON NPO STATUS AT THIS TIME, COMFORTABLE. NG TUBE IN PLACE AND VERIFIED W EXRAY.CL WITHIN REACHED AND SAFETY MAINTAINED. NO ACUTE DISTRESS DURING MY SHIFT. ALL MEDS GIVEN. WILL ENDORSE TO AM NURSE.
[2018-08-23 07:02] LABS: BASOPHILS # (AUTO) 0.1 /CMM (0.0-0.2); BASOPHILS % (AUTO) 1.2 % (0.0-2.0); EOSINOPHILS % (AUTO) 1.9 % (0.0-6.0); HEMATOCRIT 39 % (33-45); HEMOGLOBIN 13.2 g/dL (11.5-14.8); LYMPHOCYTES # (AUTO) 1.2 /CMM (0.8-4.8); MEAN CORPUSCULAR HGB CONC 34 g/dl (31.0-36.0); MEAN CORPUSCULAR VOLUME 99 fL (82-100); MONOCYTES # (AUTO) 0.6 /CMM (0.1-1.30); MONOCYTES % (AUTO) 8.9 % (2.0-12.0); NEUTROPHILS # (AUTO) 4.7 /CMM (1.8-8.9); PLATELET COUNT (AUTO) 258 /CMM (150-450); RED BLOOD CELL COUNT(AUTO) 3.93 MIL/uL (4.0-5.2); WHITE BLOOD COUNT (AUTO) 6.7 K/uL (4.3-11.0)
[2018-08-23 07:35] LABS: CALCIUM, SERUM 8.8 mg/dL (8.5-10.1); CARBON DIOXIDE 23 mmol/L (21-32); CHLORIDE 107 mmol/L (98-107); CREATININE 1.1 mg/dL (0.6-1.3); GLUCOSE 94 mg/dL (74-106); POTASSIUM 3.9 mmol/L (3.5-5.1); SODIUM SERUM 142 mmol/L (136-145); UREA NITROGEN, BLOOD 16 mg/dL (7-18)
--- NOTE | 2018-08-23 07:35 | NUR ---
MS RN OPENING NOTES PATIENT IN BED SLEEPING COMFORTABLY. EASILY AROUSABLE. ALERT AND ORIENTED X2. NO PAIN OR ACUTE DISTRESS AT THIS TIME. RESPIRATION EVEN AND UNLABORED. SKIN IS DRY WARM TO TOUCH. PATIENT NOTED WITH NG TUBE. INTACT AND PATENT. IV ACCESS ON LEFT AC #20G INTACT AND PATENT WELL. FLUSHING WELL. NO S/S OF INFECTION OR INFILTRATION. ALL NEEDS ANTICIPATED. BED LOCKED AND IN LOWEST POSITION. SAFETY MEASURES OBSERVED. PLAN OF CARE DISCUSSED. CALL LIGHT WITHIN REACHED. WILL CONTINUE TO MONITOR.
[2018-08-23] MEDS: BLOOD SUGAR DIAGNOSTIC 1 EACH STRIP IN SCH ×4 (07:38→21:06)
[2018-08-23 08:00] VITALS: BP 155/56
[2018-08-23] MEDS: MEGESTROL ACETATE SUSP 400 MG/10 ML UDC GT SCH (08:31)
[2018-08-23] MEDS: ACIDOPHILUS/BULGARICUS 1 EACH TAB.CHEW PO SCH ×2 (08:31→16:40)
[2018-08-23] MEDS: DOCUSATE SODIUM 100 MG CAPSULE PO SCH ×2 (08:32→16:40)
[2018-08-23] MEDS: ASCORBIC ACID 500 MG TABLET PO SCH (08:32)
[2018-08-23] MEDS: ASPIRIN EC 81 MG TABLET.DR PO SCH (08:32)
[2018-08-23] MEDS: MEMANTINE HCL 5 MG TABLET PO SCH ×2 (08:32→16:40)
[2018-08-23] MEDS: FUROSEMIDE 20 MG TABLET PO SCH (08:32)
[2018-08-23] MEDS: MULTIVIT W/MINERALS 1 TAB TABLET PO SCH (08:32)
[2018-08-23] MEDS: FAMOTIDINE/PF INJ 20 MG/2 ML VIAL IV SCH ×2 (08:32→16:42)
[2018-08-23] MEDS: CHOLECALCIFEROL 1,000 UNIT TABLET (VIT D3) PO SCH (08:32)
[2018-08-23] MEDS: POTASSIUM CHLORIDE 20 MEQ TAB.PRT.SR PO SCH (08:32)
[2018-08-23] MEDS: CALCITRIOL 0.25 MCG CAPSULE PO SCH (08:32)
[2018-08-23] MEDS: SORBITOL SOLUTION 30 ML PO SCH (08:33)
[2018-08-23] MEDS: POLYETHYLENE GLYCOL 3350 17 GM POWD.PACK PO SCH (08:33)
[2018-08-23] MEDS: LEVETIRACETAM (500MG) 500 MG in IV NS 0.9% 100 ML IV SCH (08:36)
[2018-08-23] MEDS: CYANOCOBALAMIN 100 MCG TABLET PO SCH (08:36)
[2018-08-23] MEDS: CARVEDILOL 3.125 MG TABLET PO SCH ×2 (09:00→16:42)
--- NOTE | 2018-08-23 09:10 | NUR ---
MS RN NOTES MEDICATION COREG WAS HELD DUE TO HR OF 59. WILL CONTINUE TO MONITOR CLOSELY.
[2018-08-23] MEDS: CEFTRIAXONE 2 G in IV D5W 100 ML IV SCH (14:13)
--- NOTE | 2018-08-23 15:00 | NUR ---
RN NOTES SPOKE TO DR. GEORGE WHEN HE WAS IN THE UNIT REGARDING THE CONCERN OF THE DAUGHTER. NO NEW ORDERS AT THIS TIME.
[2018-08-23 16:00] VITALS: BP 153/73
--- NOTE | 2018-08-23 17:30 | NUR ---
RN NOTES PATIENT WAS SEEN AND EVALUATED BY DR. GAUTHIER AND A NEUROLOGIST AND WAS ANSWERING THE DAUGHTERS QUESTIONS REGARDING HER MOTHER. PATIENT REMAINS IN STABLE CONDITION. WILL CONTINUE TO MONITOR.
--- NOTE | 2018-08-23 18:45 | NUR ---
RN CLOSING NOTES PATIENT IN BED SLEEPING COMFORTABLY. EASILY AROUSABLE. NO PAIN OR ACUTE DISTRESS AT THIS TIME. RESPIRATION EVEN AND UNLABORED. SKIN IS DRY WARM TO TOUCH. HOB ELEVATED AT ALL TIMES. NG TUBE INTACT AND PATENT. ABLE TO TOLERATE MEDS WELL. NO ADVERSE REACTIONS AT THIS TIME. PATIENT WAS ABLE TO VOID X2 AND WITH BM X1. REPOSITIONED Q2H. ALL NEEDS ANTICIPATED. KEPT CLEAN AND DRY. CALL LIGHT WITHIN REACHED. BED LOCKED AND IN LOW POSITION. ENDORSE TO PM NURSE FOR IMER.
--- NOTE | 2018-08-23 21:00 | NUR ---
MS RN NOTE NGT PLACEMENT VERIFIED BY 2 RN UPON AUSCULTATION AND CONFIRMED BY CHEST XRAY.
[2018-08-23] MEDS: ENOXAPARIN SODIUM 30 MG/0.3 ML DISP.SYRIN SQ SCH (21:02)
[2018-08-23] MEDS: LEVETIRACETAM SOL (5 ML) 100 MG/ML UDC PO SCH (21:02)
[2018-08-23] MEDS: ATORVASTATIN 10 MG TABLET PO SCH (21:06)
[2018-08-23 21:34] VITALS: BP 105/70
--- NOTE | 2018-08-23 21:52 | NUR ---
MS RN NOTES RECEIVED PT ON BED. A/O X 3. ON ROOM AIR NO RESPIRATORY DISTRESS NOTED. IV ACCESS ON LAC G20 D51/2NS PATENT AND INTACT. HEAD OF BED ELEVATED. SIDE RAILS UP. CALL LIGHT WITHIN REACH. BED ALARM ON. WILL CONTINUE TO MONITOR PT CLOSELY.
[2018-08-24 04:00] VITALS: BP 118/76
--- NOTE | 2018-08-24 06:52 | NUR ---
MS RN NOTES NO ACUTE CHANGES NOTED DURING THE SHIFT. PT MORE ALERT THAN USUAL. HEAD OF BED ELEVATED. SIDE RAILS UP. CALL LIGHT WITHIN REACH. BED ALARM ON. WILL CONTINUE TO MONITOR PT CLOSELY.
[2018-08-24 07:01] LABS: BASOPHILS # (AUTO) 0.1 /CMM (0.0-0.2); BASOPHILS % (AUTO) 0.9 % (0.0-2.0); HEMATOCRIT 41 % (33-45); HEMOGLOBIN 13.7 g/dL (11.5-14.8); LYMPHOCYTES # (AUTO) 1.3 /CMM (0.8-4.8); LYMPHOCYTES % (AUTO) 20.4 % (20.0-44.0); MEAN CORPUSCULAR HGB CONC 34 g/dl (31.0-36.0); MEAN CORPUSCULAR VOLUME 99 fL (82-100); MONOCYTES # (AUTO) 0.5 /CMM (0.1-1.30); MONOCYTES % (AUTO) 7.4 % (2.0-12.0); NEUTROPHILS # (AUTO) 4.5 /CMM (1.8-8.9); NEUTROPHILS % (AUTO) 69.3 % (43.0-81.0); PLATELET COUNT (AUTO) 251 /CMM (150-450); RED BLOOD CELL COUNT(AUTO) 4.09 MIL/uL (4.0-5.2); WHITE BLOOD COUNT (AUTO) 6.5 K/uL (4.3-11.0)
--- NOTE | 2018-08-24 07:15 | NUR ---
MS RN OPENING NOTE RECEIVED PT. A/OX3. SHE RESPONDS VERBALLY AND TO COMMAND. NO ACUTE DISTRESS OR SOB NOTED. NG TUBE IN PLACE AT THE ISAAC 60. XRAY VERIFIED PLACEMENT LAST NIGHT. NO FEEDING OR SUCTION ATTACHED AT THIS TIME. L AC 20G RUNNING D5 1/2 NS @75mL/HR. SITE C/D/I, NO SIGNS OF INFILTRATION. CAREGIVER AT BEDSIDE. BED LOCKED, LOW, SIDE RAILS UPX2, CALL LIGHT WITHIN REACH. WILL CONTINUE TO MONITOR
[2018-08-24 07:16] LABS: CALCIUM, SERUM 8.9 mg/dL (8.5-10.1); CARBON DIOXIDE 25 mmol/L (21-32); CHLORIDE 107 mmol/L (98-107); CREATININE 1.3 mg/dL (0.6-1.3); GLUCOSE 88 mg/dL (74-106); PHOSPHORUS 3.4 mg/dL (2.5-4.9); POTASSIUM 3.9 mmol/L (3.5-5.1); SODIUM SERUM 142 mmol/L (136-145); UREA NITROGEN, BLOOD 12 mg/dL (7-18)
[2018-08-24 08:00] VITALS: BP 159/73
[2018-08-24] MEDS: CALCITRIOL 0.25 MCG CAPSULE PO SCH (08:11)
[2018-08-24] MEDS: ASPIRIN EC 81 MG TABLET.DR PO SCH (08:11)
[2018-08-24] MEDS: CHOLECALCIFEROL 1,000 UNIT TABLET (VIT D3) PO SCH (08:12)
[2018-08-24] MEDS: DOCUSATE SODIUM 100 MG CAPSULE PO SCH ×2 (08:13→16:48)
[2018-08-24] MEDS: ASCORBIC ACID 500 MG TABLET PO SCH (08:13)
[2018-08-24] MEDS: MULTIVIT W/MINERALS 1 TAB TABLET PO SCH (08:13)
[2018-08-24] MEDS: MEMANTINE HCL 5 MG TABLET PO SCH ×2 (08:13→16:49)
[2018-08-24] MEDS: FUROSEMIDE 20 MG TABLET PO SCH (08:13)
[2018-08-24] MEDS: ACIDOPHILUS/BULGARICUS 1 EACH TAB.CHEW PO SCH ×2 (08:13→16:48)
[2018-08-24] MEDS: POTASSIUM CHLORIDE 20 MEQ TAB.PRT.SR PO SCH (08:13)
[2018-08-24] MEDS: POLYETHYLENE GLYCOL 3350 17 GM POWD.PACK PO SCH (08:14)
[2018-08-24] MEDS: MEGESTROL ACETATE SUSP 400 MG/10 ML UDC GT SCH (08:14)
[2018-08-24] MEDS: LEVETIRACETAM SOL (5 ML) 100 MG/ML UDC PO SCH ×2 (08:14→21:12)
[2018-08-24] MEDS: FAMOTIDINE/PF INJ 20 MG/2 ML VIAL IV SCH ×2 (08:14→16:48)
[2018-08-24] MEDS: CARVEDILOL 3.125 MG TABLET PO SCH ×2 (08:16→16:49)
[2018-08-24] MEDS: CYANOCOBALAMIN 100 MCG TABLET PO SCH (08:20)
[2018-08-24] MEDS: SORBITOL SOLUTION 30 ML PO SCH (08:20)
[2018-08-24] MEDS: BLOOD SUGAR DIAGNOSTIC 1 EACH STRIP IN SCH ×4 (09:35→21:10)
--- NOTE | 2018-08-24 09:45 | NUR ---
PASSED SWALLOW EVAL. NECTAR THICK LIQUIDS AND CRUSHED MEDS ONLY. COP EXAMINER ALSO MET WITH PATIENT AND FAMILY.
[2018-08-24] MEDS: IV D5/0.45 NACL 1,000 ML IV PRN (12:36)
[2018-08-24] MEDS: ENSURE ENLIVE 237 ML LIQUID (VANILLA) PO SCH ×2 (13:18→17:00)
[2018-08-24] MEDS: CEFTRIAXONE 2 G in IV D5W 100 ML IV SCH (14:09)
[2018-08-24] MEDS: JEVITY 1.2 CAL 1,000 ML BOTTLE GT PRN (14:38)
[2018-08-24] MEDS: INSULIN REGULAR, HUMAN 100 UNIT/ML 3 ML VIAL SQ PRN (14:57)
--- NOTE | 2018-08-24 15:16 | NUR ---
NASAL GASTRIC TUBE PLACEMENT CHECKED VIA AUSCULTATION BY FLOATED TOBACCO SHAKERAI JACKSON. POSITIVE PLACEMENT. STARTED JEVITY TUBE FEEDING AT 30mL/HR. WILL CONTINUE TO MONITOR Addendum: 08/24/18 at 1522 by SHARMIN BAL RN CHEST XRAY ALSO VERIFIED PLACEMENT LAST NIGHT. AT 60 ISAAC DURING BEGINNING OF SHIFT. STILL AT 60 ISAAC.
[2018-08-24 16:00] VITALS: BP 123/58
--- NOTE | 2018-08-24 19:00 | NUR ---
MS RN CLOSING NOTE PATIENT A/OX1. NO ACUTE DISTRESS OR SOB NOTED. NG FEEDING RUNNING @30mL/HR, PATIENT TOLERATING WELL. NO S/S ASPIRATION, PLACEMENT CHECKED VIA AUSCULTATION, ASPIRATION OF GASTRIC CONTENTS, ISAAC AT NOSTRIL 60 LIKE BEGINNING OF SHIFT. NO RESIDUAL NOTED. REPORT GIVEN TO NOC RN FOR IMER.
[2018-08-24 20:00] VITALS: BP 127/67
[2018-08-24] MEDS: ATORVASTATIN 10 MG TABLET PO SCH (21:12)
[2018-08-24] MEDS: ENOXAPARIN SODIUM 30 MG/0.3 ML DISP.SYRIN SQ SCH (21:14)
[2018-08-25] MEDS: IV D5/0.45 NACL 1,000 ML IV PRN ×2 (02:41→21:04)
[2018-08-25 04:00] VITALS: BP 153/69
--- NOTE | 2018-08-25 07:20 | NUR ---
RN MS OPENING NOTES PT IS ASLEEP IN BED WITH NG TUBE RUNNING 40ML/HR. PT APPEARS TO SHOW NO OBVIOUS SIGNS OF DISTRESS. RECEIVED REPORT FROM STEM ASSEMBLER OPTICAL EFFECTS LINE UP PERSON. PT IS IN BED IN SEMI MARCIAL POSITION. BED IS LOCKED AND IN LOWEST POSITION WITH CALL LIGHT IN REACH. WILL CONTINUE TO MONITOR.
[2018-08-25 07:48] LABS: ALBUMIN 2.7 g/dL (3.4-5.0); CALCIUM, SERUM 8.7 mg/dL (8.5-10.1); CARBON DIOXIDE 21 mmol/L (21-32); CHLORIDE 107 mmol/L (98-107); CREATININE 1.2 mg/dL (0.6-1.3); GLUCOSE 119 mg/dL (74-106); PHOSPHORUS 3.5 mg/dL (2.5-4.9); SODIUM SERUM 141 mmol/L (136-145); UREA NITROGEN, BLOOD 15 mg/dL (7-18)
[2018-08-25] MEDS: BLOOD SUGAR DIAGNOSTIC 1 EACH STRIP IN SCH ×4 (07:53→21:04)
[2018-08-25 08:00] VITALS: BP 171/66
[2018-08-25] MEDS: POLYETHYLENE GLYCOL 3350 17 GM POWD.PACK PO SCH (08:44)
[2018-08-25] MEDS: CYANOCOBALAMIN 100 MCG TABLET PO SCH (08:45)
[2018-08-25] MEDS: FAMOTIDINE (20 MG) 20 MG TABLET GT SCH ×2 (08:45→17:39)
[2018-08-25] MEDS: ACIDOPHILUS/BULGARICUS 1 EACH TAB.CHEW PO SCH ×2 (08:45→17:40)
[2018-08-25] MEDS: DOCUSATE SODIUM 100 MG CAPSULE PO SCH ×2 (08:45→17:41)
[2018-08-25] MEDS: MEMANTINE HCL 5 MG TABLET PO SCH ×2 (08:46→17:41)
[2018-08-25] MEDS: CHOLECALCIFEROL 1,000 UNIT TABLET (VIT D3) PO SCH (08:46)
[2018-08-25] MEDS: MULTIVIT W/MINERALS 1 TAB TABLET PO SCH (08:46)
[2018-08-25] MEDS: ASPIRIN EC 81 MG TABLET.DR PO SCH (08:46)
[2018-08-25] MEDS: POTASSIUM CHLORIDE 20 MEQ TAB.PRT.SR PO SCH (08:46)
[2018-08-25] MEDS: ASCORBIC ACID 500 MG TABLET PO SCH (08:47)
[2018-08-25] MEDS: FUROSEMIDE 20 MG TABLET PO SCH (08:47)
[2018-08-25] MEDS: CALCITRIOL 0.25 MCG CAPSULE PO SCH (08:47)
[2018-08-25] MEDS: MEGESTROL ACETATE SUSP 400 MG/10 ML UDC GT SCH (08:48)
[2018-08-25] MEDS: LEVETIRACETAM SOL (5 ML) 100 MG/ML UDC PO SCH ×2 (08:48→21:04)
[2018-08-25] MEDS: CARVEDILOL 3.125 MG TABLET PO SCH ×2 (08:48→17:46)
[2018-08-25] MEDS: SORBITOL SOLUTION 30 ML PO SCH (08:49)
[2018-08-25] MEDS: ENSURE ENLIVE 237 ML LIQUID (VANILLA) PO SCH ×3 (08:49→17:48)
[2018-08-25 12:16] LABS: BASOPHILS % (AUTO) 0.7 % (0.0-2.0); EOSINOPHILS % (AUTO) 1.7 % (0.0-6.0); HEMATOCRIT 38 % (33-45); HEMOGLOBIN 12.9 g/dL (11.5-14.8); LYMPHOCYTES # (AUTO) 1.1 /CMM (0.8-4.8); LYMPHOCYTES % (AUTO) 17.5 % (20.0-44.0); MEAN CORPUSCULAR HGB CONC 34 g/dl (31.0-36.0); MEAN CORPUSCULAR VOLUME 99 fL (82-100); MONOCYTES # (AUTO) 0.4 /CMM (0.1-1.30); NEUTROPHILS # (AUTO) 4.4 /CMM (1.8-8.9); NEUTROPHILS % (AUTO) 73.1 % (43.0-81.0); PLATELET COUNT (AUTO) 243 /CMM (150-450); RED BLOOD CELL COUNT(AUTO) 3.81 MIL/uL (4.0-5.2)
[2018-08-25] MEDS: INSULIN REGULAR, HUMAN 100 UNIT/ML 3 ML VIAL SQ PRN (13:00)
[2018-08-25] MEDS: CEFTRIAXONE 2 G in IV D5W 100 ML IV SCH (13:22)
--- NOTE | 2018-08-25 14:30 | NUR ---
RESIDUAL CHECKED FROM NG TUBE >50 FEEDING HELD. WILL CHECK AGAIN AN ONE HOUR.
[2018-08-25 16:00] VITALS: BP 129/61
[2018-08-25] MEDS: JEVITY 1.2 CAL 1,000 ML BOTTLE GT PRN (18:29)
--- NOTE | 2018-08-25 19:28 | NUR ---
RN CLOSING NOTES PT IS ASLEEP IN BED WITH NG TUBE RUNNING 45ML/HR. PT APPEARS TO SHOW NO OBVIOUS SIGNS OF DISTRESS. GAVE REPORT TO VENEER CLIPPER HELPER EXCHANGE ADMINISTRATOR. PT IS IN BED IN SEMI MARCIAL POSITION. BED IS LOCKED AND IN LOWEST POSITION WITH CALL LIGHT IN REACH. WILL ENDORSE CONTINUITY OF CARE TO VENEER CLIPPER HELPER EXCHANGE ADMINISTRATOR.
[2018-08-25 20:00] VITALS: BP 114/53
[2018-08-25] MEDS: ENOXAPARIN SODIUM 30 MG/0.3 ML DISP.SYRIN SQ SCH (21:04)
[2018-08-25] MEDS: ATORVASTATIN 10 MG TABLET PO SCH (21:04)
[2018-08-26 04:00] VITALS: BP 166/87
--- NOTE | 2018-08-26 07:04 | NUR ---
MS RN OPENING NOTES RECEIVED PATIENT AWAKE IN BED IN NO ACUTE SIGNS OF DISTRESS. HOB ELEVATED. A/O X2-3. VERBALLY RESPONSIVE, DENIES PAIN OR ANY DISCOMFORTS AT THIS TIME. ON ROOM AIR, BREATHING EVEN AND UNLABORED. NG TUBE IN PLACE WITH FEEDING OF JEVITY AT 45ML/HR IN PROGRESS. ASPIRATION PRECAUTIONS MAINTAINED. PIV ON L AC g#20 RUNNING D5 1/2 NS @75mL/hr, NO S/S OF INFILTRATIONS NOTED. SAFETY MEASURES IN PLACE. BED IN LOW LOCKED POSITION WITH SIDE RAILS U PX2 CALL LIGHT WITHIN REACH. WILL CONTINUE TO MONITOR PT ACCORDINGLY.
[2018-08-26] MEDS: BLOOD SUGAR DIAGNOSTIC 1 EACH STRIP IN SCH ×4 (07:33→22:42)
[2018-08-26 08:00] VITALS: BP 175/68
[2018-08-26] MEDS: CALCITRIOL 0.25 MCG CAPSULE PO SCH (08:11)
[2018-08-26] MEDS: POLYETHYLENE GLYCOL 3350 17 GM POWD.PACK PO SCH (08:11)
[2018-08-26] MEDS: SORBITOL SOLUTION 30 ML PO SCH (08:11)
[2018-08-26] MEDS: FAMOTIDINE (20 MG) 20 MG TABLET GT SCH ×2 (08:11→16:54)
[2018-08-26] MEDS: ACIDOPHILUS/BULGARICUS 1 EACH TAB.CHEW PO SCH ×2 (08:11→16:52)
[2018-08-26] MEDS: MEMANTINE HCL 5 MG TABLET PO SCH ×2 (08:12→16:48)
[2018-08-26] MEDS: CYANOCOBALAMIN 100 MCG TABLET PO SCH (08:12)
[2018-08-26] MEDS: MEGESTROL ACETATE SUSP 400 MG/10 ML UDC GT SCH (08:12)
[2018-08-26] MEDS: CARVEDILOL 3.125 MG TABLET PO SCH ×2 (08:12→16:51)
[2018-08-26] MEDS: LEVETIRACETAM SOL (5 ML) 100 MG/ML UDC PO SCH ×2 (08:13→20:59)
[2018-08-26] MEDS: POTASSIUM CHLORIDE 20 MEQ TAB.PRT.SR PO SCH (08:13)
[2018-08-26] MEDS: DOCUSATE SODIUM 100 MG CAPSULE PO SCH ×2 (08:13→16:53)
[2018-08-26] MEDS: MULTIVIT W/MINERALS 1 TAB TABLET PO SCH (08:13)
[2018-08-26] MEDS: ASCORBIC ACID 500 MG TABLET PO SCH (08:13)
[2018-08-26] MEDS: FUROSEMIDE 20 MG TABLET PO SCH (08:13)
[2018-08-26] MEDS: CHOLECALCIFEROL 1,000 UNIT TABLET (VIT D3) PO SCH (08:13)
[2018-08-26] MEDS: ASPIRIN EC 81 MG TABLET.DR PO SCH (08:13)
[2018-08-26] MEDS: ENSURE ENLIVE 237 ML LIQUID (VANILLA) PO SCH ×3 (09:01→16:54)
[2018-08-26 09:12] LABS: BASOPHILS # (AUTO) 0.1 /CMM (0.0-0.2); BASOPHILS % (AUTO) 0.7 % (0.0-2.0); EOSINOPHILS % (AUTO) 2.2 % (0.0-6.0); HEMATOCRIT 40 % (33-45); LYMPHOCYTES # (AUTO) 1.1 /CMM (0.8-4.8); LYMPHOCYTES % (AUTO) 14.5 % (20.0-44.0); MEAN CORPUSCULAR HGB CONC 33 g/dl (31.0-36.0); MEAN CORPUSCULAR VOLUME 99 fL (82-100); MONOCYTES # (AUTO) 0.5 /CMM (0.1-1.30); MONOCYTES % (AUTO) 6.6 % (2.0-12.0); NEUTROPHILS # (AUTO) 5.6 /CMM (1.8-8.9); PLATELET COUNT (AUTO) 225 /CMM (150-450); WHITE BLOOD COUNT (AUTO) 7.4 K/uL (4.3-11.0)
[2018-08-26 09:50] LABS: ALBUMIN 2.8 g/dL (3.4-5.0); CARBON DIOXIDE 26 mmol/L (21-32); CHLORIDE 107 mmol/L (98-107); CREATININE 1.2 mg/dL (0.6-1.3); GLUCOSE 124 mg/dL (74-106); MAGNESIUM 2.1 mg/dL (1.8-2.4); PHOSPHORUS 3.5 mg/dL (2.5-4.9); POTASSIUM 4.1 mmol/L (3.5-5.1); SODIUM SERUM 142 mmol/L (136-145); TOTAL PROTEIN, SERUM 6.3 g/dL (6.4-8.2); UREA NITROGEN, BLOOD 18 mg/dL (7-18)
[2018-08-26] MEDS: CEFTRIAXONE 2 G in IV D5W 100 ML IV SCH (13:41)
--- NOTE | 2018-08-26 13:48 | NUR ---
RN NOTES PT SEEN AND EVALUATED BY DR RODRIGUEZ WITH VERBAL ORDER TO ADMINISTER PROVIGIL 50mg TAB TODAY AND DAILY. WILL CONTINUE TO MONITOR.
[2018-08-26] MEDS: IV D5/0.45 NACL 1,000 ML IV PRN (14:46)
[2018-08-26 16:00] VITALS: BP 137/94
--- NOTE | 2018-08-26 16:44 | NUR ---
RN NOTES URINE SPECIMEN COLLECTED AND INSURANCE MANAGER CAME TO PICK-UP SPECIMEN. WILL F/U RESULTS.
[2018-08-26] MEDS: MODAFINIL 100 MG TABLET PO SCH (16:57)
[2018-08-26] MEDS: JEVITY 1.2 CAL 1,000 ML BOTTLE GT PRN (17:00)
[2018-08-26 17:16] LABS: APPEARANCE,URINE CLEAR (CLEAR); BILIRUBIN,URINE NEGATIVE (NEGATIVE); BLOOD, URINE NEGATIVE Ery/uL (NEGATIVE); COLOR,URINE YELLOW (YELLOW); KETONES,URINE NEGATIVE (NEGATIVE); LEUKOCYTE ESTERASE ,URINE NEGATIVE (NEGATIVE); NITRITE, URINE NEGATIVE (NEGATIVE); PH,URINE 6.5 (5.0-8.0); PROTEIN,URINE NEGATIVE (NEGATIVE); UGLUCOSE NEGATIVE (NEGATIVE); UROBILINOGEN,URINE 0.2 EU/dL (0.2)
[2018-08-26] MEDS: INSULIN REGULAR, HUMAN 100 UNIT/ML 3 ML VIAL SQ PRN ×2 (17:25→22:44)
--- NOTE | 2018-08-26 18:35 | NUR ---
MS RN CLOSING NOTES PATIENT ASLEEP IN BED AT THIS TIME, EASILY AROUSABLE. HOB ELEVATED. A/O X2. FOLLOWS SOME COMMANDS. PT'S PRIVATE GLUER AND WEDGER AT BEDSIDE MOST OF TIME DURING THE DAY. ON ROOM AIR, BREATHING EVEN AND UNLABORED, NO SOB NOTED DURING THE DAY. NG TUBE IN PLACE WITH FEEDING OF JEVITY AT 50ML/HR IN PROGRESS AT THIS TIME. ASPIRATION PRECAUTIONS MAINTAINED. PIV ON L AC g#20 INTACT AND PATENT, IVF OF D5 1/2 NS @75mL/hr INFUSING WELL, NO S/S OF INFILTRATIONS NOTED. PT TURNED AND REPOSITIONED Q 2HRS AND PRN. KEPT CLEAN, DRY AND COMFORTABLE IN BED AT ALL TIMES. ALL NEEDS AND CARE PROVIDED WELL. SAFETY MEASURES IN PLACE. BED IN LOW LOCKED POSITION WITH SIDE RAILS UP X2 CALL LIGHT WITHIN REACH. WILL ENDORSE TO CARPENTER ASSISTANT NURSE FOR IMER..
--- NOTE | 2018-08-26 19:55 | NUR ---
RN NOTES, NOTED PATIENT AWAKE AND TRYING TO PULL GT, REDIRECTION PROVIDED AND PATIENT STILL TRYING TO REMOVE TUBING, INFORMED COLTON NUTHALAPATHY CAN MARKER AND RECEIVED A NEW ORDERED FOR BILATERAL SOFT WRITS RESTRAINS, SON INFORMED AND AWARE REGARDING RESTRAINS USE, AND VERBALIZED UNDERSTANDING.
[2018-08-26 20:00] VITALS: BP 115/73
[2018-08-26] MEDS: ENOXAPARIN SODIUM 30 MG/0.3 ML DISP.SYRIN SQ SCH (20:59)
[2018-08-26] MEDS: ATORVASTATIN 10 MG TABLET PO SCH (21:00)
[2018-08-27 04:00] VITALS: BP 151/84
[2018-08-27] MEDS: IV D5/0.45 NACL 1,000 ML IV PRN ×2 (04:49→18:40)
--- NOTE | 2018-08-27 06:37 | NUR ---
RN NOTES, PATIENT SLEEPING AT THIS TIME, BREATHING EVEN AND UNLABORED NO SOB/ACUTE DISTRESS NOTED, NOTED PATIENT AWAKE SEVERAL TIMES DURING THE NIGHT, BILATERAL SOFT RESTRAINS IN PLACED, FREQUENT CIRCULATION CHECKS, NO ABNORMALITY NOTED. WILL ENDORSE CONTINUITY OF CARE TO ONCOMING NURSE.
[2018-08-27 07:19] LABS: BASOPHILS # (AUTO) 0.1 /CMM (0.0-0.2); BASOPHILS % (AUTO) 0.9 % (0.0-2.0); EOSINOPHILS % (AUTO) 2.3 % (0.0-6.0); HEMATOCRIT 36 % (33-45); LYMPHOCYTES % (AUTO) 17.1 % (20.0-44.0); MEAN CORPUSCULAR HGB CONC 33 g/dl (31.0-36.0); MEAN CORPUSCULAR VOLUME 100 fL (82-100); MONOCYTES # (AUTO) 0.5 /CMM (0.1-1.30); MONOCYTES % (AUTO) 8.6 % (2.0-12.0); NEUTROPHILS # (AUTO) 4.2 /CMM (1.8-8.9); NEUTROPHILS % (AUTO) 71.1 % (43.0-81.0); PLATELET COUNT (AUTO) 209 /CMM (150-450); RED BLOOD CELL COUNT(AUTO) 3.61 MIL/uL (4.0-5.2)
[2018-08-27 07:27] LABS: ALBUMIN 2.6 g/dL (3.4-5.0); CALCIUM, SERUM 8.8 mg/dL (8.5-10.1); CARBON DIOXIDE 27 mmol/L (21-32); CHLORIDE 106 mmol/L (98-107); CREATININE 1.1 mg/dL (0.6-1.3); GLUCOSE 107 mg/dL (74-106); SODIUM SERUM 141 mmol/L (136-145); UREA NITROGEN, BLOOD 20 mg/dL (7-18)
[2018-08-27] MEDS: BLOOD SUGAR DIAGNOSTIC 1 EACH STRIP IN SCH ×4 (07:41→21:30)
--- NOTE | 2018-08-27 07:45 | NUR ---
MS RN OPENING NOTES RECEIVED PT. SLEEPING. NO ACUTE DISTRESS OR SOB NOTED. RESTRAINTS ON. NO S/S BREAKDOWN, DECREASED CIRCULATION OR SENSATION. NGTF RUNNING @50mL/HR. NO S/S ASPIRATION. PLACEMENT VERIFIED VIA AUSCULTATION, ASPIRATION AND ISAAC VISUALIZED AT 60. IV SITE L AC 20G C/D/I, RUNNING D5 1/2 NS @75mL/HR. NO S/S INFILTRATION. BED LOCKED, LOW, SIDE RAILS UP X2, BED ALARM ON, CALL LIGHT WITHIN REACH. WILL CONTINUE TO MONITOR
[2018-08-27 08:00] VITALS: BP 162/63
[2018-08-27] MEDS: POLYETHYLENE GLYCOL 3350 17 GM POWD.PACK PO SCH (09:31)
[2018-08-27] MEDS: LEVETIRACETAM SOL (5 ML) 100 MG/ML UDC PO SCH ×2 (09:31→21:10)
[2018-08-27] MEDS: MEGESTROL ACETATE SUSP 400 MG/10 ML UDC GT SCH (09:32)
[2018-08-27] MEDS: CYANOCOBALAMIN 100 MCG TABLET PO SCH (09:32)
[2018-08-27] MEDS: SORBITOL SOLUTION 30 ML PO SCH (09:32)
[2018-08-27] MEDS: POTASSIUM CHLORIDE 20 MEQ TAB.PRT.SR PO SCH (09:33)
[2018-08-27] MEDS: CHOLECALCIFEROL 1,000 UNIT TABLET (VIT D3) PO SCH (09:35)
[2018-08-27] MEDS: FAMOTIDINE (20 MG) 20 MG TABLET GT SCH ×2 (09:35→17:32)
[2018-08-27] MEDS: MEMANTINE HCL 5 MG TABLET PO SCH ×2 (09:35→17:32)
[2018-08-27] MEDS: CALCITRIOL 0.25 MCG CAPSULE PO SCH (09:35)
[2018-08-27] MEDS: ACIDOPHILUS/BULGARICUS 1 EACH TAB.CHEW PO SCH ×2 (09:35→17:32)
[2018-08-27] MEDS: CARVEDILOL 3.125 MG TABLET PO SCH ×2 (09:35→17:32)
[2018-08-27] MEDS: ASPIRIN EC 81 MG TABLET.DR PO SCH (09:35)
[2018-08-27] MEDS: FUROSEMIDE 20 MG TABLET PO SCH (09:36)
[2018-08-27] MEDS: ENSURE ENLIVE 237 ML LIQUID (VANILLA) PO SCH ×3 (09:36→17:00)
[2018-08-27] MEDS: MODAFINIL 100 MG TABLET PO SCH (09:36)
[2018-08-27] MEDS: DOCUSATE SODIUM 100 MG CAPSULE PO SCH ×2 (09:36→17:32)
[2018-08-27] MEDS: ASCORBIC ACID 500 MG TABLET PO SCH (09:36)
[2018-08-27] MEDS: MULTIVIT W/MINERALS 1 TAB TABLET PO SCH (09:47)
[2018-08-27 12:00] VITALS: BP 122/58
[2018-08-27] MEDS: CEFTRIAXONE 2 G in IV D5W 100 ML IV SCH (14:05)
[2018-08-27] MEDS: JEVITY 1.2 CAL 1,000 ML BOTTLE GT PRN (14:06)
[2018-08-27 16:00] VITALS: BP 149/50
[2018-08-27] MEDS ORDERED: MODAFINIL 100 MG TABLET PO SCH (17:00)
--- NOTE | 2018-08-27 18:10 | NUR ---
MS RN CLOSING NOTE PT. A/OX1 EATING DINNER WITH CAREGIVER AND DAUGHTER AT BEDSIDE. NO ACUTE DISTRESS OR SOB NOTED. INTAKE CALORIES BEING MONITORED CAREFULLY. NGT RUNNING FEEDING AT 50mL/HR. PLACEMENT RECHECKED VIA AUSCULTATION, ASPIRATION AND VISUALIZATION OF LANDMARK @ 60. NO S/S ASPIRATION. 5mL RESIDUAL. IV SITE C/D/I, L AC 20G RUNNING D5 1/2 NS @75mL/HR. NO SIGNS OF INFILTRATION NOTED. PATIENT TURNED Q2HR. MEPILEX ON SACRUM AT ALL TIMES. ALL ORDERED MEDS GIVEN. PT. VOIDING WELL. BED LOCKED, LOW, SIDE RAILS UPX2, CALL LIGHT WITHIN REACH. WILL ENDORSE TO NOC FOR IMER.
--- NOTE | 2018-08-27 19:40 | NUR ---
RN NOTES, PATIENT WITH EYES CLOSED AT THIS TIME, BUT AROUSES TO TACTILE STIMULI, BREATHING EVEN AND UNLABORED, NO SOB/NO ACUTE DISTRESS, NG IN PLACED, NGT FEEDING AT 50mL/HR, PATENT AND INTACT, PATIENT TOLERATED WELL, RESIDUAL OF 10ML AT THIS TIME, IV SITE C/D/I, L AC 20G RUNNING D5 1/2 NS @75mL/HR, INFUSING WELL AND PATIENT TOLERATED WELL, NO SIGNS OF INFILTRATION NOTED, DRY AND CLEAN AT THIS TIME, DAUGHTER ST BEDSIDE, BED LOCKED AND LOW POSITION, BILATERAL 1/2 SIDE RAILS UPX2, CALL LIGHT WITHIN REACH, WILL CONTINUE TO MONITOR CLOSELY.
[2018-08-27 20:00] VITALS: BP 126/63
[2018-08-27] MEDS: ATORVASTATIN 10 MG TABLET PO SCH (21:10)
[2018-08-27] MEDS: ENOXAPARIN SODIUM 30 MG/0.3 ML DISP.SYRIN SQ SCH (21:13)
[2018-08-27] MEDS: INSULIN REGULAR, HUMAN 100 UNIT/ML 3 ML VIAL SQ PRN (21:32)
[2018-08-28 04:00] VITALS: BP 147/68
[2018-08-28 06:02] LABS: BASOPHILS % (AUTO) 0.7 % (0.0-2.0); EOSINOPHILS % (AUTO) 2.2 % (0.0-6.0); HEMATOCRIT 36 % (33-45); HEMOGLOBIN 12.2 g/dL (11.5-14.8); LYMPHOCYTES # (AUTO) 1.4 /CMM (0.8-4.8); LYMPHOCYTES % (AUTO) 19.8 % (20.0-44.0); MEAN CORPUSCULAR HGB CONC 34 g/dl (31.0-36.0); MEAN CORPUSCULAR VOLUME 100 fL (82-100); MONOCYTES # (AUTO) 0.7 /CMM (0.1-1.30); MONOCYTES % (AUTO) 10.7 % (2.0-12.0); NEUTROPHILS # (AUTO) 4.6 /CMM (1.8-8.9); NEUTROPHILS % (AUTO) 66.6 % (43.0-81.0); PLATELET COUNT (AUTO) 197 /CMM (150-450); RED BLOOD CELL COUNT(AUTO) 3.59 MIL/uL (4.0-5.2); WHITE BLOOD COUNT (AUTO) 6.8 K/uL (4.3-11.0)
[2018-08-28 06:08] LABS: CALCIUM, SERUM 8.8 mg/dL (8.5-10.1); CARBON DIOXIDE 27 mmol/L (21-32); CHLORIDE 106 mmol/L (98-107); GLUCOSE 104 mg/dL (74-106); POTASSIUM 4.4 mmol/L (3.5-5.1); SODIUM SERUM 142 mmol/L (136-145); UREA NITROGEN, BLOOD 21 mg/dL (7-18)
--- NOTE | 2018-08-28 06:39 | NUR ---
RN NOTES, PATIENT SLEEPING AT THIS TIME, BUT AROUSES TO VERBAL STIMULI, BREATHING EVEN AND UNLABORED, NO SOB/NO ACUTE DISTRESS, NG IN PLACED, NGT FEEDING AT 50mL/HR, PATENT AND INTACT, PATIENT TOLERATED WELL, RESIDUAL OF 10ML AT THIS TIME, IV SITE C/D/I, L AC 20G RUNNING D5 1/2 NS @75mL/HR, INFUSING WELL AND PATIENT TOLERATED WELL, NO SIGNS OF INFILTRATION NOTED, DRY AND CLEAN AT THIS TIME, ON BILATERAL MITTENS, FAMILY AWARE, CIRCULATION CHECK OFTEN, NO ABNORMALITY NOTED, CIRCULATION INTACT, BED LOCKED AND LOW POSITION, BILATERAL 1/2 SIDE RAILS UPX2, CALL LIGHT WITHIN REACH, NO SIGNIFICANT CHANGE TN CONDITION DURING THE NIGHT, WILL ENDORSE CONTINUITY OF CARE TO ONCOMING NURSE.
--- NOTE | 2018-08-28 07:30 | NUR ---
MS RN AM NOTES PT IN BED SLEEPING. AROUSES TO TOUCH AND NAME, CAREGIVER AT BEDSIDE, AOX2, ON RA, NOT IN ANY DISTRESS, RESPIRATION UNLABORED, NO SIGNS OF PAIN, D5 1/2 NS AT 75 ML/HR RUNNING TO LAC. SITE CLEAR, NGT FEEDING RUNNING @50mL/HR. 0 RESIDUAL. CHECK FOR PLACEMENT VIA AUSCULTATION. NO S/S ASPIRATION. SEE NURSING FLOWSHEET FOR SKIN ISSUES. BED LOCKED, LOW, SIDE RAILS UP X2, BED ALARM ON, CALL LIGHT WITHIN REACH. WILL CONTINUE TO MONITOR Addendum: 08/28/18 at 1440 by BURTON LUNA RN ADDENDUM 0730 - ACCUCHECK DONE. BS 106 MG/DL. NO INSULIN COVERAGE GIVEN
[2018-08-28 08:00] VITALS: BP 157/61
[2018-08-28] MEDS: BLOOD SUGAR DIAGNOSTIC 1 EACH STRIP IN SCH ×4 (08:15→21:08)
[2018-08-28] MEDS: IV D5/0.45 NACL 1,000 ML IV PRN ×2 (08:54→23:09)
[2018-08-28] MEDS: MULTIVIT W/MINERALS 1 TAB TABLET PO SCH (09:23)
[2018-08-28] MEDS: MEMANTINE HCL 5 MG TABLET PO SCH ×2 (09:23→17:25)
[2018-08-28] MEDS: ASPIRIN EC 81 MG TABLET.DR PO SCH (09:23)
[2018-08-28] MEDS: POLYETHYLENE GLYCOL 3350 17 GM POWD.PACK PO SCH (09:23)
[2018-08-28] MEDS: MEGESTROL ACETATE SUSP 400 MG/10 ML UDC GT SCH (09:24)
[2018-08-28] MEDS: ACIDOPHILUS/BULGARICUS 1 EACH TAB.CHEW PO SCH ×2 (09:24→17:24)
[2018-08-28] MEDS: ASCORBIC ACID 500 MG TABLET PO SCH (09:25)
[2018-08-28] MEDS: CHOLECALCIFEROL 1,000 UNIT TABLET (VIT D3) PO SCH (09:25)
[2018-08-28] MEDS: DOCUSATE SODIUM 100 MG CAPSULE PO SCH ×2 (09:25→17:24)
[2018-08-28] MEDS: FAMOTIDINE (20 MG) 20 MG TABLET GT SCH ×2 (09:25→17:24)
[2018-08-28] MEDS: FUROSEMIDE 20 MG TABLET PO SCH (09:25)
[2018-08-28] MEDS: LEVETIRACETAM SOL (5 ML) 100 MG/ML UDC PO SCH ×2 (09:25→21:06)
[2018-08-28] MEDS: CYANOCOBALAMIN 100 MCG TABLET PO SCH (09:25)
[2018-08-28] MEDS: CALCITRIOL 0.25 MCG CAPSULE PO SCH (09:26)
[2018-08-28] MEDS: MODAFINIL 100 MG TABLET PO SCH (09:26)
[2018-08-28] MEDS: CARVEDILOL 3.125 MG TABLET PO SCH ×2 (09:27→17:25)
[2018-08-28] MEDS: SORBITOL SOLUTION 30 ML PO SCH (09:29)
[2018-08-28] MEDS: ENSURE ENLIVE 237 ML LIQUID (VANILLA) PO SCH ×4 (09:30→21:00)
--- NOTE | 2018-08-28 09:30 | NUR ---
MS RN NOTES DUE MEDS GIVEN
[2018-08-28] MEDS: POTASSIUM CHLORIDE 20 MEQ TAB.PRT.SR PO SCH (09:31)
[2018-08-28] MEDS: JEVITY 1.2 CAL 1,000 ML BOTTLE GT PRN (09:57)
--- NOTE | 2018-08-28 12:17 | NUR ---
MS RN NOTES ACCUCHECK DONE. BS 117 MG/DL. NO INSULIN COVERAGE GIVEN
[2018-08-28] MEDS ORDERED: POLYETHYLENE GLYCOL 3350 17 GM POWD.PACK PO PRN (14:00)
[2018-08-28] MEDS ORDERED: BISACODYL SUPP (10 MG) 10 MG/SUPP.RECT SUPP.RECT RC PRN (14:00)
[2018-08-28 16:00] VITALS: BP 135/62
--- NOTE | 2018-08-28 17:45 | NUR ---
MS RN NOTES ACCUCHECK DONE. BS 108 MG/DL. NO INSULIN COVERAGE GIVEN
--- NOTE | 2018-08-28 18:57 | NUR ---
MS RN CLOSING NOTES PT IN BED SLEEPING. AROUSES TO TOUCH AND NAME, AOX2, ON RA, NOT IN ANY DISTRESS, RESPIRATION UNLABORED, NO SIGNS OF PAIN, D5 1/2 NS AT 75 ML/HR RUNNING TO LAC. SITE CLEAR, NGT IN PLACE. CHECKED FOR PLACEMENT VIA AUSCULTATION. NO S/S ASPIRATION. BED LOCKED, LOW, SIDE RAILS UP X2, BED ALARM ON, CALL LIGHT WITHIN REACH. ALL NEEDS MET. NO OTHER SIGNIFICANT CHANGE IN CONDITION. WILL ENDORSE TO NEXT SHIFT FOR IMER.
--- NOTE | 2018-08-28 19:31 | NUR ---
RN MS OPENING NOTES RECEIVED PT IN BED, SLEEPING, EASILY AROUSED AND RESPONSIVE TO TACTILE STIMULI, ABLE TO MAKE NEED KNOWN. BREATHING EVEN AND UNLABORED ON ROOM AIR. IN NO APPARENT DISTRESS OR DISCOMFORT AT THIS TIME. IV ACCESS ON THE L AC 20G D51/2NS @75ML/HR. NG TUBE IN PLACE AND CLAMPED, BED IN LOWEST LOCKED POSITION, CALL LIGHT WITHIN REACH AT ALL TIME, WILL CONTINUE TO MONITOR FREQUENTLY.
[2018-08-28 20:00] VITALS: BP 152/66
[2018-08-28] MEDS: ATORVASTATIN 10 MG TABLET PO SCH (21:06)
[2018-08-28] MEDS: ENOXAPARIN SODIUM 30 MG/0.3 ML DISP.SYRIN SQ SCH (21:07)
[2018-08-29 04:00] VITALS: BP 149/62
--- NOTE | 2018-08-29 06:08 | NUR ---
RN MS CLOSING NOTES PT REMAINS IN BED, SLEEPING, EASILY AROUSED AND RESPONSIVE TO TACTILE STIMULI. BREATHING EVEN AND UNLABORED ON ROOM AIR. IN NO APPARENT DISTRESS OR DISCOMFORT AT THIS TIME. IV ACCESS ON THE L AC 20G D51/2NS @75ML/HR. NG TUBE IN PLACE AND CLAMPED, BED IN LOWEST LOCKED POSITION, CALL LIGHT WITHIN REACH AT ALL TIME, WILL ENDORSE TO DAY NURSE
[2018-08-29] MEDS: BLOOD SUGAR DIAGNOSTIC 1 EACH STRIP IN SCH ×4 (06:32→21:59)
--- NOTE | 2018-08-29 07:38 | NUR ---
MS RN OPENING NOTES RECEIVED PT IN BED, SLEEPING, NO SOB OR ACUTE DISTRESS NOTED. PT ABLE TO MAKE NEED KNOWN. BREATHING EVEN AND UNLABORED ON ROOM AIR. IV ACCESS ON THE L AC 20G D51/2NS @75ML/HR. NG TUBE IN PLACE AND CLAMPED, CURRENTLY NOT IN USE PER MD. SAFETY MEASURES IN PLACE. BED IN LOWEST LOCKED POSITION, CALL LIGHT WITHIN REACH AT ALL TIME, WILL CONTINUE TO MONITOR.
[2018-08-29 08:00] VITALS: BP 150/73
[2018-08-29 08:36] LABS: CALCIUM, SERUM 9.1 mg/dL (8.5-10.1); CARBON DIOXIDE 28 mmol/L (21-32); CHLORIDE 103 mmol/L (98-107); CREATININE 1.1 mg/dL (0.6-1.3); GLUCOSE 90 mg/dL (74-106); POTASSIUM 4.1 mmol/L (3.5-5.1); SODIUM SERUM 140 mmol/L (136-145); UREA NITROGEN, BLOOD 28 mg/dL (7-18)
[2018-08-29] MEDS: MULTIVIT W/MINERALS 1 TAB TABLET PO SCH (08:56)
[2018-08-29] MEDS: CALCITRIOL 0.25 MCG CAPSULE PO SCH (08:56)
[2018-08-29] MEDS: LEVETIRACETAM SOL (5 ML) 100 MG/ML UDC PO SCH ×2 (08:56→21:57)
[2018-08-29] MEDS: DOCUSATE SODIUM 100 MG CAPSULE PO SCH ×2 (08:56→17:40)
[2018-08-29] MEDS: ACIDOPHILUS/BULGARICUS 1 EACH TAB.CHEW PO SCH ×2 (08:56→17:33)
[2018-08-29] MEDS: POTASSIUM CHLORIDE 20 MEQ TAB.PRT.SR PO SCH (08:56)
[2018-08-29] MEDS: POLYETHYLENE GLYCOL 3350 17 GM POWD.PACK PO SCH (08:56)
[2018-08-29] MEDS: ASPIRIN EC 81 MG TABLET.DR PO SCH (08:56)
[2018-08-29] MEDS: MEGESTROL ACETATE SUSP 400 MG/10 ML UDC GT SCH (08:56)
[2018-08-29] MEDS: FUROSEMIDE 20 MG TABLET PO SCH (08:56)
[2018-08-29] MEDS: ASCORBIC ACID 500 MG TABLET PO SCH (08:56)
[2018-08-29] MEDS: FAMOTIDINE (20 MG) 20 MG TABLET GT SCH ×2 (08:56→17:33)
[2018-08-29] MEDS: MEMANTINE HCL 5 MG TABLET PO SCH ×2 (08:57→17:33)
[2018-08-29] MEDS: CARVEDILOL 3.125 MG TABLET PO SCH ×2 (08:57→17:32)
[2018-08-29 08:59] LABS: WHITE BLOOD COUNT (AUTO) 5.9 K/uL (4.3-11.0)
[2018-08-29 09:00] LABS: BASOPHILS % (AUTO) 0.8 % (0.0-2.0); EOSINOPHILS % (AUTO) 2.2 % (0.0-6.0); HEMATOCRIT 35 % (33-45); HEMOGLOBIN 11.9 g/dL (11.5-14.8); LYMPHOCYTES % (AUTO) 20.2 % (20.0-44.0); MEAN CORPUSCULAR HGB CONC 34 g/dl (31.0-36.0); MEAN CORPUSCULAR VOLUME 99 fL (82-100); MONOCYTES % (AUTO) 9.9 % (2.0-12.0); NEUTROPHILS % (AUTO) 66.9 % (43.0-81.0); PLATELET COUNT (AUTO) 199 /CMM (150-450); RED BLOOD CELL COUNT(AUTO) 3.54 MIL/uL (4.0-5.2)
[2018-08-29 09:01] LABS: LYMPHOCYTES # (AUTO) 1.2 /CMM (0.8-4.8); MONOCYTES # (AUTO) 0.6 /CMM (0.1-1.30); NEUTROPHILS # (AUTO) 3.9 /CMM (1.8-8.9)
[2018-08-29] MEDS: CYANOCOBALAMIN 100 MCG TABLET PO SCH (09:11)
[2018-08-29] MEDS: ENSURE ENLIVE 237 ML LIQUID (VANILLA) PO SCH ×4 (09:11→21:00)
[2018-08-29] MEDS: CHOLECALCIFEROL 1,000 UNIT TABLET (VIT D3) PO SCH (09:11)
[2018-08-29] MEDS: SORBITOL SOLUTION 30 ML PO SCH (09:11)
[2018-08-29] MEDS ORDERED: MODAFINIL 100 MG TABLET PO SCH (13:00)
[2018-08-29] MEDS: IV D5/0.45 NACL 1,000 ML IV PRN (13:56)
[2018-08-29 16:00] VITALS: BP 130/64
--- NOTE | 2018-08-29 16:26 | NUR ---
MS RN NOTE BLADDER SCAN COMPLETED AT APPROXIMATELY 1200. 350CC BLADDER RETENTION RESULTED. PATIENT DAUGHTER AT BEDSIDE. MD BEDSIDE TODAY AND SPOKE WITH DAUGHTER.
[2018-08-29] MEDS: INSULIN REGULAR, HUMAN 100 UNIT/ML 3 ML VIAL SQ PRN ×2 (18:14→22:01)
--- NOTE | 2018-08-29 19:15 | NUR ---
MS RN NOTES RECEIVED PT IN BED, SLEEPING BUT AWOKEN VERBALLY OR BY TOUCH. PT A/O X1. RESPIRATIONS EVEN AND UNLABORED WITH NO S/S OF ACUTE DISTRESS OR SOB NOTED. IV ACCESS ON THE LAC #20G RUNNING D5 1/2 NS @75ML/HR. NO S/S OF PAIN AT THIS TIME. NG TUBE IN PLACE AND CLAMPED. SAFETY MEASURES IN PLACE WITH BED IN LOWEST LOCKED POSITION WITH SIDE RAILS UP X2. CALL LIGHT WITHIN REACH. WILL CONTINUE TO MONITOR.
[2018-08-29 20:00] VITALS: BP 128/62
--- NOTE | 2018-08-29 20:01 | NUR ---
MS RN CLOSING NOTES PT IN BED, SLEEPING, NO SOB OR ACUTE DISTRESS NOTED. BREATHING EVEN AND UNLABORED ON ROOM AIR. IV ACCESS ON THE L AC 20G D51/2NS @75ML/HR. NG TUBE IN PLACE AND CLAMPED, CURRENTLY NOT IN USE PER MD. SAFETY MEASURES IN PLACE. BED IN LOWEST LOCKED POSITION, CALL LIGHT WITHIN REACH AT ALL TIME, CARE ENDORSED TO LEGAL REFEREE RN..
[2018-08-29] MEDS: ENOXAPARIN SODIUM 30 MG/0.3 ML DISP.SYRIN SQ SCH (21:59)
[2018-08-29] MEDS: ATORVASTATIN 10 MG TABLET PO SCH (21:59)
[2018-08-29] MEDS ORDERED: LORAZEPAM 0.5 MG TABLET PO SCH (22:00)
[2018-08-30 04:00] VITALS: BP 130/71
[2018-08-30] MEDS: IV D5/0.45 NACL 1,000 ML IV PRN (04:16)
[2018-08-30 07:13] LABS: BASOPHILS # (AUTO) 0.1 /CMM (0.0-0.2); BASOPHILS % (AUTO) 0.8 % (0.0-2.0); EOSINOPHILS % (AUTO) 2.4 % (0.0-6.0); HEMATOCRIT 37 % (33-45); HEMOGLOBIN 12.2 g/dL (11.5-14.8); LYMPHOCYTES # (AUTO) 1.3 /CMM (0.8-4.8); LYMPHOCYTES % (AUTO) 21.7 % (20.0-44.0); MEAN CORPUSCULAR HGB CONC 33 g/dl (31.0-36.0); MEAN CORPUSCULAR VOLUME 99 fL (82-100); MONOCYTES # (AUTO) 0.6 /CMM (0.1-1.30); MONOCYTES % (AUTO) 9.6 % (2.0-12.0); NEUTROPHILS # (AUTO) 3.9 /CMM (1.8-8.9); NEUTROPHILS % (AUTO) 65.5 % (43.0-81.0); PLATELET COUNT (AUTO) 199 /CMM (150-450); RED BLOOD CELL COUNT(AUTO) 3.68 MIL/uL (4.0-5.2)
[2018-08-30 07:14] LABS: CALCIUM, SERUM 8.8 mg/dL (8.5-10.1); CARBON DIOXIDE 29 mmol/L (21-32); CHLORIDE 101 mmol/L (98-107); CREATININE 1.1 mg/dL (0.6-1.3); GLUCOSE 94 mg/dL (74-106); POTASSIUM 4.2 mmol/L (3.5-5.1); SODIUM SERUM 138 mmol/L (136-145); UREA NITROGEN, BLOOD 30 mg/dL (7-18)
[2018-08-30] MEDS: BLOOD SUGAR DIAGNOSTIC 1 EACH STRIP IN SCH ×2 (07:14→12:20)
--- NOTE | 2018-08-30 07:22 | NUR ---
MS RN NOTES PT IN BED ASLEEP BUT EASILY AWOKEN VERBALLY OR BY TOUCH. PT A/O X1. RESPIRATIONS EVEN AND UNLABORED WITH NO S/S OF ACUTE DISTRESS OR SOB NOTED THROUGHOUT SHIFT. IV ACCESS ON THE LAC #20G RUNNING D5 1/2 NS @75ML/HR WITH NO S/S OF INFILTRATION OR REDNESS NOTED THROUGHOUT SHIFT. NO S/S OF PAIN AT THIS TIME. NG TUBE IN PLACE AND CLAMPED. PT KEPT CLEAN, DRY, AND COMFORTABLE. TURNED PT Q2 HRS FOR CIRCULATION. SAFETY MEASURES IN PLACE WITH BED IN LOWEST LOCKED POSITION WITH SIDE RAILS UP X2. CALL LIGHT WITHIN REACH. WILL ENDORSE TO ONCOMING NURSE FOR IMER.
[2018-08-30 08:00] VITALS: BP 157/65
--- NOTE | 2018-08-30 08:43 | NUR ---
MS RN OPENING NOTES RECEIVED PT IN BED, SLEEPING, NO SOB OR ACUTE DISTRESS NOTED. BREATHING EVEN AND UNLABORED ON ROOM AIR. IV ACCESS ON THE L AC 20G D51/2NS @75ML/HR. NG TUBE IN PLACE AND CLAMPED, CURRENTLY NOT IN USE PER MD. SAFETY MEASURES IN PLACE. BED IN LOWEST LOCKED POSITION, CALL LIGHT WITHIN REACH AT ALL TIME, WILL CONTINUE TO MONITOR.
[2018-08-30] MEDS ORDERED: MODAFINIL 100 MG TABLET PO SCH (09:00)
[2018-08-30] MEDS: POLYETHYLENE GLYCOL 3350 17 GM POWD.PACK PO SCH (09:12)
[2018-08-30] MEDS: MEGESTROL ACETATE SUSP 400 MG/10 ML UDC GT SCH (09:13)
[2018-08-30] MEDS: CALCITRIOL 0.25 MCG CAPSULE PO SCH (09:13)
[2018-08-30] MEDS: FAMOTIDINE (20 MG) 20 MG TABLET GT SCH (09:13)
[2018-08-30] MEDS: ASPIRIN EC 81 MG TABLET.DR PO SCH (09:13)
[2018-08-30] MEDS: LEVETIRACETAM SOL (5 ML) 100 MG/ML UDC PO SCH (09:13)
[2018-08-30] MEDS: DOCUSATE SODIUM 100 MG CAPSULE PO SCH (09:14)
[2018-08-30] MEDS: FUROSEMIDE 20 MG TABLET PO SCH (09:14)
[2018-08-30] MEDS: MEMANTINE HCL 5 MG TABLET PO SCH (09:14)
[2018-08-30] MEDS: POTASSIUM CHLORIDE 20 MEQ TAB.PRT.SR PO SCH (09:14)
[2018-08-30] MEDS: CHOLECALCIFEROL 1,000 UNIT TABLET (VIT D3) PO SCH (09:14)
[2018-08-30] MEDS: ACIDOPHILUS/BULGARICUS 1 EACH TAB.CHEW PO SCH (09:14)
[2018-08-30] MEDS: MULTIVIT W/MINERALS 1 TAB TABLET PO SCH (09:14)
[2018-08-30] MEDS: ASCORBIC ACID 500 MG TABLET PO SCH (09:14)
[2018-08-30 09:15] VITALS: BP 157/65
[2018-08-30] MEDS: ENSURE ENLIVE 237 ML LIQUID (VANILLA) PO SCH ×2 (09:15→12:30)
[2018-08-30] MEDS: CARVEDILOL 3.125 MG TABLET PO SCH (09:15)
[2018-08-30] MEDS: SORBITOL SOLUTION 30 ML PO SCH (09:15)
[2018-08-30] MEDS: CYANOCOBALAMIN 100 MCG TABLET PO SCH (09:17)
--- NOTE | 2018-08-30 11:00 | NUR ---
BLADDER SCAN COMPLETED ORDERED. 135CC RETENTION FOUND. NO ADDITIONAL INTERVENTIONS ORDERED.
[2018-08-30] MEDS ORDERED: LORA0.5T PO (11:40)
[2018-08-30] MEDS ORDERED: MODA100T14 PO (11:40)
[2018-08-30] MEDS: INSULIN REGULAR, HUMAN 100 UNIT/ML 3 ML VIAL SQ PRN (12:22)
--- NOTE | 2018-08-30 15:59 | NUR ---
MS SALES FLOOR TEAM LEADER NOTE PATIENT DISCHARGED VIA EMT TRANSPORT TO [facility]. REPORT GIVEN BY AI WASHBURN TO AI MYERS. PATIENT A/O X 2, V/S WNL, NO SOB OR ACUTE DISTRESS NOTED. NG TUBE AND LAC #20 SL REMOVED. NO MONITOR, [place] OR OTHER TUBES/LINES ON PATIENT. PATIENT DAUGHTER AND CAREGIVER AT BEDSIDE DURING DISCHARGE. REPORT GIVEN TO EMT BY AI WASHBURN. BELONGINGS LIST COMPLETED. NO BELONGINGS LISTED. PATIENT EDUCATION GIVEN TO DAUGHTER INCLUDING EXPLANATION OF NEW MEDICATIONS. WOUND PHOTOGRAPHS TAKEN AND PLACED IN CHART. PATIENT D/C WITHOUT INCIDENT.
== END 2018-08-30 15:46 | DRG 689 ==
LOC: ER 12:15 → TELE1 14:37 → MEDSG1 08-22 09:07
PROVIDERS: ADMIT Hospitalist; ATTEND Nurse Practitioner Acute Care
PROC: 0HBRXZZ Excision of Toe Nail, External Approach (ICD-10-PCS; principal; 2018-08-22)
DX: N39.0 Urinary tract infection, site not specified (principal); R53.2 Functional quadriplegia; G93.41 Metabolic encephalopathy; E44.0 Moderate protein-calorie malnutrition; C90.00 Multiple myeloma not having achieved remission; D68.59 Other primary thrombophilia; I50.32 Chronic diastolic (congestive) heart failure; I13.0 Hypertensive heart and chronic kidney disease with heart failure and stage 1 through stage 4 chronic kidney disease, or unspecified chronic kidney disease; J98.11 Atelectasis; R62.7 Adult failure to thrive; G40.909 Epilepsy, unspecified, not intractable, without status epilepticus; L89.621 Pressure ulcer of left heel, stage 1; B96.20 Unspecified Escherichia coli [E. coli] as the cause of diseases classified elsewhere; Z68.27 Body mass index [BMI] 27.0-27.9, adult; F03.90 Unspecified dementia, unspecified severity, without behavioral disturbance, psychotic disturbance, mood disturbance, and anxiety; E78.5 Hyperlipidemia, unspecified; I25.10 Atherosclerotic heart disease of native coronary artery without angina pectoris; Z86.73 Personal history of transient ischemic attack (TIA), and cerebral infarction without residual deficits; N18.9 Chronic kidney disease, unspecified; K21.9 Gastro-esophageal reflux disease without esophagitis; Z87.440 Personal history of urinary (tract) infections; M81.0 Age-related osteoporosis without current pathological fracture; M19.90 Unspecified osteoarthritis, unspecified site; Z74.01 Bed confinement status; B35.1 Tinea unguium; S91.219A Laceration without foreign body of unspecified toe(s) with damage to nail, initial encounter; X58.XXXA Exposure to other specified factors, initial encounter; Y92.89 Other specified places as the place of occurrence of the external cause; L60.3 Nail dystrophy; R33.9 Retention of urine, unspecified; G89.29 Other chronic pain; M54.5 Low back pain; D64.9 Anemia, unspecified; K80.20 Calculus of gallbladder without cholecystitis without obstruction; E66.9 Obesity, unspecified
CPT/HCPCS: 36415; 70450-TC; 70551-TC; 71045-TC; 76856-TC; 80048-TC; 80053-TC; 80061-TC; 80076-TC; 81000-TC; 82040-TC; 82962-TC; 83605-TC; 83735-TC; 84100-TC; 84155-TC; 84439-TC; 84443-TC; 84481; 84484-TC; 85025-TC; 85730-TC; 87040-TC; 87081-TC; 87086-TC; 87186-TC; 92526; 92611-TC; 93307-TC; 93880-TC; 95819-TC; 97112-TC; 97530-TC; A6403; G0378; J0696; J1650; J1815; J1953; J3490; J7030; J7042; J7060